=== PATIENT | female | born 1960 | race Caucasian/White ===

== ENCOUNTER → 2016-04-11 | Outpatient (CLI) | payer BC ==
[~2016-04-11] MED LIST: ACET325T38 PO; ASPI1TAB PO; CATHETER FLUSH 10 ML SYR IV PRN; CLC500CT PO; DIPH25TA82 PO; IOHEXOL 350 MG/ML 100 ML (OMNIPAQUE 350) VIAL IV ONE; LANS30CA PO; LVT.025T PO; METO50TA7 PO; NS 100 ML (IVPB) BAG IV ONE; OMEP20CA12 PO; VITAMINES PO; [UNRECOGNIZED DRUG - OTHER] PO
--- OUTSIDE RECORDS SUMMARY | 2016-04-11 14:28 | XMS REPORT | Continuity of Care Document ---
Author Author [facility] Organization [facility] Address Unknown Phone Unavailable Care Team Providers Care Tire Rebuilder Name Role Phone MOLINA VILLALOBOS MD PCP Insurance Providers Payer Name Policy Number Subscriber Name Relationship [facility] [id number] Miguel Sosa 01 Advance Directives Directive Response Recorded Date/Time Advance Directives No 08/02/15 11:30pm Health Care Power of Baker Apprentice No 08/02/15 11:30pm Organ Donor No 08/02/15 11:30pm Resuscitation Status Full Code 08/02/15 11:30pm Chief Complaint and Reason for Visit Chief Complaint Laceration Reason for Visit Laceration Problems Active Problems Medical Problem Onset Date Status Chest pain Unknown Acute Gastritis Unknown Acute Hypertension Unknown Chronic Hypothyroid Unknown Chronic Laceration Unknown Acute Medications Current Home Medications Medication Dose Units Route Directions Days/Qty Instructions Start Date Levothyroxine Sodium (Levothroid) 25 Mcg 25 Mcg Oral Daily 07/22/12 Metoprolol Succinate 50 Mg 50 Mg Oral Bedtime 07/22/12 Diphenhydramine Hcl (Benadryl) 25 Mg 25 Mg Oral Three Times A Day as needed for Allergies 04/15/14 Lansoprazole 30 Mg 30 Mg Oral Daily as needed for Acid Reflux/Heartburn 07/10/14 Acetaminophen 325 Mg 500 Mg Oral Three Times A Day as needed for Mild Pain 07/10/14 Past Home Medications Medication Directions Ordered Status [Vitamines] , Oral 07/22/12 Discontinued [Vitamine B] , Oral 07/22/12 Discontinued Calcium Carbonate 500 Mg Tab.chew, 500 Mg Oral As Needed 07/22/12 Discontinued Omeprazole 20 Mg Capsule.dr, 20 Mg Oral Daily 04/15/14 Discontinued Acetaminophen 325 Mg Tablet, 325 Mg Oral As Needed 04/15/14 Discontinued Aspirin/Acetaminophen/Caffeine 1 Tab Tablet, 1 Tab Oral As Needed 04/15/14 Discontinued Lansoprazole 30 Mg Capsule.dr, 30 Mg Oral Daily 07/10/14 Discontinued Social History Social History Problem Response Recorded Date/Time Alcohol Use Denies Use 08/02/2015 11:30pm Recreational Drug Use No 08/02/2015 11:30pm Recent Foreign Travel No 08/02/2015 11:31pm Recent Infectious Disease Exposure No 08/02/2015 11:31pm Hospitalization with Isolation Denies 08/02/2015 11:31pm Smoking Status Never a Smoker 08/02/2015 11:30pm Do you dip or chew tobacco? No 08/02/2015 11:30pm Query Response Start Date Stop Date Smoking Status Never a Smoker Hospital Discharge Instructions No hospital discharge instructions. Plan of Care Discharge Date 08/03/15 12:59am Disposition 01 HOME, SELF-CARE Condition at Discharge Improved Instructions/Education Provided Finger Laceration (ED) Prescriptions See Medication Section Referrals MOLINA VILLALOBOS MD - Primary Care Physician Additional Instructions/Education Keep the wound clean and dry except for normal handwashing and showering. Allow the glue to naturally slough off. You may trim the edges with a small scissors or finger now clippers taking care not to cut the skin. Monitor for signs of infection such as increasing redness, increasing pain, puslike drainage, or fever. Return to care if you notice these symptoms. All discharge instructions reviewed with patient and/or family. Voiced understanding. Functional Status No functional status results. Allergies, Adverse Reactions, Alerts Allergen Type Severity Reaction Status Last Updated NKANo Known Allergies Allergy Unknown Active 04/23/06 Immunizations Name Given Type Hepatitis A No Historical Hepatitis B No Historical Tetanus Booster (TDap) More than 5yrs Historical Vital Signs Acute Vital Signs Vital Response Date/Time Temperature (Fahrenheit) 97.3 degrees F (97.6 - 99.5) 08/02/2015 11:31pm Temperature (Calculated Celsius) 36.06323 degrees C (36.4 - 37.5) 08/02/2015 11:31pm Pulse Rate (adult) 70 bpm (60 - 90) 08/02/2015 11:31pm Respiratory Rate 18 bpm (12 - 24) 08/02/2015 11:31pm O2 Sat by Pulse Oximetry 97 % (88 - 100) 08/02/2015 11:31pm Blood Pressure 162/91 mm Hg 08/02/2015 11:31pm Blood Pressure Mean 114 mm Hg 08/02/2015 11:31pm Pain Pain Intensity 2 08/02/2015 11:31pm Height (Feet) 5 feet 08/02/2015 11:31pm Height (Inches) 5 inches 08/02/2015 11:31pm Height (Calculated Centimeters) 165.153520 cm 08/02/2015 11:31pm Weight (Pounds) 185 pounds 08/02/2015 11:31pm Weight (Calculated Kilograms) 83.522539 kilograms 08/02/2015 11:31pm Height 5 ft 5 in Weight 185 lb Body Mass Index 30.8 kg/m^2 Results No known relevant diagnostic tests, laboratory data and/or discharge summary. Procedures No known history of procedures. Encounters Encounter Location Arrival/Admit Date Discharge/Depart Date Attending Provider Departed Emergency Room [facility] 08/02/15 11:24pm 12:59am LINA NUNN MD Recent Diagnosis
[2016-04-11 15:09] LABS: BASOPHILS % (AUTO) 0 % (0-10); EOSINOPHILS # (AUTO) 0.2 10^3/uL (0.0-0.3); EOSINOPHILS % (AUTO) 4 % (0-10); LYMPHOCYTES # (AUTO) 1.5 X 10^3 (1.0-4.0); LYMPHOCYTES % (AUTO) 27 % (12-44); MEAN CORPUSCULAR HEMOGLOBIN 28 PG (25-34); MEAN CORPUSCULAR HGB CONC 32 G/DL (32-36); MEAN CORPUSCULAR VOLUME 87 FL (80-99); MEAN PLATELET VOLUME 9.3 FL (7.4-10.4); MONOCYTES # (AUTO) 0.8 X 10^3 (0.0-1.0); MONOCYTES % (AUTO) 14 % (0-12); NEUTROPHILS # (AUTO) 3.1 X 10^3 (1.8-7.8); NEUTROPHILS % (AUTO) 55 % (42-75); PLATELET COUNT 309 10^3/uL (130-400); RED BLOOD COUNT 4.81 10^6/uL (4.35-5.85); RED CELL DISTRIBUTION WIDTH 14.7 % (10.0-14.5); WHITE BLOOD COUNT 5.6 10^3/uL (4.3-11.0)
[2016-04-11 15:28] LABS: ALANINE AMINOTRANSFERASE 29 U/L (0-55); ALBUMIN 4.4 G/DL (3.2-4.5); ANION GAP 12 MMOL/L (5-14); ASPARTATE AMINO TRANSFERASE 31 U/L (5-34); BILIRUBIN,TOTAL 0.4 MG/DL (0.1-1.0); BLOOD UREA NITROGEN 12 MG/DL (7-18); BUN/CREATININE RATIO 15; CARBON DIOXIDE 24 MMOL/L (21-32); CHLORIDE 106 MMOL/L (98-107); GFR ESTIMATED > 60; GLUCOSE 100 MG/DL (70-105); POTASSIUM 3.9 MMOL/L (3.6-5.0); SODIUM 142 MMOL/L (135-145); TOTAL PROTEIN 7.1 G/DL (6.4-8.2)
[2016-04-11 15:52] LABS: THYROID STIMULATING HORMONE 1.38 UIU/ML (0.35-4.94)
--- NOTE | 2016-04-11 16:44 | Diagnostic Imaging Report ---
PROCEDURE: CT abdomen and pelvis with contrast. TECHNIQUE: Multiple contiguous axial images were obtained through the abdomen and pelvis after administration of intravenous contrast. INDICATION: Neck and abdominal pain, difficulty swallowing, suspicion for hernia. COMPARISON: I have no priors. FINDINGS: The lung bases are clear. The visualized lower thoracic esophagus and EG junction appeared unremarkable. No hernia was demonstrated at this exam. The liver, spleen, adrenals, pancreas, and gallbladder are unremarkable. There is no biliary ductal dilatation. A surface marker is placed in the left abdominal wall just above the umbilicus with no underlying hernia, mass, or fluid collection. There are some chronic calcifications associated with the rectus sheath noted. No fluid collection or hematoma. Kidneys are unobstructed and normal. The adrenals are negative. There is no mesenteric nor retroperitoneal lymphadenopathy. The uterus, adnexa, and urinary bladder are unremarkable. There is no appendicitis or diverticulitis. There is no ascites, abscess, hematoma, or other fluid collection. No pneumatosis or free air. No aneurysm, adenopathy, or mass. The osseous structures were nonacute. IMPRESSION: Unremarkable abdominal and pelvic CT. Dictated by: Dictated on workstation # [id number]
== END ==
LOC: RAD 14:20
PROVIDERS: ATTEND Nurse Practitioner Family
DX: R10.13 Epigastric pain (principal); R07.9 Chest pain, unspecified; E04.1 Nontoxic single thyroid nodule
CPT/HCPCS: 36415; 74177; 80053; 84439; 84443; 85025; 93005

== ENCOUNTER → 2016-05-03 | Outpatient (CLI) | payer BC ==
[~2016-05-03] MED LIST changes: -CATHETER FLUSH 10 ML SYR IV PRN; -IOHEXOL 350 MG/ML 100 ML (OMNIPAQUE 350) VIAL IV ONE; -NS 100 ML (IVPB) BAG IV ONE
--- NOTE | 2016-05-03 14:38 | Diagnostic Imaging Report ---
PROCEDURE: US Thyroid. TECHNIQUE: Multiple real-time grayscale images were obtained of the thyroid in various projections. INDICATION: Thyroid nodules. FINDINGS: The right thyroid lobe is 4.6 x 1.3 x 1.5 cm. The left lobe is 5.2 x 1.1 x 1.2 cm. In the right lobe, there is a nodule measuring 1.3 x 0.9 x 1.2 cm and a slightly smaller nodule more superiorly measuring 0.9 cm in size. Both nodules are isoechoic and demonstrate increased vascularity compatible with solid nodules. The background thyroid parenchyma is slightly heterogenous with no other discrete lesion seen. When compared to prior study of a 09/02/2014, there is slight increase in size of the dominant nodule. IMPRESSION: Two solid thyroid nodules in the right lobe up to 1.3 cm in size, slightly larger compared to 09/02/2014 exam. Etiology is still favored to be benign. However, due to the mild enlargement, close followup exams or evaluation with ultrasound-guided biopsy is recommended. Dictated by: Dictated on workstation # [id number]
== END ==
LOC: RAD 09:40
PROVIDERS: ATTEND Nurse Practitioner Family
DX: E04.1 Nontoxic single thyroid nodule (principal)
CPT/HCPCS: 76536

== ENCOUNTER → 2016-05-20 | Outpatient (CLI) | payer BC ==
[~2016-05-20] VITALS: Ht 165.1 cm; Wt 84.0 kg
[~2016-05-20] MED LIST changes: +LIDOCAINE 1% INJ 20 ML (XYLOCAINE) VIAL INJ ONE
[2016-05-20 13:24] VITALS: BP 128/80
[2016-05-20 14:03] VITALS: BP 124/78
--- NOTE | 2016-05-20 14:43 | Diagnostic Imaging Report ---
EXAMINATION: US-guided fine needle biopsy-thyroid. INDICATION: Right thyroid nodule. CONSENT: Informed consent was obtained from the patient. The risks, benefits, potential complications and alternatives were reviewed and all questions answered to the patient's satisfaction. FINDINGS: Right thyroid solid nodule. PROCEDURE: After sterile preparation and draping, 1% lidocaine was utilized for local anesthesia. A 25-gauge hypodermic needle is introduced into the right thyroid nodule under live ultrasound guidance. After confirming adequate positioning with saved ultrasound images, multiple passes of fine needle aspiration is performed and repeated 4 times. The patient tolerated the procedure well with no immediate complications. IMPRESSION: Successful US-guided fine needle aspiration biopsy of right thyroid nodule. Dictated by: Dictated on workstation # [id number]
== END ==
LOC: RAD 12:38
PROVIDERS: ATTEND Nurse Practitioner Family
DX: E04.1 Nontoxic single thyroid nodule (principal)
CPT/HCPCS: 76942; 88305

== ENCOUNTER → 2016-11-05 | Outpatient (CLI) | payer BC ==
[~2016-11-05] MED LIST changes: -LIDOCAINE 1% INJ 20 ML (XYLOCAINE) VIAL INJ ONE
--- NOTE | 2016-11-05 16:16 | Diagnostic Imaging Report ---
PROCEDURE: US Thyroid. TECHNIQUE: Multiple real-time grayscale images were obtained of the thyroid in various projections. INDICATION: Thyroid nodules. COMPARISON: 05/03/2016. FINDINGS: The right thyroid lobe is 4 x 1.1 x 1.6 cm. The left lobe is 4.7 x 1.4 x 1.2 cm. The right lobe demonstrates superiorly a nodule measuring 0.7 x 0.8 x 0.7 cm and at mid right thyroid level another nodule measuring 1.1 x 0.9 x 0.8 cm. Internal vascularity is demonstrated suggestive of solid nature of both nodules. The mid right thyroid nodule is minimally smaller compared to the previous exam measurements of 1.3 cm and the upper right thyroid nodule is unchanged. IMPRESSION: Thyroid nodules in the upper and mid right thyroid lobe measuring up to 1.1 cm in size with no adverse development. Note is made of prior biopsy. Correlate with pathology results. Dictated by: Dictated on workstation # [id number]
== END ==
LOC: RAD 13:45
PROVIDERS: ATTEND Family Medicine
DX: E04.2 Nontoxic multinodular goiter (principal)
CPT/HCPCS: 76536

== ENCOUNTER → 2016-11-28 | Outpatient (CLI) | payer BC | LOC: LAB 13:30 | PROVIDERS: ATTEND Surgery | DX: E04.1 Nontoxic single thyroid nodule (principal); Z80.8 Family history of malignant neoplasm of other organs or systems | CPT/HCPCS: 36415; 84436; 84443; 86376; 86800 ==

== ENCOUNTER 2016-12-12 05:31 | Outpatient (CLI) | payer BC ==
[~2016-12-12] VITALS: Ht 165.1 cm; Wt 89.9 kg
[2016-12-12] MEDS ORDERED: CALC500T7 PO (14:46)
[2016-12-12] MEDS ORDERED: DIPH25CA6 PO (14:46)
[2016-12-12] MEDS ORDERED: CALC-6 PO (14:46)
[2016-12-12] MEDS ORDERED: LEVO25TA5 PO (14:46)
[2016-12-12] MEDS ORDERED: MULT-35 PO (14:46)
[2016-12-12] MEDS ORDERED: ACET325T49 PO (14:46)
[2016-12-12] MEDS ORDERED: METO-272 PO (14:46)
== END 2016-12-12 15:12 ==
LOC: PREOP 05:31
PROVIDERS: ATTEND Surgery
DX: Z01.818 Encounter for other preprocedural examination (principal); E04.9 Nontoxic goiter, unspecified; Z80.8 Family history of malignant neoplasm of other organs or systems

== ENCOUNTER 2016-12-18 06:00 | Day surgery (SDC) | payer BC ==
[~2016-12-18] VITALS: Ht 165.1 cm; Wt 89.9 kg
[~2016-12-18 06:00] MED LIST changes: +ACET325T49 PO; +CALC-6 PO; +CALC500T7 PO; +DIPH25CA6 PO; +LEVO25TA5 PO; +METO-370 PO; +MULT-35 PO
--- OUTSIDE RECORDS SUMMARY | 2016-12-18 06:04 | XMS REPORT ---
Author MADHAV Velasco Organization [employer] Address Unknown Phone Unavailable Care Team Providers Care Generator Rebuilder Name Role Phone MADHAV JIMÉNEZ Unavailable Allergies No Known Allergies Problems Problem Type Condition Code Onset Dates Condition Status Assessment Encounter for immunization Z23 Active Medications No Known Medications Procedures Procedure Coding System Code Date SINGLE IMMUNIZATION ADMIN CPT-4 80573 Nov 28, 2014 TDAP (BOOSTRIX) CPT-4 68947 Nov 28, 2014 Results No Known Results Immunizations Vaccine Administration Date TDAP (BOOSTRIX) Nov 28, 2014 Summary Purpose [employer] Submission
[2016-12-18 06:15] VITALS: BP 129/90
[2016-12-18] MEDS: LACTATED RINGERS 1,000 ML IV SCH ×4 (06:30→14:28)
[2016-12-18] MEDS ORDERED: LACTATED RINGERS 1,000 ML IV ONE (06:35)
[2016-12-18] MEDS ORDERED: SEVOFLURANE (ULTANE) 15 ML INHAL SOLN ONE ×10 (06:35→10:15)
[2016-12-18] MEDS ORDERED: DEXAMETHASONE 10 MG/ML (DECADRON) 1 ML VIAL ONE (06:35)
[2016-12-18] MEDS ORDERED: proPOfol 200 MG/20 ML (DIPRIVAN) VIAL IV ONE (06:35)
[2016-12-18] MEDS ORDERED: HURRICAINE EXT TUBE (BENZOCAINE) ONE (06:35)
[2016-12-18] MEDS ORDERED: LIDOCAINE PF 2% 5 ML (XYLOCAINE) VIAL ONE ×2 (06:35→06:41)
[2016-12-18] MEDS ORDERED: ATRACURIUM 50 MG/5 ML (TRACRIUM) IV ONE (06:46)
[2016-12-18 06:50] LABS: MEAN PLATELET VOLUME 9.7 FL (7.4-10.4); RED BLOOD COUNT 5.08 10^6/uL (4.35-5.85); RED CELL DISTRIBUTION WIDTH 13.1 % (10.0-14.5); WHITE BLOOD COUNT 5.8 10^3/uL (4.3-11.0)
[2016-12-18] MEDS ORDERED: DEXMEDETOMIDINE 200 MCG/2 ML (PRECEDEX) VIAL IV ONE (06:59)
[2016-12-18] MEDS ORDERED: ceFAZolin 2 GM/NS 50 ML IV ONE (07:00)
[2016-12-18] MEDS ORDERED: THROMBIN SPRAY KIT 5,000 UNIT VIAL ONE (07:16)
[2016-12-18] MEDS ORDERED: BUP/EPI 0.5% 1:200,000 (MARCAINE) 10ML VIAL IJ ONE (07:16)
[2016-12-18 07:17] LABS: ANION GAP 11 MMOL/L (5-14); BLOOD UREA NITROGEN 14 MG/DL (7-18); BUN/CREATININE RATIO 18; CALCIUM 9.7 MG/DL (8.5-10.1); CARBON DIOXIDE 22 MMOL/L (21-32); CHLORIDE 107 MMOL/L (98-107); CREATININE SERUM 0.76 MG/DL (0.60-1.30); GFR ESTIMATED > 60; GLUCOSE 112 MG/DL (70-105); POTASSIUM 3.9 MMOL/L (3.6-5.0); SODIUM 140 MMOL/L (135-145)
--- NOTE | 2016-12-18 07:50 | Progress Note-Pre Operative ---
Pre-Operative Progress Note H&P Reviewed The H&P was reviewed, patient examined and no changes noted. Date Seen by Provider: Nov 28, 2016 Time Seen by Provider: 11:45 Date H&P Reviewed: Dec 18, 2016 Time H&P Reviewed: 07:49 Pre-Operative Diagnosis: Right thyroid nodules NIKOLE TORRES MD Dec 18, 2016 7:50 am
--- NOTE | 2016-12-18 09:45 | Operative Report ---
Operative Report Date of Procedure/Surgery Dec 18, 2016 Surgeon (s) NIKOLE TORRES MD Bedspread Folder (s): Junie luong (Med Student) Post-Operative Diagnosis same Procedure Performed 1.right hemithyroidectomy frozen section analysis 2. Intraoperative nerve monitoring( recurrent laryngeal nerve) Description of Procedure Anesthesia Type: General Estimated blood loss (mL): minimal Specimen(s) collected/removed right lobe of thyroid with the isthmus Description of the Procedure Indication for procedure: This lady was found to have right thyroid nodules, the larger measuring 1.5 cm in diameter. Fine needle aspiration was non diagnostic; having discussed the options of repeating the biopsy versus proceeding with surgery to achieve a definitive diagnosis, it was felt reasonable to proceed with an operative approach. Should carcinoma be discovered on frozen section, the need for completion thyroidectomy was discussed with her.Informed consent was obtained after reviewing the operative details and complications of postoperative hematoma, transient hoarseness of voice and see me. The potential for finding a carcinoma on permanent histologic examination and the requirement for completion thyroidectomy at a later date was also highlighted. Description of the procedure: she was placed supine on the operative table and general anesthesia induced using an endotracheal tube, integrated with the nerve monitoring device. 1 g of Ancef was administered intravenously as prophylaxis against wound infection. Sequential compression devices were placed around her legs, to minimize the risk of venous thrombosis. Her neck and upper chest were prepared and draped in the usual sterile manner. Pre-emptive analgesia was established using 0.25 percent Marcaine with epinephrine. A 3.5 cm transverse incision was made along the skin crease of the neck and platysma incised transversely. Flaps were raised superiorly to the level of the thyroid cartilage and inferiorly to the sternal notch. Cervical fascia was incised vertically and the strap muscles were retracted laterally. The right lobe of the thyroid was retracted, displaying both parathyroid glands. They were preserved, along with their blood supply. Superior thyroid artery was then controlled between 0 silk sutures, reinforced with a Ligaclip. Branches of the inferior thyroid artery were controlled using ligaclips and minimal use of Harmonic scalpel. Recurrent laryngeal nerve was found in its conventional position and preserved by constant visual inspection and intermittent nerve stimulation technique. The isthmus of the thyroid was then divided and the right lobe sent for frozen section analysis. The pathologist reported benign changes within the nodule and therefore the operation was concluded. We had the anesthesiologist conduct Valsalva maneuver, looking for any venous bleeding. There wasn't any. Neck was then flexed, in preparation for closure. Gelfoam, soaked in thrombin solution was placed along the tracheal-esophageal groove, to optimize hemostasis. Cervical fascia was approximated with 3-0 Vicryl and platysma using the same material. Skin was closed using 4-0 Vicryl, in a subcuticular fashion. Findings of the Procedure See op report Allergies and Home Medications Allergies Coded Allergies: acetaminophen (Verified Allergy, Mild, HIVES, 12/12/16) butalbital (Verified Allergy, Mild, HIVES, 12/12/16) caffeine (Verified Allergy, Mild, HIVES, 12/12/16) Home Medications Acetaminophen 325 Mg Tablet, 650 MG PO PRN, (Reported) Calcium Carbonate 200 Mg Tab.chew, 200 MG PO PRN, (Reported) Calcium Carbonate/Vitamin D3 1 Each Tablet, 1 EACH PO DAILY, (Reported) Diphenhydramine HCl 25 Mg Capsule, PO BID PRN for CONGESTION, (Reported) Levothyroxine Sodium 25 Mcg Tablet, 25 MCG PO DAILY, (Reported) Metoprolol Succinate 50 Mg Tab.er.24h, 50 MG PO HS, (Reported) Multivitamin 1 Each Tablet, 1 EACH PO DAILY, (Reported) NIKOLE TORRES MD Dec 18, 2016 9:45 am
[2016-12-18] MEDS ORDERED: HYDR-3812 PO (09:55)
--- NOTE | 2016-12-18 09:57 | Discharge Inst-Simple/Standard ---
Discharge Inst-Standard Discharge Medications New, Converted or Re-Newed RX: RX on Chart Patient Instructions/Follow Up Plan of Care/Instructions/FU: dressings off in a.m. Follow-up in 3 weeks Activity as Tolerated: Yes Discharge Diet: No Restrictions NIKOLE TORRES MD Dec 18, 2016 9:57 am
[2016-12-18] MEDS ORDERED: fentaNYL INJECTION 100 MCG/2 ML AMP IVP PRN (10:00)
[2016-12-18] MEDS ORDERED: HYDROcodone/APAP 5 MG/325 MG (LORTAB) TAB PO PRN (10:00)
[2016-12-18] MEDS ORDERED: ONDANSETRON 4 MG/2 ML (SDV) Z0FRAN IVP PRN (10:00)
[2016-12-18] MEDS ORDERED: morphine INJ 10 MG/ML 1ML (SYR OR VIAL) ONE (10:00)
[2016-12-18] MEDS: morphine INJ 10 MG/ML 1ML (SYR OR VIAL) IVP PRN ×3 (10:26→10:35)
[2016-12-18 12:10] VITALS: BP 111/71
[2016-12-18] MEDS ORDERED: INFLUENZA TRIvalent 2017-2018 0.5 ML/45 MCG SYR IM ONE (13:30)
[2016-12-18 16:00] VITALS: BP 116/70
[2016-12-18] MEDS ORDERED: METOCLOPRAMIDE INJ 10 MG/2 ML (REGLAN) IVP NR (16:00)
[2016-12-18 20:00] VITALS: BP 118/74
[2016-12-18] MEDS ORDERED: meTOproloL SUCCINATE 50 MG (TOPROL XL) TAB PO SCH (21:00)
[2016-12-19] VITALS: BP 129/73
[2016-12-19] MEDS: LACTATED RINGERS 1,000 ML IV SCH ×3 (02:28→12:27)
[2016-12-19 04:00] VITALS: BP 136/77
[2016-12-19 07:36] VITALS: BP 122/72
--- NOTE | 2016-12-19 10:55 | Progress Note-Standard ---
Standard Progress Note Progress Notes/Assess & Plan Date Seen by Provider: Dec 19, 2016 Time Seen by Provider: 10:54 Progress/Assessment & Plan doing well. Postoperative nausea vomiting resolved. No hematoma. Vocal cord function normal. Discharge home Final Diagnosis thyroid nodule NIKOLE TORRES MD Dec 19, 2016 10:55 am
[2016-12-19 12:00] VITALS: BP 132/74
--- NOTE | 2016-12-19 14:55 | Anesthesia-General Post-Op ---
General Post Op Complications Complications None Follow Up Care/Instructions Patient Instructions None needed. Anesthesia/Patient Condition Patient Condition Patient is doing well, no complaints at this time, stable vital signs. Patient reports PONV yesterday and was instructed to alert anesthesia in advance for further surgeries. She state Kareem took care of it.. No complications reported per nursing. CHRISTINE LEE CRNA Dec 19, 2016 14:55
== END 2016-12-19 12:20 | disposition home or self-care (01) ==
LOC: SDC 06:00 → 4TH 11:22 → SDC 12-19 12:20
PROVIDERS: ATTEND Surgery
DX: E04.2 Nontoxic multinodular goiter (principal); E03.9 Hypothyroidism, unspecified; I10 Essential (primary) hypertension; I08.1 Rheumatic disorders of both mitral and tricuspid valves; K21.9 Gastro-esophageal reflux disease without esophagitis; E66.9 Obesity, unspecified; Z68.33 Body mass index [BMI] 33.0-33.9, adult; Z80.8 Family history of malignant neoplasm of other organs or systems; Z79.899 Other long term (current) drug therapy
CPT/HCPCS: 36415; 80048; 84703; 85027; 87081; 94664

== ENCOUNTER → 2017-02-05 | Outpatient (CLI) | payer BC ==
[~2017-02-05] MED LIST changes: +ACHD5005 PO
== END ==
LOC: LAB 15:08
PROVIDERS: ATTEND Surgery
DX: E89.0 Postprocedural hypothyroidism (principal)
CPT/HCPCS: 36415; 84436; 84443

== ENCOUNTER 2017-08-25 05:57 | Outpatient (CLI) | payer BC ==
[~2017-08-25] VITALS: Ht 165.1 cm; Wt 89.8 kg
[2017-08-25] MEDS ORDERED: LEVO50TA6 PO (14:25)
== END 2017-08-25 14:26 ==
LOC: PREOP 05:57
PROVIDERS: ATTEND Surgery
DX: Z01.818 Encounter for other preprocedural examination (principal); Z12.11 Encounter for screening for malignant neoplasm of colon; Z80.0 Family history of malignant neoplasm of digestive organs

== ENCOUNTER 2017-09-01 10:10 | Day surgery (SDC) | payer BC ==
[~2017-09-01] VITALS: Ht 165.1 cm; Wt 89.8 kg
[~2017-09-01 10:10] MED LIST changes: +LEVO50TA6 PO
[2017-09-01] MEDS ORDERED: NS IV 500 ML 500 ML ONE (10:26)
[2017-09-01] MEDS ORDERED: NS IV 500 ML 500 ML IV PRN (10:27)
--- OUTSIDE RECORDS SUMMARY | 2017-09-01 10:37 | XMS REPORT | CCD ---
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 Name Role Phone PP Unavailable CCM Unavailable Summary Purpose Interface Exchange Insurance Providers Payer name Policy type / Coverage type Covered libertarian ID Effective Begin Date Effective End Date Blue Cross [facility] Blue Cross/[facility] [id number] 2016 Unknown Family history Mother ( at [id number]) Diagnosis Age At Onset Hypertension Unknown Colon cancer Unknown Asthma Unknown kidney disease Unknown Father Diagnosis Age At Onset Cancer Unknown Diabetes Unknown Hyperlipidemia Unknown Osteomyelitis Unknown Arthritis Unknown Hypertension Unknown Social History Social History Element Codes Description Effective Dates Marital status Unknown Miguel 12/28/2015 Number of children Unknown 3 08/30/[address]: 925872776 Never smoker 08/30/[address]: 277439343 Never drinks alcohol 08/30/2014 Allergies, Adverse Reactions, Alerts Allergies, Adverse Reactions, Alerts data not found Past Medical History Illness Codes Condition Status Onset Date Resolved Date Atrophy of thyroid (acquired) ICD-9: 244.8 ICD-10: E03.4 Active 05/22/2016 Unknown Essential (primary) hypertension ICD-9: 401.1 ICD-10: I10 Active 05/22/2016 Unknown Gastro-esophageal reflux disease without esophagitis ICD-9: 530.81 ICD-10: K21.9 Active 12/27/2015 Unknown Pain in left knee ICD- 9: 719.46 ICD-10: M25.562 Active 11/20/2016 Unknown Pain in right knee ICD -9: 719.46 ICD-10: M25.561 Active 11/20/2016 Unknown Headache ICD-9: 784.0 ICD-10: R51 Active 05/22/2016 Unknown Generalized abdominal pain ICD-9: 789.07 ICD-10: R10.84 Active 04/11/2016 Unknown Other specified hypothyroidism ICD-9: 244.8 ICD-10: E03.8 Active 11/29/2015 Unknown Essential (primary) hypertension ICD-9: 401.9 ICD-10: I10 Active 08/29/2014 Unknown Generalized anxiety disorder ICD-9: 300.02 ICD-10: F41.1 Active 12/27/2015 Unknown Pleurisy ICD-9: 511.0 ICD-10: R09.1 Active 12/27/2015 Unknown Hypothyroidism, unspecified ICD-9: 244.9 ICD-10: E03.9 Active 11/29/2015 Unknown Palpitations ICD-9: 785.1 ICD-10: R00.2 Active 11/29/2015 Unknown Encounter for screening mammogram for malignant neoplasm of breast ICD-9: V76.12 ICD-10: Z12.31 Active 10/05/2015 Unknown Laceration without foreign body of left index finger without damage to nail, subsequent encounter ICD-9: V58.89 ICD-10: S61.211D Active 08/14/2015 Unknown Laceration without foreign body of left index finger without damage to nail, initial encounter ICD-9: 883.0 ICD-10: S61.211A Active 08/02/2015 Unknown Localized swelling, mass and lump, right lower limb ICD-9: 782.2 ICD-10: R22.41 Active 12/19/2014 Unknown Other specified nontoxic goiter ICD-9: 240.9 ICD-10: E04.8 Active 08/29/2014 Unknown Hypertension Unknown Active 08/30/2014 Unknown ESSENTIAL HYPERTENSION ICD-9: 401.9 Active 08/29/2014 Unknown Goiter ICD-9: 240.9 Active 08/29/2014 Unknown Problems Condition Codes Effective Dates Condition Status Atrophy of thyroid (acquired) ICD-9: 244.8 ICD-10: E03.4 05/22/2016 Active Essential (primary) hypertension ICD-9: 401.1 ICD-10: I10 05/22/2016 Active Gastro-esophageal reflux disease without esophagitis ICD-9: 530.81 ICD-10: K21.9 12/27/2015 Active Pain in left knee ICD- 9: 719.46 ICD-10: M25.562 11/20/2016 Active Pain in right knee ICD -9: 719.46 ICD-10: M25.561 11/20/2016 Active Headache ICD-9: 784.0 ICD-10: R51 05/22/2016 Active Generalized abdominal pain ICD-9: 789.07 ICD-10: R10.84 04/11/2016 Active Other specified hypothyroidism ICD-9: 244.8 ICD-10: E03.8 11/29/2015 Active Essential (primary) hypertension ICD-9: 401.9 ICD-10: I10 08/29/2014 Active Generalized anxiety disorder ICD-9: 300.02 ICD-10: F41.1 12/27/2015 Active Pleurisy ICD-9: 511.0 ICD-10: R09.1 12/27/2015 Active Hypothyroidism, unspecified ICD-9: 244.9 ICD-10: E03.9 11/29/2015 Active Palpitations ICD-9: 785.1 ICD-10: R00.2 11/29/2015 Active Encounter for screening mammogram for malignant neoplasm of breast ICD-9: V76.12 ICD-10: Z12.31 10/05/2015 Active Laceration without foreign body of left index finger without damage to nail, subsequent encounter ICD-9: V58.89 ICD-10: S61.211D 08/14/2015 Active Laceration without foreign body of left index finger without damage to nail, initial encounter ICD-9: 883.0 ICD-10: S61.211A 08/02/2015 Active Localized swelling, mass and lump, right lower limb ICD-9: 782.2 ICD-10: R22.41 12/19/2014 Active Other specified nontoxic goiter ICD-9: 240.9 ICD-10: E04.8 08/29/2014 Active Hypertension Unknown 08/30/2014 Active ESSENTIAL HYPERTENSION ICD-9: 401.9 08/29/2014 Active Goiter ICD-9: 240.9 08/29/2014 Active Medications Medication Codes Instructions Start Date Stop Date Status Fill Instructions levothyroxine 25 mcg tablet RxNorm: 299752 TAKE ONE TABLET BY MOUTH ONCE DAILY 03/26/2017 No Stop Date Active Toprol XL 50 mg tablet,extended release RxNorm: 612434 TAKE ONE TABLET BY MOUTH ONCE DAILY 01/16/2017 No Stop Date Active levothyroxine 25 mcg tablet RxNorm: 282670 TAKE ONE TABLET BY MOUTH ONCE DAILY 06/28/2016 12/24/2016 Inactive cyclobenzaprine 5 mg tablet RxNorm: 291292 1 Tablet(s) PO BID as needed muscle tension or headache 05/22/2016 No Stop Date Active tramadol 50 mg tablet RxNorm: 096993 1 Tablet(s) PO TID as needed migraine pain 05/22/2016 No Stop Date Active omeprazole 40 mg capsule,delayed release RxNorm: 511304 1 Capsule(s) PO daily 04/12/2016 05/11/2016 Inactive omeprazole 40 mg capsule,delayed release RxNorm: 904749 1 Capsule(s) PO daily 04/12/2016 04/11/2016 Inactive levothyroxine 25 mcg tablet RxNorm: 390250 TAKE ONE TABLET BY MOUTH ONCE DAILY 04/01/2016 06/27/2016 Inactive Carafate 1 gram tablet RxNorm: 331665 1 Tablet(s) PO dissolved in 10mL of water TID 01/25/2016 02/23/2016 Inactive Toprol XL 50 mg tablet,extended release RxNorm: 476811 1 Tablet(s) PO daily 01/19/2016 01/12/2017 Inactive Prilosec OTC 20 mg tablet,delayed release RxNorm: 608466 1 Tablet(s) PO BID 12/28/2015 03/26/2016 Inactive Lexapro 10 mg tablet RxNorm: 184749 1 Tablet(s) PO daily 201512/29/2015 Inactive naproxen 500 mg tablet RxNorm: 880994 1 Tablet(s) PO BID 201501/26/2016 Inactive Lexapro 10 mg tablet RxNorm: 523992 1 Tablet(s) PO daily 201512/27/2015 Inactive Prilosec OTC 20 mg tablet,delayed release RxNorm: 161155 Tablet(s) PO sample given 11/30/2015 12/27/2015 Inactive levothyroxine 25 mcg tablet RxNorm: 795662 TAKE ONE TABLET BY MOUTH ONCE DAILY 09/26/2015 03/23/2016 Inactive Keflex 500 mg capsule RxNorm: 922131 1 Capsule(s) PO TID 201508/09/2015 Inactive amoxicillin 500 mg capsule RxNorm: 842896 4 Capsule(s) TAKE FOUR CAPSULES BY MOUTH ONE HOUR PRIOR TO PROCEDURE 06/06/2015 06/10/2015 Inactive amoxicillin 500 mg capsule RxNorm: 795275 TAKE FOUR CAPSULES BY MOUTH ONE HOUR PRIOR TO PROCEDURE 05/22/2015 05/22/2015 Inactive Toprol XL 50 mg tablet,extended release RxNorm: 851902 1 Tablet(s) PO daily 05/04/2015 01/18/2016 Inactive amoxicillin 500 mg capsule RxNorm: 264539 4 Capsule(s) PO 1 hour before procedure 01/30/2015 01/30/2015 Inactive amoxicillin 500 mg capsule RxNorm: 473461 4 Capsule(s) PO 1 hour before procedure 01/30/2015 01/29/2015 Inactive Voltaren 1 % topical gel RxNorm: 732009 1 Application TOP TID as needed pain 12/20/2014 No Stop Date Active levothyroxine 25 mcg tablet RxNorm: 053304 1 Tablet(s) PO daily 10/12/2014 09/25/2015 Inactive Vitamin C RxNorm: 1 PO daily No Start Date Active Tylenol 500 mg RxNorm : 1 PO PRN No Start Date Active vitamin B complex tablet RxNorm: 1 Tablet(s) PO daily No Start Date Active Rolaids oral RxNorm: 465146 oral No Start Date Active Multivitamin & Mineral Formula tablet RxNorm: 1 Tablet(s) PO daily No Start Date Active Children's Allergy Relief (diphenhyd) oral RxNorm: 1362 oral No Start Date Active famotidine 20 mg tablet RxNorm: 673690 1 Tablet(s) PO daily No Start Date 08/14/2015 Inactive levothyroxine 25 mcg tablet RxNorm: 995084 1 Tablet(s) PO daily No Start Date 10/11/2014 Inactive Toprol XL 50 mg tablet,extended release RxNorm: 764487 1 Tablet(s) PO daily No Start Date 05/03/2015 Inactive Medication Administered No Medication Administered data Immunizations No Immunization data Assessments Condition Codes Effective Dates Pain in right knee ICD-10: M25.561 ICD-9: 719.46 11/20/2016 Gastro-esophageal reflux disease without esophagitis ICD-10 : K21.9 ICD-9: 530.81 11/20/2016 Essential (primary) hypertension ICD-10: I10 ICD-9: 401.1 11/20/2016 Pain in left knee ICD-10: M25.562 ICD-9: 719.46 11/20/2016 Atrophy of thyroid (acquired) ICD-10: E03.4 ICD-9: 244.8 11/20/2016 Headache ICD-10: R51 ICD-9: 784.0 05/22/2016 Other specified hypothyroidism ICD-10: E03.8 ICD-9: 244.8 04/11/2016 Generalized abdominal pain ICD-10: R10.84 ICD-9: 789.07 04/11/2016 Essential (primary) hypertension ICD-10: I10 ICD-9: 401.9 01/25/2016 Generalized anxiety disorder ICD-10: F41.1 ICD-9: 300.02 12/28/2015 Pleurisy ICD-10: R09.1 ICD-9: 511.0 12/28/2015 Palpitations ICD-10: R00.2 ICD-9: 785.1 11/30/2015 Encounter for screening mammogram for malignant neoplasm of breast ICD-10: Z12.31 ICD-9: V76.12 10/06/2015 Laceration without foreign body of left index finger without damage to nail, subsequent encounter ICD-10: S61.211D ICD-9: V58.89 08/15/2015 Laceration without foreign body of left index finger without damage to nail, initial encounter ICD-10: S61.211A ICD-9: 883.0 08/03/2015 Localized swelling, mass and lump, right lower limb ICD-10: R22.41 ICD-9: 782.2 12/20/2014 Other specified nontoxic goiter ICD-10: E04.8 ICD-9: 240.9 12/20/2014 ESSENTIAL HYPERTENSION ICD-9: 401.9 08/30 Goiter ICD-9: 240.9 08/30/2014 Reason For Visit Reason For Visit Effective Dates Notes hypothyroid 11/20/2016 hypothyroid 05/22/2016 abdominal pain 04/11/2016 chest pain/pressure 01/25/2016 chest pain/pressure 12/28/2015 chest pain/pressure 11/30/2015 hypothyroid 08/15/2015 laceration of the finger 08/03/2015 hypothyroid 12/20/2014 hypothyroid 08/30/2014 Results Observation Observation Code Item Item Code Result Date Comp Metabolic Xxf474 NA 138 mEq/L 12/01/2015 Comp Metabolic Mso141 K 4.2 mEq/L 12/01/2015 Comp Metabolic Exy078 CL 103 mEq/L 12/01/2015 Comp Metabolic Jwm114 CO2 26.0 mEq/L 12/01/2015 Comp Metabolic Udx992 ANION GAP 13 12/01/2015 Comp Metabolic Ddn519 GLUCOSE 96 mg/dL 12/01/2015 Comp Metabolic Mel871 Creat 0.8 mg/dL 12/01/2015 Comp Metabolic Mjy378 eGFR 84 ml/min/1.73m2 12/01/2015 Comp Metabolic Aww375 BUN 17 mg/dL 12/01/2015 Comp Metabolic Qbi179 B/C Ratio 22.4 Ratio 12/01/2015 Comp Metabolic Mjw052 CALCIUM 9.6 mg/dL 12/01/2015 Comp Metabolic Jen049 ALK PHOS 95 U/L 12/01/2015 Comp Metabolic Abi918 AST(SGOT) 19 U/L 12/01/2015 Comp Metabolic Gbr669 ALT(SGPT) 21 U/L 12/01/2015 Comp Metabolic Ipf669 BILI T 0.4 mg/dL 12/01/2015 Comp Metabolic Mau550 ALBUMIN 4.4 g/dL 12/01/2015 Comp Metabolic Sen007 TPRO 7.0 g/dL 12/01/2015 Comp Metabolic Naq936 GLOB 2.6 g/dL 12/01/2015 Comp Metabolic Ixo409 A/G Ratio 1.7 Ratio 12/01/2015 Comp Metabolic Kvt520 Osmo 277 mOsmo 12/01/2015 Free T4 Ffp736 FREE T4 0.79 ng/dL 12/01/2015 Tsh Ord6 hTSH II 1.61 uIU/mL 12/01/2015 Cbc With Differential Ord2 WBC 7.65 K/ul 12/01/2015 Cbc With Differential Ord2 RBC 4.55 M/ul 12/01/2015 Cbc With Differential Ord2 HGB 14.0 g/dl 12/01/2015 Cbc With Differential Ord2 HCT 42.4 % 12/01/2015 Cbc With Differential Ord2 Neut% 55.8 % 12/01/2015 Cbc With Differential Ord2 MCV 93.2 fl 12/01/2015 Cbc With Differential Ord2 Lymph% 27.1 % 12/01/2015 Cbc With Differential Ord2 [place]% 11.6 % 12/01/2015 Cbc With Differential Ord2 MCH 30.8 pg 12/01/2015 Cbc With Differential Ord2 MCHC 33.0 pg 12/01/2015 Cbc With Differential Ord2 Eos% 4.6 % 12/01/2015 Cbc With Differential Ord2 Baso% 0.9 % 12/01/2015 Cbc With Differential Ord2 PLT 302 K/ul 12/01/2015 Cbc With Differential Ord2 RDW 13.1 % 12/01/2015 Cbc With Differential Ord2 Neut ABS# 4.27 K/ul 12/01/2015 Cbc With Differential Ord2 Lymph ABS# 2.07 K/ul 12/01/2015 Cbc With Differential Ord2 [place] ABS# 0.9 K/ul 12/01/2015 Cbc With Differential Ord2 Eos ABS# 0.4 K/ul 12/01/2015 Cbc With Differential Ord2 Baso ABS# 0.1 K/ul 12/01/2015 Lipid Ord30 CHOL 176 mg/dL 09/01/2014 Lipid Ord30 HDL 41.0 mg/dl 09/01/2014 Lipid Ord30 TRIG 94 mg/dL 09/01/2014 Lipid Ord30 LDL 116 mg/dL 09/01/2014 Lipid Ord30 C/HDL 4.3 Ratio 09/01/2014 Free T4 Cga913 FREE T4 0.84 ng/dL 09/01/2014 Cbc With Differential Ord2 WBC 4.9 K/uL 09/01/2014 Cbc With Differential Ord2 LYM 1.6 K/uL 09/01/2014 Cbc With Differential Ord2 LYM% 33.5 % 09/01/2014 Cbc With Differential Ord2 NEUT/GRAN 2.9 K/uL 09/01/2014 Cbc With Differential Ord2 NEUT/GRAN % 59.1 % 09/01/2014 Cbc With Differential Ord2 MID 0.4 K/uL 09/01/2014 Cbc With Differential Ord2 MID% 7.4 % 09/01/2014 Cbc With Differential Ord2 RBC 4.47 M/uL 09/01/2014 Cbc With Differential Ord2 HGB 12.6 g/dL 09/01/2014 Cbc With Differential Ord2 HCT 39.3 % 09/01/2014 Cbc With Differential Ord2 MCV 88 fL 09/01/2014 Cbc With Differential Ord2 MCH 28 pg 09/01/2014 Cbc With Differential Ord2 MCHC 32 g/dL 09/01/2014 Cbc With Differential Ord2 PLT 345 K/uL 09/01/2014 Cbc With Differential Ord2 RDW 14.2 % 09/01/2014 Tsh Ord6 hTSH II 2.46 uIU/mL 09/01/2014 Tibc Ord40 Iron 86 ug/dl 09/01/2014 Tibc Ord40 UIBC 233 ug/dL 09/01/2014 Tibc Ord40 TIBC 319 ug/dL 09/01/2014 Tibc Ord40 Fe-%Sat 27.0 % 09/01/2014 Ferritin Ord22 FERRITIN 8.6 ng/mL 09/01/2014 Comp Metabolic Vag682 NA 136 mEq/L 09/01/2014 Comp Metabolic Gii791 K 4.4 mEq/L 09/01/2014 Comp Metabolic Dxp932 CL 102 mEq/L 09/01/2014 Comp Metabolic Rip281 CO2 29.0 mEq/L 09/01/2014 Comp Metabolic Fid784 ANION GAP 9 09/01/2014 Comp Metabolic Upy973 GLUCOSE 91 mg/dL 09/01/2014 Comp Metabolic Thl563 Creat 0.6 mg/dL 09/01/2014 Comp Metabolic Lgh835 eGFR 103 ml/min/1.73m2 09/01/2014 Comp Metabolic Oek056 BUN 15 mg/dL 09/01/2014 Comp Metabolic Fqx286 B/C Ratio 23.4 Ratio 09/01/2014 Comp Metabolic Hyt354 CALCIUM 9.5 mg/dL 09/01/2014 Comp Metabolic Sni030 ALK PHOS 95 U/L 09/01/2014 Comp Metabolic Zej777 AST(SGOT) 15 U/L 09/01/2014 Comp Metabolic Ddm333 ALT(SGPT) 15 U/L 09/01/2014 Comp Metabolic Hyn574 BILI T 0.7 mg/dL 09/01/2014 Comp Metabolic Eoz134 ALBUMIN 4.3 g/dL 09/01/2014 Comp Metabolic Qeh998 TPRO 6.7 g/dL 09/01/2014 Comp Metabolic Lsq988 GLOB 2.4 g/dL 09/01/2014 Comp Metabolic Qqs326 A/G Ratio 1.8 Ratio 09/01/2014 Comp Metabolic Dzg572 Osmo 272 mOsmo 09/01/2014 Review of Systems System Result Effective Dates Constitutional No fever 11/20/2016 Eyes No blindness 11/20/2016 Eyes No vision change 11/20/2016 Ears/Nose/Throat/Neck No nasal allergies 11/20/2016 Cardiovascular chest pain/pressure 2016 Cardiovascular No dyspnea 11/20/2016 Respiratory No chest congestion 2016 Respiratory No cough 11/20/2016 Gastrointestinal No abdominal pain 2016 Gastrointestinal No constipation 2016 Gastrointestinal gastroesophageal reflux 11/20/2016 Musculoskeletal No joint complaint 2016 Dermatologic No rash 11/20/2016 Neurologic No alteration of consciousness 11/20/2016 Neurologic No mental status change 2016 Psychiatric anxiety 11/20/2016 Constitutional weight gain 11/20/2016 Constitutional obesity 11/20/2016 Constitutional No recent illness 2016 Constitutional No chills 05/22/2016 Constitutional No fatigue 05/22/2016 Constitutional No fever 05/22/2016 Constitutional No insomnia 05/22/2016 Constitutional No malaise 05/22/2016 Eyes No blindness 05/22/2016 Eyes No vision change 05/22/2016 Ears/Nose/Throat/Neck No dental pain 01/2017 Ears/Nose/Throat/Neck No dizziness 2016 Ears/Nose/Throat/Neck No headache 2016 Ears/Nose/Throat/Neck No hearing loss 01/2017 Ears/Nose/Throat/Neck No nasal allergies 05/22/2016 Ears/Nose/Throat/Neck No sore throat 01/2017 Ears/Nose/Throat/Neck No postnasal drip 05/22/2016 Ears/Nose/Throat/Neck No sinus congestion 05/22/2016 Cardiovascular No chest pain/pressure 01/2017 Cardiovascular No dyspnea 05/22/2016 Cardiovascular No edema 05/22/2016 Cardiovascular No exercise intolerance Cardiovascular No fatigue 05/22/2016 Cardiovascular No near-syncope/dizziness 05/22/2016 Cardiovascular No palpitations 2016 Respiratory No chest congestion 2016 Respiratory No chest tightness 2016 Respiratory No cough 05/22/2016 Respiratory No dyspnea 05/22/2016 Respiratory No pedal edema 05/22/2016 Gastrointestinal No abdominal pain 2016 Gastrointestinal No constipation 2016 Gastrointestinal No diarrhea 05/22/2016 Gastrointestinal No gastroesophageal reflux 05/22/2016 Gastrointestinal No nausea 05/22/2016 Gastrointestinal No vomiting 05/22/2016 Genitourinary/Nephrology No dysuria 05/22 Genitourinary/Nephrology No nocturia 01/2017 Genitourinary/Nephrology No urinary incontinence 05/22/2016 Musculoskeletal No stiffness 05/22/2016 Musculoskeletal No swelling 05/22/2016 Musculoskeletal No muscle weakness 2016 Musculoskeletal No myalgias 05/22/2016 Dermatologic No rash 05/22/2016 Dermatologic No sores 05/22/2016 Dermatologic No scar 05/22/2016 Neurologic No alteration of consciousness 05/22/2016 Neurologic No dizziness 05/22/2016 Neurologic headache 05/22/2016 Neurologic No neck pain 05/22/2016 Neurologic No syncope 05/22/2016 Psychiatric No anxiety 05/22/2016 Psychiatric No depression 05/22/2016 Constitutional recent illness 04/11/2016 Constitutional No fever 04/11/2016 Eyes No eye erythema 04/11/2016 Ears/Nose/Throat/Neck No nasal allergies 04/11/2016 Ears/Nose/Throat/Neck No nasal discharge 04/11/2016 Ears/Nose/Throat/Neck sore throat 2016 Cardiovascular No chest pain/pressure 03/2016 Respiratory No dyspnea 04/11/2016 Respiratory No cough 04/11/2016 Gastrointestinal abdominal pain 2016 Gastrointestinal gastroesophageal reflux 04/11/2016 Gastrointestinal dyspepsia 04/11/2016 Gastrointestinal No vomiting 04/11/2016 Gastrointestinal gas and bloating 2016 Dermatologic No rash 04/11/2016 Neurologic No alteration of consciousness 04/11/2016 Neurologic No mental status change 2016 Constitutional No fever 01/25/2016 Eyes No blindness 01/25/2016 Eyes No vision change 01/25/2016 Ears/Nose/Throat/Neck No nasal allergies 01/25/2016 Cardiovascular chest pain/pressure 2015 Cardiovascular No dyspnea 01/25/2016 Respiratory No chest congestion 2015 Respiratory No cough 01/25/2016 Gastrointestinal No abdominal pain 2015 Gastrointestinal No constipation 2015 Gastrointestinal gastroesophageal reflux 01/25/2016 Musculoskeletal No joint complaint 2015 Dermatologic No rash 01/25/2016 Neurologic No alteration of consciousness 01/25/2016 Neurologic No mental status change 2015 Psychiatric anxiety 01/25/2016 Constitutional No fever 12/28/2015 Eyes No blindness 12/28/2015 Eyes No vision change 12/28/2015 Ears/Nose/Throat/Neck No nasal allergies 12/28/2015 Cardiovascular chest pain/pressure 2015 Cardiovascular No dyspnea 12/28/2015 Respiratory No chest congestion 2015 Respiratory No cough 12/28/2015 Gastrointestinal No abdominal pain 2015 Gastrointestinal No constipation 2015 Gastrointestinal gastroesophageal reflux 12/28/2015 Musculoskeletal No joint complaint 2015 Dermatologic No rash 12/28/2015 Neurologic No alteration of consciousness 12/28/2015 Neurologic No mental status change 2015 Psychiatric anxiety 12/28/2015 Constitutional No fever 11/30/2015 Eyes No eye erythema 11/30/2015 Eyes No vision change 11/30/2015 Ears/Nose/Throat/Neck No nasal allergies 11/30/2015 Cardiovascular chest pain/pressure 2015 Cardiovascular No dyspnea 11/30/2015 Respiratory No cough 11/30/2015 Gastrointestinal No abdominal pain 2015 Gastrointestinal No constipation 2015 Gastrointestinal No diarrhea 11/30/2015 Gastrointestinal gastroesophageal reflux 11/30/2015 Gastrointestinal No nausea 11/30/2015 Gastrointestinal No vomiting 11/30/2015 Neurologic No alteration of consciousness 11/30/2015 Cardiovascular palpitations 11/30/2015 Respiratory No chest congestion 2015 Musculoskeletal No joint complaint 2015 Dermatologic No rash 11/30/2015 Neurologic No mental status change 2015 Psychiatric anxiety 11/30/2015 Constitutional No recent illness 2015 Constitutional No chills 08/15/2015 Constitutional No fatigue 08/15/2015 Constitutional No fever 08/15/2015 Constitutional No insomnia 08/15/2015 Constitutional No malaise 08/15/2015 Eyes No blindness 08/15/2015 Eyes No vision change 08/15/2015 Ears/Nose/Throat/Neck No dental pain 06/2015 Ears/Nose/Throat/Neck No dizziness 2015 Ears/Nose/Throat/Neck dysphagia 2015 Ears/Nose/Throat/Neck No headache 2015 Ears/Nose/Throat/Neck No hearing loss 06/2015 Ears/Nose/Throat/Neck hoarseness 2015 Ears/Nose/Throat/Neck No nasal allergies 08/15/2015 Ears/Nose/Throat/Neck No sore throat 06/2015 Ears/Nose/Throat/Neck No postnasal drip 08/15/2015 Ears/Nose/Throat/Neck No sinus congestion 08/15/2015 Cardiovascular No chest pain/pressure 06/2015 Cardiovascular No dyspnea 08/15/2015 Cardiovascular No edema 08/15/2015 Cardiovascular No exercise intolerance Cardiovascular No fatigue 08/15/2015 Cardiovascular No near-syncope/dizziness 08/15/2015 Cardiovascular No palpitations 2015 Respiratory No chest congestion 2015 Respiratory No chest tightness 2015 Respiratory No cough 08/15/2015 Respiratory No dyspnea 08/15/2015 Respiratory No pedal edema 08/15/2015 Gastrointestinal No abdominal pain 2015 Gastrointestinal No constipation 2015 Gastrointestinal No diarrhea 08/15/2015 Gastrointestinal No gastroesophageal reflux 08/15/2015 Gastrointestinal No nausea 08/15/2015 Gastrointestinal No vomiting 08/15/2015 Genitourinary/Nephrology No dysuria 08/14 Genitourinary/Nephrology No nocturia 06/2015 Genitourinary/Nephrology No urinary incontinence 08/15/2015 Musculoskeletal No stiffness 08/15/2015 Musculoskeletal No swelling 08/15/2015 Musculoskeletal No muscle weakness 2015 Musculoskeletal No myalgias 08/15/2015 Dermatologic No rash 08/15/2015 Dermatologic sores 08/15/2015 Dermatologic No scar 08/15/2015 Neurologic No alteration of consciousness 08/15/2015 Neurologic No dizziness 08/15/2015 Neurologic No headache 08/15/2015 Neurologic No neck pain 08/15/2015 Neurologic No syncope 08/15/2015 Psychiatric No anxiety 08/15/2015 Psychiatric No depression 08/15/2015 Constitutional No recent illness 2015 Constitutional No anorexia 08/03/2015 Constitutional No night sweats 2015 Constitutional No chills 08/03/2015 Constitutional No diaphoresis 08/03/2015 Constitutional No fatigue 08/03/2015 Constitutional No fever 08/03/2015 Constitutional No insomnia 08/03/2015 Constitutional No malaise 08/03/2015 Constitutional No weight loss 08/03/2015 Constitutional No weight gain 08/03/2015 Constitutional No obesity 08/03/2015 Dermatologic No rash 08/03/2015 Dermatologic laceration 08/03/2015 Dermatologic No sores 08/03/2015 Constitutional No recent illness 2014 Constitutional No chills 12/20/2014 Constitutional No fatigue 12/20/2014 Constitutional No fever 12/20/2014 Constitutional No insomnia 12/20/2014 Constitutional No malaise 12/20/2014 Eyes No blindness 12/20/2014 Eyes No vision change 12/20/2014 Ears/Nose/Throat/Neck No dental pain 11/2014 Ears/Nose/Throat/Neck No dizziness 2014 Ears/Nose/Throat/Neck No headache 2014 Ears/Nose/Throat/Neck No hearing loss 11/2014 Ears/Nose/Throat/Neck No nasal allergies 12/20/2014 Ears/Nose/Throat/Neck No sore throat 11/2014 Ears/Nose/Throat/Neck No postnasal drip 12/20/2014 Ears/Nose/Throat/Neck No sinus congestion 12/20/2014 Cardiovascular No chest pain/pressure 11/2014 Cardiovascular No dyspnea 12/20/2014 Cardiovascular No edema 12/20/2014 Cardiovascular No exercise intolerance Cardiovascular No fatigue 12/20/2014 Cardiovascular No near-syncope/dizziness 12/20/2014 Cardiovascular No palpitations 2014 Respiratory No chest congestion 2014 Respiratory No chest tightness 2014 Respiratory No cough 12/20/2014 Respiratory No dyspnea 12/20/2014 Respiratory No pedal edema 12/20/2014 Gastrointestinal No abdominal pain 2014 Gastrointestinal No constipation 2014 Gastrointestinal No diarrhea 12/20/2014 Gastrointestinal No gastroesophageal reflux 12/20/2014 Gastrointestinal No nausea 12/20/2014 Gastrointestinal No vomiting 12/20/2014 Musculoskeletal No stiffness 12/20/2014 Musculoskeletal No muscle weakness 2014 Musculoskeletal No myalgias 12/20/2014 Dermatologic No rash 12/20/2014 Dermatologic No sores 12/20/2014 Dermatologic No scar 12/20/2014 Neurologic No alteration of consciousness 12/20/2014 Neurologic No dizziness 12/20/2014 Neurologic No headache 12/20/2014 Neurologic No neck pain 12/20/2014 Neurologic No syncope 12/20/2014 Psychiatric No anxiety 12/20/2014 Psychiatric No depression 12/20/2014 Musculoskeletal joint complaint 2014 Constitutional No chills 08/30/2014 Constitutional No fatigue 08/30/2014 Constitutional No fever 08/30/2014 Constitutional No recent illness 2014 Ears/Nose/Throat/Neck No dizziness 2014 Ears/Nose/Throat/Neck No headache 2014 Cardiovascular No chest pain/pressure Cardiovascular No near-syncope/dizziness 08/30/2014 Cardiovascular No palpitations 2014 Respiratory No chest congestion 2014 Respiratory No cough 08/30/2014 Gastrointestinal No abdominal pain 2014 Gastrointestinal No constipation 2014 Gastrointestinal No diarrhea 08/30/2014 Gastrointestinal No nausea 08/30/2014 Gastrointestinal No vomiting 08/30/2014 Genitourinary/Nephrology No dysuria 08/30 Neurologic No alteration of consciousness 08/30/2014 Constitutional No insomnia 08/30/2014 Constitutional No malaise 08/30/2014 Eyes No blindness 08/30/2014 Eyes No vision change 08/30/2014 Ears/Nose/Throat/Neck No dental pain Ears/Nose/Throat/Neck dysphagia 2014 Ears/Nose/Throat/Neck No hearing loss Ears/Nose/Throat/Neck No nasal allergies 08/30/2014 Ears/Nose/Throat/Neck No sore throat Ears/Nose/Throat/Neck No postnasal drip 08/30/2014 Ears/Nose/Throat/Neck No sinus congestion 08/30/2014 Cardiovascular No dyspnea 08/30/2014 Cardiovascular No edema 08/30/2014 Cardiovascular No exercise intolerance Cardiovascular No fatigue 08/30/2014 Respiratory No chest tightness 2014 Respiratory No dyspnea 08/30/2014 Respiratory No pedal edema 08/30/2014 Gastrointestinal No gastroesophageal reflux 08/30/2014 Genitourinary/Nephrology No nocturia Genitourinary/Nephrology No urinary incontinence 08/30/2014 Musculoskeletal No stiffness 08/30/2014 Musculoskeletal No swelling 08/30/2014 Musculoskeletal No muscle weakness 2014 Musculoskeletal No myalgias 08/30/2014 Dermatologic No rash 08/30/2014 Dermatologic No sores 08/30/2014 Dermatologic No scar 08/30/2014 Neurologic No dizziness 08/30/2014 Neurologic No headache 08/30/2014 Neurologic No neck pain 08/30/2014 Neurologic No syncope 08/30/2014 Psychiatric No anxiety 08/30/2014 Psychiatric No depression 08/30/2014 Ears/Nose/Throat/Neck hoarseness 2014 Physical Exam Exam Name System Name Item Name Status Result Effective Dates Notes Full Exam - General 1994 Constitutional general appearance Overall: well developed 11/20/2016 None Full Exam - General 1994 Constitutional general appearance Overall: in no acute distress 11/20/2016 None Full Exam - General 1994 Constitutional general appearance Overall: well nourished 11/20/2016 None Full Exam - General 1994 Eyes conjunctiva /eyelids Overall: conjunctiva clear 11/20/2016 None Full Exam - General 1994 Eyes conjunctiva /eyelids Overall: cornea clear 11/20/2016 None Full Exam - General 1994 Eyes conjunctiva /eyelids Overall: eyelids normal 11/20/2016 None Full Exam - General 1994 Ears/Nose/Throat otoscopic exam Overall: external auditory canals clear 11/20/2016 None Full Exam - General 1994 Ears/Nose/Throat otoscopic exam Overall: tympanic membranes clear 11/20/2016 None Full Exam - General 1994 Ears/Nose/Throat lips/teeth/gingiva Overall: benign lips 11/20/2016 None Full Exam - General 1994 Ears/Nose/Throat lips/teeth/gingiva Overall: normal dentition 11/20/2016 None Full Exam - General 1994 Ears/Nose/Throat oral cavity/pharynx/larynx Overall: oral mucosa clear 11/20/2016 None Full Exam - General 1994 Ears/Nose/Throat oral cavity/pharynx/larynx Overall: oropharyngeal mucosa clear 11/20/2016 None Full Exam - General 1994 Ears/Nose/Throat oral cavity/pharynx/larynx Overall: no masses 11/20/2016 None Full Exam - General 1994 Respiratory auscultation Overall: breath sounds clear bilaterally 11/20/2016 None Full Exam - General 1994 Respiratory respiratory effort/rhythm Overall: no retractions 11/20/2016 None Full Exam - General 1994 Respiratory respiratory effort/rhythm Overall: normal rate 11/20/2016 None Full Exam - General 1994 Cardiovascular extremities Overall: no clubbing 11/20/2016 None Full Exam - General 1994 Cardiovascular auscultation of heart Overall: regular rate 11/20/2016 None Full Exam - General 1994 Cardiovascular auscultation of heart Overall: normal heart sounds 11/20/2016 None Full Exam - General 1994 Abdomen abdominal exam Overall: no tenderness 11/20/2016 None Full Exam - General 1994 Abdomen abdominal exam Overall: normal bowel sounds 11/20/2016 None Full Exam - General 1994 Musculoskeletal spine, ribs and pelvis Overall: good posture 11/20/2016 None Full Exam - General 1994 Musculoskeletal gait and station Overall: normal gait 11/20/2016 None Full Exam - General 1994 Musculoskeletal gait and station Overall: normal station 11/20/2016 None Full Exam - General 1994 Musculoskeletal head and neck Overall: head atraumatic 11/20/2016 None Full Exam - General 1994 Neurologic cranial nerves Overall: crainial nerves 2 - 12 grossly intact 11/20/2016 None Full Exam - General 1994 Psychiatric orientation/consciousness Overall: oriented to person, place and time 11/20/2016 None Full Exam - General 1994 Psychiatric mood and affect Mood: anxious 11/20/2016 None Full Exam - General 1994 Psychiatric appearance Overall: well-groomed, good eye contact 11/20/2016 None Full Exam - General 1994 Constitutional general appearance Development: well developed 05/22/2016 None Full Exam - General 1994 Constitutional general appearance Development: appears stated age 0405/22/2016 None Full Exam - General 1994 Constitutional general appearance Hygiene/Attention to Grooming: good hygiene 05/22/2016 None Full Exam - General 1994 Eyes conjunctiva /eyelids Overall: conjunctiva clear 05/22/2016 None Full Exam - General 1994 Eyes conjunctiva /eyelids Overall: cornea clear 05/22/2016 None Full Exam - General 1994 Eyes conjunctiva /eyelids Overall: eyelids normal 05/22/2016 None Full Exam - General 1994 Eyes pupils and irises Overall: pupils equal, round, reactive to light and accomodation 05/22/2016 None Full Exam - General 1994 Ears/Nose/Throat otoscopic exam Overall: external auditory canals clear 05/22/2016 None Full Exam - General 1994 Ears/Nose/Throat otoscopic exam Overall: tympanic membranes clear 05/22/2016 None Full Exam - General 1994 Ears/Nose/Throat lips/teeth/gingiva Overall: benign lips 05/22/2016 None Full Exam - General 1994 Ears/Nose/Throat lips/teeth/gingiva Overall: normal dentition 05/22/2016 None Full Exam - General 1994 Ears/Nose/Throat oral cavity/pharynx/larynx Overall: oral mucosa clear 05/22/2016 None Full Exam - General 1994 Ears/Nose/Throat oral cavity/pharynx/larynx Overall: oropharyngeal mucosa clear 05/22/2016 None Full Exam - General 1994 Ears/Nose/Throat oral cavity/pharynx/larynx Overall: hypopharynx benign 05/22/2016 None Full Exam - General 1994 Ears/Nose/Throat oral cavity/pharynx/larynx Overall: no masses 05/22/2016 None Full Exam - General 1994 Neck thyroid Size: enlarged right lobe 05/22/2016 None Full Exam - General 1994 Respiratory auscultation Overall: breath sounds clear bilaterally 05/22/2016 None Full Exam - General 1994 Respiratory respiratory effort/rhythm Overall: no retractions 05/22/2016 None Full Exam - General 1994 Respiratory respiratory effort/rhythm Overall: normal rate 05/22/2016 None Full Exam - General 1994 Cardiovascular extremities Overall: no clubbing 05/22/2016 None Full Exam - General 1994 Cardiovascular auscultation of heart Overall: regular rate 05/22/2016 None Full Exam - General 1994 Cardiovascular auscultation of heart Overall: normal heart sounds 05/22/2016 None Full Exam - General 1994 Abdomen abdominal exam Overall: no tenderness 05/22/2016 None Full Exam - General 1994 Abdomen abdominal exam Overall: normal bowel sounds 05/22/2016 None Full Exam - General 1994 Lymphatic neck nodes Overall: anterior cervical chain benign 05/22/2016 None Full Exam - General 1994 Lymphatic neck nodes Overall: posterior cervical chain benign 05/22/2016 None Full Exam - General 1994 Musculoskeletal spine, ribs and pelvis Overall: spine benign 05/22/2016 None Full Exam - General 1994 Musculoskeletal spine, ribs and pelvis Overall: sacroiliac joint benign 05/22/2016 None Full Exam - General 1994 Musculoskeletal spine, ribs and pelvis Overall: good posture 05/22/2016 None Full Exam - General 1994 Musculoskeletal head and neck Overall: head atraumatic 05/22/2016 None Full Exam - General 1994 Musculoskeletal head and neck Overall: cervical spine benign 05/22/2016 None Full Exam - General 1994 Integument inspection of skin Overall: few scattered moles, no gross abnormalities 05/22/2016 None Full Exam - General 1994 Neurologic deep tendon reflexes Overall: deep tendon reflexes intact 05/22/2016 None Full Exam - General 1994 Neurologic cranial nerves Overall: crainial nerves 2 - 12 grossly intact 05/22/2016 None Full Exam - General 1994 Psychiatric orientation/consciousness Overall: oriented to person, place and time 05/22/2016 None Full Exam - General 1994 Psychiatric mood and affect Overall: normal mood and affect 05/22/2016 None Full Exam - General 1994 Constitutional general appearance Overall: well developed 04/11/2016 None Full Exam - General 1994 Constitutional general appearance Overall: well nourished 04/11/2016 None Full Exam - General 1994 Constitutional general appearance Overall: in no acute distress 04/11/2016 None Full Exam - General 1994 Eyes conjunctiva /eyelids Overall: conjunctiva clear 04/11/2016 None Full Exam - General 1994 Eyes conjunctiva /eyelids Overall: eyelids normal 04/11/2016 None Full Exam - General 1994 Ears/Nose/Throat lips/teeth/gingiva Overall: benign lips 04/11/2016 None Full Exam - General 1994 Ears/Nose/Throat oral cavity/pharynx/larynx Overall: oral mucosa clear 04/11/2016 None Full Exam - General 1994 Ears/Nose/Throat otoscopic exam Overall: external auditory canals clear 04/11/2016 None Full Exam - General 1994 Ears/Nose/Throat otoscopic exam Overall: tympanic membranes clear 04/11/2016 None Full Exam - General 1994 Respiratory auscultation Overall: breath sounds clear bilaterally 04/11/2016 None Full Exam - General 1994 Respiratory respiratory effort/rhythm Overall: no retractions 04/11/2016 None Full Exam - General 1994 Respiratory respiratory effort/rhythm Overall: normal rate 04/11/2016 None Full Exam - General 1994 Cardiovascular auscultation of heart Overall: regular rate 04/11/2016 None Full Exam - General 1994 Cardiovascular auscultation of heart Overall: normal heart sounds 04/11/2016 None Full Exam - General 1994 Abdomen abdominal exam Overall: normal bowel sounds 04/11/2016 None Full Exam - General 1994 Abdomen abdominal exam Upper quadrant: tender to palpation 04/11/2016 None Full Exam - General 1994 Abdomen abdominal exam Upper quadrant: no guarding 04/11/2016 None Full Exam - General 1994 Abdomen abdominal exam Epigastric: tender to palpation 04/11/2016 None Full Exam - General 1994 Lymphatic neck nodes Overall: posterior cervical chain benign 04/11/2016 None Full Exam - General 1994 Lymphatic neck nodes Overall: anterior cervical chain benign 04/11/2016 None Full Exam - General 1994 Musculoskeletal head and neck Overall: head atraumatic 04/11/2016 None Full Exam - General 1994 Musculoskeletal head and neck Overall: cervical spine benign 04/11/2016 None Full Exam - General 1994 Neurologic cranial nerves Overall: crainial nerves 2 - 12 grossly intact 04/11/2016 None Full Exam - General 1994 Psychiatric orientation/consciousness Overall: oriented to person, place and time 04/11/2016 None Full Exam - General 1994 Psychiatric mood and affect Overall: normal mood and affect 04/11/2016 None Full Exam - General 1994 Psychiatric appearance Overall: well-groomed, good eye contact 04/11/2016 None Full Exam - General 1994 Abdomen abdominal exam Epigastric: dull pain 04/11/2016 None Full Exam - General 1994 Constitutional general appearance Overall: well developed 01/25/2016 None Full Exam - General 1994 Constitutional general appearance Overall: in no acute distress 01/25/2016 None Full Exam - General 1994 Constitutional general appearance Overall: well nourished 01/25/2016 None Full Exam - General 1994 Eyes conjunctiva /eyelids Overall: conjunctiva clear 01/25/2016 None Full Exam - General 1994 Eyes conjunctiva /eyelids Overall: cornea clear 01/25/2016 None Full Exam - General 1994 Eyes conjunctiva /eyelids Overall: eyelids normal 01/25/2016 None Full Exam - General 1994 Ears/Nose/Throat otoscopic exam Overall: external auditory canals clear 01/25/2016 None Full Exam - General 1994 Ears/Nose/Throat otoscopic exam Overall: tympanic membranes clear 01/25/2016 None Full Exam - General 1994 Ears/Nose/Throat lips/teeth/gingiva Overall: benign lips 01/25/2016 None Full Exam - General 1994 Ears/Nose/Throat lips/teeth/gingiva Overall: normal dentition 01/25/2016 None Full Exam - General 1994 Ears/Nose/Throat oral cavity/pharynx/larynx Overall: oral mucosa clear 01/25/2016 None Full Exam - General 1994 Ears/Nose/Throat oral cavity/pharynx/larynx Overall: oropharyngeal mucosa clear 01/25/2016 None Full Exam - General 1994 Ears/Nose/Throat oral cavity/pharynx/larynx Overall: no masses 01/25/2016 None Full Exam - General 1994 Respiratory auscultation Overall: breath sounds clear bilaterally 01/25/2016 None Full Exam - General 1994 Respiratory respiratory effort/rhythm Overall: no retractions 01/25/2016 None Full Exam - General 1994 Respiratory respiratory effort/rhythm Overall: normal rate 01/25/2016 None Full Exam - General 1994 Cardiovascular extremities Overall: no clubbing 01/25/2016 None Full Exam - General 1994 Cardiovascular auscultation of heart Overall: regular rate 01/25/2016 None Full Exam - General 1994 Cardiovascular auscultation of heart Overall: normal heart sounds 01/25/2016 None Full Exam - General 1994 Abdomen abdominal exam Overall: no tenderness 01/25/2016 None Full Exam - General 1994 Abdomen abdominal exam Overall: normal bowel sounds 01/25/2016 None Full Exam - General 1994 Musculoskeletal spine, ribs and pelvis Overall: good posture 01/25/2016 None Full Exam - General 1994 Musculoskeletal gait and station Overall: normal gait 01/25/2016 None Full Exam - General 1994 Musculoskeletal gait and station Overall: normal station 01/25/2016 None Full Exam - General 1994 Musculoskeletal head and neck Overall: head atraumatic 01/25/2016 None Full Exam - General 1994 Neurologic cranial nerves Overall: crainial nerves 2 - 12 grossly intact 01/25/2016 None Full Exam - General 1994 Psychiatric orientation/consciousness Overall: oriented to person, place and time 01/25/2016 None Full Exam - General 1994 Psychiatric mood and affect Mood: anxious 01/25/2016 None Full Exam - General 1994 Psychiatric appearance Overall: well-groomed, good eye contact 01/25/2016 None Full Exam - General 1994 Constitutional general appearance Overall: well developed 12/28/2015 None Full Exam - General 1994 Constitutional general appearance Overall: in no acute distress 12/28/2015 None Full Exam - General 1994 Constitutional general appearance Overall: well nourished 12/28/2015 None Full Exam - General 1994 Eyes conjunctiva /eyelids Overall: conjunctiva clear 12/28/2015 None Full Exam - General 1994 Eyes conjunctiva /eyelids Overall: cornea clear 12/28/2015 None Full Exam - General 1994 Eyes conjunctiva /eyelids Overall: eyelids normal 12/28/2015 None Full Exam - General 1994 Ears/Nose/Throat otoscopic exam Overall: external auditory canals clear 12/28/2015 None Full Exam - General 1994 Ears/Nose/Throat otoscopic exam Overall: tympanic membranes clear 12/28/2015 None Full Exam - General 1994 Ears/Nose/Throat lips/teeth/gingiva Overall: benign lips 12/28/2015 None Full Exam - General 1994 Ears/Nose/Throat lips/teeth/gingiva Overall: normal dentition 12/28/2015 None Full Exam - General 1994 Ears/Nose/Throat oral cavity/pharynx/larynx Overall: oral mucosa clear 12/28/2015 None Full Exam - General 1994 Ears/Nose/Throat oral cavity/pharynx/larynx Overall: oropharyngeal mucosa clear 12/28/2015 None Full Exam - General 1994 Ears/Nose/Throat oral cavity/pharynx/larynx Overall: no masses 12/28/2015 None Full Exam - General 1994 Neck thyroid Size: enlarged right lobe 12/28/2015 None Full Exam - General 1994 Respiratory auscultation Overall: breath sounds clear bilaterally 12/28/2015 None Full Exam - General 1994 Respiratory respiratory effort/rhythm Overall: no retractions 12/28/2015 None Full Exam - General 1994 Respiratory respiratory effort/rhythm Overall: normal rate 12/28/2015 None Full Exam - General 1994 Cardiovascular extremities Overall: no clubbing 12/28/2015 None Full Exam - General 1994 Cardiovascular auscultation of heart Overall: regular rate 12/28/2015 None Full Exam - General 1994 Cardiovascular auscultation of heart Overall: normal heart sounds 12/28/2015 None Full Exam - General 1994 Musculoskeletal spine, ribs and pelvis Overall: good posture 12/28/2015 None Full Exam - General 1994 Musculoskeletal gait and station Overall: normal gait 12/28/2015 None Full Exam - General 1994 Musculoskeletal gait and station Overall: normal station 12/28/2015 None Full Exam - General 1994 Musculoskeletal head and neck Overall: head atraumatic 12/28/2015 None Full Exam - General 1994 Neurologic cranial nerves Overall: crainial nerves 2 - 12 grossly intact 12/28/2015 None Full Exam - General 1994 Psychiatric orientation/consciousness Overall: oriented to person, place and time 12/28/2015 None Full Exam - General 1994 Psychiatric mood and affect Mood: anxious 12/28/2015 None Full Exam - General 1994 Psychiatric appearance Overall: well-groomed, good eye contact 12/28/2015 None Full Exam - General 1994 Abdomen abdominal exam Overall: no tenderness 12/28/2015 None Full Exam - General 1994 Abdomen abdominal exam Overall: normal bowel sounds 12/28/2015 None Full Exam - General 1994 Eyes conjunctiva /eyelids Overall: conjunctiva clear 11/30/2015 None Full Exam - General 1994 Eyes conjunctiva /eyelids Overall: cornea clear 11/30/2015 None Full Exam - General 1994 Eyes conjunctiva /eyelids Overall: eyelids normal 11/30/2015 None Full Exam - General 1994 Ears/Nose/Throat otoscopic exam Overall: external auditory canals clear 11/30/2015 None Full Exam - General 1994 Ears/Nose/Throat otoscopic exam Overall: tympanic membranes clear 11/30/2015 None Full Exam - General 1994 Ears/Nose/Throat lips/teeth/gingiva Overall: benign lips 11/30/2015 None Full Exam - General 1994 Ears/Nose/Throat lips/teeth/gingiva Overall: normal dentition 11/30/2015 None Full Exam - General 1994 Ears/Nose/Throat oral cavity/pharynx/larynx Overall: oral mucosa clear 11/30/2015 None Full Exam - General 1994 Ears/Nose/Throat oral cavity/pharynx/larynx Overall: oropharyngeal mucosa clear 11/30/2015 None Full Exam - General 1994 Ears/Nose/Throat oral cavity/pharynx/larynx Overall: no masses 11/30/2015 None Full Exam - General 1994 Neck thyroid Size: enlarged right lobe 11/30/2015 None Full Exam - General 1994 Respiratory auscultation Overall: breath sounds clear bilaterally 11/30/2015 None Full Exam - General 1994 Respiratory respiratory effort/rhythm Overall: no retractions 11/30/2015 None Full Exam - General 1994 Respiratory respiratory effort/rhythm Overall: normal rate 11/30/2015 None Full Exam - General 1994 Cardiovascular extremities Overall: no clubbing 11/30/2015 None Full Exam - General 1994 Cardiovascular auscultation of heart Overall: regular rate 11/30/2015 None Full Exam - General 1994 Cardiovascular auscultation of heart Overall: normal heart sounds 11/30/2015 None Full Exam - General 1994 Musculoskeletal spine, ribs and pelvis Overall: good posture 11/30/2015 None Full Exam - General 1994 Musculoskeletal head and neck Overall: head atraumatic 11/30/2015 None Full Exam - General 1994 Neurologic cranial nerves Overall: crainial nerves 2 - 12 grossly intact 11/30/2015 None Full Exam - General 1994 Psychiatric orientation/consciousness Overall: oriented to person, place and time 11/30/2015 None Full Exam - General 1994 Constitutional general appearance Overall: well developed 11/30/2015 None Full Exam - General 1994 Constitutional general appearance Overall: in no acute distress 11/30/2015 None Full Exam - General 1994 Constitutional general appearance Overall: well nourished 11/30/2015 None Full Exam - General 1994 Musculoskeletal gait and station Overall: normal gait 11/30/2015 None Full Exam - General 1994 Musculoskeletal gait and station Overall: normal station 11/30/2015 None Full Exam - General 1994 Psychiatric mood and affect Mood: anxious 11/30/2015 None Full Exam - General 1994 Psychiatric appearance Overall: well-groomed, good eye contact 11/30/2015 None Full Exam - General 1994 Constitutional general appearance Development: well developed 08/15/2015 None Full Exam - General 1994 Constitutional general appearance Development: appears stated age 0708/15/2015 None Full Exam - General 1994 Constitutional general appearance Hygiene/Attention to Grooming: good hygiene 08/15/2015 None Full Exam - General 1994 Eyes conjunctiva /eyelids Overall: conjunctiva clear 08/15/2015 None Full Exam - General 1994 Eyes conjunctiva /eyelids Overall: cornea clear 08/15/2015 None Full Exam - General 1994 Eyes conjunctiva /eyelids Overall: eyelids normal 08/15/2015 None Full Exam - General 1994 Eyes pupils and irises Overall: pupils equal, round, reactive to light and accomodation 08/15/2015 None Full Exam - General 1994 Ears/Nose/Throat otoscopic exam Overall: external auditory canals clear 08/15/2015 None Full Exam - General 1994 Ears/Nose/Throat otoscopic exam Overall: tympanic membranes clear 08/15/2015 None Full Exam - General 1994 Ears/Nose/Throat lips/teeth/gingiva Overall: benign lips 08/15/2015 None Full Exam - General 1994 Ears/Nose/Throat lips/teeth/gingiva Overall: normal dentition 08/15/2015 None Full Exam - General 1994 Ears/Nose/Throat oral cavity/pharynx/larynx Overall: oral mucosa clear 08/15/2015 None Full Exam - General 1994 Ears/Nose/Throat oral cavity/pharynx/larynx Overall: oropharyngeal mucosa clear 08/15/2015 None Full Exam - General 1994 Ears/Nose/Throat oral cavity/pharynx/larynx Overall: hypopharynx benign 08/15/2015 None Full Exam - General 1994 Ears/Nose/Throat oral cavity/pharynx/larynx Overall: no masses 08/15/2015 None Full Exam - General 1994 Neck thyroid Size: enlarged right lobe 08/15/2015 None Full Exam - General 1994 Respiratory auscultation Overall: breath sounds clear bilaterally 08/15/2015 None Full Exam - General 1994 Respiratory respiratory effort/rhythm Overall: no retractions 08/15/2015 None Full Exam - General 1994 Respiratory respiratory effort/rhythm Overall: normal rate 08/15/2015 None Full Exam - General 1994 Cardiovascular extremities Overall: no clubbing 08/15/2015 None Full Exam - General 1994 Cardiovascular auscultation of heart Overall: regular rate 08/15/2015 None Full Exam - General 1994 Cardiovascular auscultation of heart Overall: normal heart sounds 08/15/2015 None Full Exam - General 1994 Abdomen abdominal exam Overall: no tenderness 08/15/2015 None Full Exam - General 1994 Abdomen abdominal exam Overall: normal bowel sounds 08/15/2015 None Full Exam - General 1994 Lymphatic neck nodes Overall: anterior cervical chain benign 08/15/2015 None Full Exam - General 1994 Lymphatic neck nodes Overall: posterior cervical chain benign 08/15/2015 None Full Exam - General 1994 Musculoskeletal spine, ribs and pelvis Overall: spine benign 08/15/2015 None Full Exam - General 1994 Musculoskeletal spine, ribs and pelvis Overall: sacroiliac joint benign 08/15/2015 None Full Exam - General 1994 Musculoskeletal spine, ribs and pelvis Overall: good posture 08/15/2015 None Full Exam - General 1994 Musculoskeletal head and neck Overall: head atraumatic 08/15/2015 None Full Exam - General 1994 Musculoskeletal head and neck Overall: cervical spine benign 08/15/2015 None Full Exam - General 1994 Neurologic deep tendon reflexes Overall: deep tendon reflexes intact 08/15/2015 None Full Exam - General 1994 Neurologic cranial nerves Overall: crainial nerves 2 - 12 grossly intact 08/15/2015 None Full Exam - General 1994 Psychiatric orientation/consciousness Overall: oriented to person, place and time 08/15/2015 None Full Exam - General 1994 Psychiatric mood and affect Overall: normal mood and affect 08/15/2015 None Full Exam - General 1994 Integument inspection of skin Location: left hand 08/15/2015 index finger with laceration - not healing well - cleansed then closed with steri strips Full Exam - General 1994 Constitutional general appearance Overall: well nourished 08/03/2015 None Full Exam - General 1994 Constitutional general appearance Overall: well developed 08/03/2015 None Full Exam - General 1994 Constitutional general appearance Overall: in no acute distress 08/03/2015 None Full Exam - General 1994 Integument inspection of skin Location: left hand 08/03/2015 index finger Full Exam - General 1994 Integument inspection of skin Rash/Lesions: laceration 08/03/2015 cut on knife, glued closed Full Exam - General 1994 Integument inspection of skin Pigmentation: ecchymosis 08/03/2015 None Full Exam - General 1994 Psychiatric orientation/consciousness Overall: oriented to person, place and time 08/03/2015 None Full Exam - General 1994 Psychiatric mood and affect Overall: normal mood and affect 08/03/2015 None Full Exam - General 1994 Psychiatric appearance Overall: well-groomed, good eye contact 08/03/2015 None Full Exam - General 1994 Constitutional general appearance Development: well developed 12/20/2014 None Full Exam - General 1994 Constitutional general appearance Development: appears stated age 1112/20/2014 None Full Exam - General 1994 Constitutional general appearance Hygiene/Attention to Grooming: good hygiene 12/20/2014 None Full Exam - General 1994 Eyes conjunctiva /eyelids Overall: conjunctiva clear 12/20/2014 None Full Exam - General 1994 Eyes conjunctiva /eyelids Overall: cornea clear 12/20/2014 None Full Exam - General 1994 Eyes conjunctiva /eyelids Overall: eyelids normal 12/20/2014 None Full Exam - General 1994 Eyes pupils and irises Overall: pupils equal, round, reactive to light and accomodation 12/20/2014 None Full Exam - General 1994 Ears/Nose/Throat otoscopic exam Overall: external auditory canals clear 12/20/2014 None Full Exam - General 1994 Ears/Nose/Throat otoscopic exam Overall: tympanic membranes clear 12/20/2014 None Full Exam - General 1994 Ears/Nose/Throat oral cavity/pharynx/larynx Overall: oral mucosa clear 12/20/2014 None Full Exam - General 1994 Ears/Nose/Throat oral cavity/pharynx/larynx Overall: oropharyngeal mucosa clear 12/20/2014 None Full Exam - General 1994 Ears/Nose/Throat oral cavity/pharynx/larynx Overall: hypopharynx benign 12/20/2014 None Full Exam - General 1994 Ears/Nose/Throat oral cavity/pharynx/larynx Overall: no masses 12/20/2014 None Full Exam - General 1994 Neck thyroid Size: enlarged right lobe 12/20/2014 None Full Exam - General 1994 Respiratory auscultation Overall: breath sounds clear bilaterally 12/20/2014 None Full Exam - General 1994 Respiratory respiratory effort/rhythm Overall: no retractions 12/20/2014 None Full Exam - General 1994 Respiratory respiratory effort/rhythm Overall: normal rate 12/20/2014 None Full Exam - General 1994 Cardiovascular extremities Overall: no clubbing 12/20/2014 None Full Exam - General 1994 Cardiovascular auscultation of heart Overall: regular rate 12/20/2014 None Full Exam - General 1994 Cardiovascular auscultation of heart Overall: normal heart sounds 12/20/2014 None Full Exam - General 1994 Abdomen abdominal exam Overall: no tenderness 12/20/2014 None Full Exam - General 1994 Abdomen abdominal exam Overall: normal bowel sounds 12/20/2014 None Full Exam - General 1994 Lymphatic neck nodes Overall: anterior cervical chain benign 12/20/2014 None Full Exam - General 1994 Lymphatic neck nodes Overall: posterior cervical chain benign 12/20/2014 None Full Exam - General 1994 Musculoskeletal spine, ribs and pelvis Overall: good posture 12/20/2014 None Full Exam - General 1994 Integument inspection of skin Overall: few scattered moles, no gross abnormalities 12/20/2014 None Full Exam - General 1994 Neurologic cranial nerves Overall: crainial nerves 2 - 12 grossly intact 12/20/2014 None Full Exam - General 1994 Psychiatric orientation/consciousness Overall: oriented to person, place and time 12/20/2014 None Full Exam - General 1994 Psychiatric mood and affect Overall: normal mood and affect 12/20/2014 None Full Exam - General 1994 Musculoskeletal gait and station Overall: normal gait 12/20/2014 None Full Exam - General 1994 Musculoskeletal gait and station Overall: normal station 12/20/2014 None Full Exam - General 1994 Musculoskeletal lower extremity Inspection - lower leg: swelling 12/20/2014 pt has a mass on the lateral side of the anterior tibia, pt states it has been there for a year Full Exam - General 1994 Musculoskeletal lower extremity Inspection - lower leg: normal appearance 12/20/2014 None Full Exam - General 1994 Musculoskeletal spine, ribs and pelvis Sacroiliac joints: nontender 12/20/2014 Tender coccyx Full Exam - General 1994 Musculoskeletal spine, ribs and pelvis Spine: full flexion 12/20/2014 None Full Exam - General 1994 Musculoskeletal spine, ribs and pelvis Spine: full extension 12/20/2014 None Full Exam - General 1994 Musculoskeletal spine, ribs and pelvis Spine: full lateral bending 12/20/2014 None Full Exam - General 1994 Musculoskeletal spine, ribs and pelvis Spine: full rotation 12/20/2014 None Full Exam - General 1994 Constitutional general appearance Development: well developed 08/30/2014 None Full Exam - General 1994 Constitutional general appearance Development: appears stated age 0708/30/2014 None Full Exam - General 1994 Constitutional general appearance Hygiene/Attention to Grooming: good hygiene 08/30/2014 None Full Exam - General 1994 Eyes conjunctiva /eyelids Overall: conjunctiva clear 08/30/2014 None Full Exam - General 1994 Eyes conjunctiva /eyelids Overall: cornea clear 08/30/2014 None Full Exam - General 1994 Eyes conjunctiva /eyelids Overall: eyelids normal 08/30/2014 None Full Exam - General 1994 Eyes pupils and irises Overall: pupils equal, round, reactive to light and accomodation 08/30/2014 None Full Exam - General 1994 Ears/Nose/Throat otoscopic exam Overall: external auditory canals clear 08/30/2014 None Full Exam - General 1994 Ears/Nose/Throat otoscopic exam Overall: tympanic membranes clear 08/30/2014 None Full Exam - General 1994 Ears/Nose/Throat lips/teeth/gingiva Overall: benign lips 08/30/2014 None Full Exam - General 1994 Ears/Nose/Throat lips/teeth/gingiva Overall: normal dentition 08/30/2014 None Full Exam - General 1994 Ears/Nose/Throat oral cavity/pharynx/larynx Overall: oral mucosa clear 08/30/2014 None Full Exam - General 1994 Ears/Nose/Throat oral cavity/pharynx/larynx Overall: oropharyngeal mucosa clear 08/30/2014 None Full Exam - General 1994 Ears/Nose/Throat oral cavity/pharynx/larynx Overall: hypopharynx benign 08/30/2014 None Full Exam - General 1994 Ears/Nose/Throat oral cavity/pharynx/larynx Overall: no masses 08/30/2014 None Full Exam - General 1994 Respiratory auscultation Overall: breath sounds clear bilaterally 08/30/2014 None Full Exam - General 1994 Respiratory respiratory effort/rhythm Overall: no retractions 08/30/2014 None Full Exam - General 1994 Respiratory respiratory effort/rhythm Overall: normal rate 08/30/2014 None Full Exam - General 1994 Cardiovascular extremities Overall: no clubbing 08/30/2014 None Full Exam - General 1994 Cardiovascular auscultation of heart Overall: regular rate 08/30/2014 None Full Exam - General 1994 Cardiovascular auscultation of heart Overall: normal heart sounds 08/30/2014 None Full Exam - General 1994 Abdomen abdominal exam Overall: no tenderness 08/30/2014 None Full Exam - General 1994 Abdomen abdominal exam Overall: normal bowel sounds 08/30/2014 None Full Exam - General 1994 Lymphatic neck nodes Overall: anterior cervical chain benign 08/30/2014 None Full Exam - General 1994 Lymphatic neck nodes Overall: posterior cervical chain benign 08/30/2014 None Full Exam - General 1994 Musculoskeletal spine, ribs and pelvis Overall: spine benign 08/30/2014 None Full Exam - General 1994 Musculoskeletal spine, ribs and pelvis Overall: sacroiliac joint benign 08/30/2014 None Full Exam - General 1994 Musculoskeletal spine, ribs and pelvis Overall: good posture 08/30/2014 None Full Exam - General 1994 Musculoskeletal head and neck Overall: head atraumatic 08/30/2014 None Full Exam - General 1994 Musculoskeletal head and neck Overall: cervical spine benign 08/30/2014 None Full Exam - General 1994 Integument inspection of skin Overall: few scattered moles, no gross abnormalities 08/30/2014 None Full Exam - General 1994 Neurologic deep tendon reflexes Overall: deep tendon reflexes intact 08/30/2014 None Full Exam - General 1994 Neurologic cranial nerves Overall: crainial nerves 2 - 12 grossly intact 08/30/2014 None Full Exam - General 1994 Psychiatric orientation/consciousness Overall: oriented to person, place and time 08/30/2014 None Full Exam - General 1994 Psychiatric mood and affect Overall: normal mood and affect 08/30/2014 None Full Exam - General 1994 Neck thyroid Size: enlarged right lobe 08/30/2014 None Procedures No Procedures data Vital Signs Date Vital 11/20/2016 Blood Pressure 1: 130/76 Code : 8480-6 Blood Pressure 1: 144/84 Code: 8480-6 BMI: 33.8 Code: 60416-0 Heart Rate 1: 87 bpm Height: 5'5" SpO2: 98% Weight: 203 lbs 05/22/2016 Blood Pressure 1: 132/86 Code : 8480-6 BMI: 32.9 Code : 39714-9 Heart Rate 1 : 74 bpm Height: 5'5" SpO2: 96% Weight: 198 lbs 04/11/2016 Blood Pressure 1: 186/120 Code: 8480-6 Blood Pressure 1: 138/74 Code: 8480-6 BMI: 32.9 Code: 09043-6 Heart Rate 1: 76 bpm Height: 5'5" SpO2: 98% Weight: 198 lbs 01/25/2016 Blood Pressure 1: 130/78 Code : 8480-6 BMI: 32.3 Code : 65516-1 Heart Rate 1 : 79 bpm Height: 5'5" SpO2: 97% Weight: 194 lbs 12/28/2015 Blood Pressure 1: 130/82 Code : 8480-6 BMI: 32.9 Code : 11292-7 Heart Rate 1 : 76 bpm Height: 5'5" SpO2: 97% Weight: 198 lbs 11/30/2015 Blood Pressure 1: 130/90 Code : 8480-6 BMI: 32.3 Code : 33596-0 Heart Rate 1 : 79 bpm Height: 5'5" SpO2: 98% Weight: 194 lbs 08/15/2015 Blood Pressure 1: 134/84 Code : 8480-6 BMI: 32.4 Code : 61947-9 Heart Rate 1 : 68 bpm Height: 5'5" SpO2: 98% Weight: 195 lbs 08/03/2015 Blood Pressure 1: 126/80 Code : 8480-6 BMI: 32.0 Code : 07589-7 Heart Rate 1 : 82 bpm Height: 5'5" SpO2: 97% Weight: 192 lbs 12/20/2014 Blood Pressure 1: 140/80 Code : 8480-6 BMI: 31.5 Code : 80869-8 Heart Rate 1 : 78 bpm Height: 5'5" SpO2: 98% Weight: 189 lbs 08/30/2014 Blood Pressure 1: 132/86 Code : 8480-6 BMI: 30.5 Code : 74228-9 Heart Rate 1 : 71 bpm Height: 5'5" SpO2: 97% Weight: 183 lbs Functional Status No Functional Status data History of Present Illness Symptom Name Status Result Effective Date Notes hypothyroid Onset and Resolution ongoing 11/20/2016 None hypothyroid Alleviating Factors medication 11/20/2016 None hypertension Onset and Resolution ongoing 11/20/2016 None hypertension Onset of Symptom during adulthood 11/20/2016 None hypertension Blood Pressure Values patient checking blood pressure at home - did not bring in readings 11/20/2016 None hypertension Alleviating Factors medication 11/20/2016 None hypertension Pertinent Findings dizziness 11/20/2016 "sometimes" hypertension Pertinent Findings dyspnea 11/20/2016 occasional--usually after she eats when it occurs hypertension Pertinent Findings edema 11/20/2016 -mildly headache Quality intermittent 11/20/2016 None headache Triggers no known associated factors 11/20/2016 None headache Alleviating Factors medication 11/20/2016 None headache Alleviating Factors quiet/ silence 11/20/2016 None headache Alleviating Factors rest 11/20/2016 None hypertension Quality primary hypertension 11/20/2016 None arrhythmia Quality tachycardia 11/20/2016 None arrhythmia Quality intermittent 11/20/2016 None arrhythmia Quality acute 11/20/2016 None arrhythmia Triggers no known associated factors 11/20/2016 None arrhythmia Pertinent Findings lightheadedness 11/20/2016 "sometimes" knee pain Location on the right 11/20/2016 None knee pain Quality giving way 11/20/2016 None knee pain Quality worsening 11/20/2016 None knee pain Quality chronic 11/20/2016 None knee pain Onset and Resolution gradual in onset 11/20/2016 None knee pain Frequency of Episodes increasing 11/20/2016 None knee pain Limitation on Activities moderately limits activities 11/20/2016 None knee pain Pertinent Findings sensation of buckling 11/20/2016 None knee pain Pertinent Findings instability 11/20/2016 None gastroesophageal reflux Quality heartburn 11/20/2016 None gastroesophageal reflux Quality intermittent 11/20/2016 None gastroesophageal reflux Onset and Resolution ongoing 11/20/2016 None gastroesophageal reflux Exacerbating Factors eating 11/20/2016 None hypertension Onset and Resolution ongoing 05/22/2016 None hypertension Onset of Symptom during adulthood 05/22/2016 None hypertension Blood Pressure Values patient checking blood pressure at home - did not bring in readings 05/22/2016 None hypertension Alleviating Factors medication 05/22/2016 None hypertension Pertinent Findings dizziness 05/22/2016 lightheaded occasionally hypertension Pertinent Findings Denies palpitations 05/22/2016 None headache Quality intermittent 05/22/2016 None headache Quality acute 05/22/2016 None hypothyroid Onset and Resolution ongoing 05/22/2016 None hypothyroid Alleviating Factors medication 05/22/2016 None hypertension Pertinent Findings dyspnea 05/22/2016 occasional--usually after she eats when it occurs hypertension Pertinent Findings edema 05/22/2016 -mildly headache Limitation on Activities moderately limits activities 05/22/2016 None headache Alleviating Factors rest 05/22/2016 None headache Alleviating Factors quiet/ silence 05/22/2016 None headache Alleviating Factors medication 05/22/2016 None headache Triggers no known associated factors 05/22/2016 None headache Frequency of Episodes daily 05/22/2016 None abdominal pain Location in the epigastric area 04/11/2016 None abdominal pain Quality constant 04/11/2016 None abdominal pain Quality aching 04/11/2016 None abdominal pain Onset and Resolution sudden in onset 04/11/2016 None abdominal pain Onset of Symptom 3 weeks ago 04/11/2016 None chest pain/pressure Quality acute 01/25/2016 None chest pain/pressure Quality intermittent 01/25/2016 None chest pain/pressure Onset and Resolution ongoing 01/25/2016 None chest pain/pressure Triggers no known associated factors 01/25/2016 None anxiety Triggers stress 01/25/2016 None hypertension Onset and Resolution ongoing 01/25/2016 None hypertension Onset of Symptom during adulthood 01/25/2016 None hypertension Blood Pressure Values patient checking blood pressure at home - did not bring in readings 01/25/2016 None hypertension Alleviating Factors medication 01/25/2016 None hypertension Pertinent Findings Denies anxiety 01/25/2016 -improved hypertension Pertinent Findings dizziness 01/25/2016 lightheaded occasionally hypertension Pertinent Findings palpitations 01/25/2016 -improved anxiety Quality improving 01/25/2016 None chest pain/pressure Location in the substernal area 01/25/2016 None chest pain/pressure Location in the epigastric area 01/25/2016 None chest pain/pressure Onset of Symptom 1 weeks ago 01/25/2016 None chest pain/pressure Exacerbating Factors leaning forward 01/25/2016 None chest pain/pressure Exacerbating Factors cold exposure 01/25/2016 None anxiety Onset and Resolution resolved 01/25/2016 None chest pain/pressure Quality intermittent 12/28/2015 None chest pain/pressure Triggers no known associated factors 12/28/2015 None chest pain/pressure Alleviating Factors rest 12/28/2015 None hypertension Onset and Resolution ongoing 12/28/2015 None hypertension Onset of Symptom during adulthood 12/28/2015 None hypertension Blood Pressure Values patient checking blood pressure at home - did not bring in readings 12/28/2015 None hypertension Alleviating Factors medication 12/28/2015 None hypertension Pertinent Findings anxiety 12/28/2015 None hypertension Pertinent Findings palpitations 12/28/2015 None hypertension Pertinent Findings dizziness 12/28/2015 lightheaded occasionally anxiety Quality intermittent 12/28/2015 None anxiety Triggers stress 12/28/2015 None anxiety Alleviating Factors medication 12/28/2015 None chest pain/pressure Quality acute 12/28/2015 None chest pain/pressure Onset of Symptom 1+ months ago 12/28/2015 None chest pain/pressure Onset and Resolution ongoing 12/28/2015 None chest pain/pressure Exacerbating Factors deep breathing 12/28/2015 None chest pain/pressure Exacerbating Factors exertion 12/28/2015 None chest pain/pressure Location stabbing 11/30/2015 None chest pain/pressure Quality aching 11/30/2015 None chest pain/pressure Quality intermittent 11/30/2015 None chest pain/pressure Quality sharp 11/30/2015 None chest pain/pressure Quality stabbing 11/30/2015 None chest pain/pressure Onset of Symptom 1 months ago 11/30/2015 None chest pain/pressure Scale of 1(mild) to 10(severe) 4 11/30/2015 None chest pain/pressure Triggers no known associated factors 11/30/2015 None chest pain/pressure Alleviating Factors rest 11/30/2015 None hypothyroid Location at the level of the thyroid 08/15/2015 None hypothyroid Quality chronic 08/15/2015 None hypothyroid Onset and Resolution ongoing 08/15/2015 None hypothyroid Severity mild with subclinical signs 08/15/2015 None laceration of the finger Limitation on Activities moderately limits activities 08/03/2015 wearing a metal brace laceration of the finger Location on the left 08/03/2015 None laceration of the finger Mechanism of injury blunt trauma 08/03/2015 knife in kitchen drawer laceration of the finger Onset of Symptom 1 days ago 08/03/2015 None laceration of the finger Pertinent Findings Denies fever 08/03/2015 None laceration of the finger Pertinent Findings swelling 08/03/2015 None laceration of the finger Pertinent Findings Denies numbness 08/03/2015 None laceration of the finger Pertinent Findings pain with movement 08/03/2015 None blood pressure followup Quality chronic 12/20/2014 None blood pressure followup Onset and Resolution ongoing 12/20/2014 None blood pressure followup Onset of Symptom during adulthood 12/20/2014 None blood pressure followup Blood Pressure Values not checking blood pressure at home 12/20/2014 None blood pressure followup Blood Pressure Values pt checking blood pressure - see scanned document 12/20 None blood pressure followup Frequency of Episodes unchanged 12/20/2014 None blood pressure followup Triggers stress 12/20/2014 None blood pressure followup Alleviating Factors diet changes 12/20/2014 None blood pressure followup Alleviating Factors exercise 12/20/2014 None blood pressure followup Alleviating Factors medication 12/20/2014 None hypothyroid Onset and Resolution ongoing 12/20/2014 None hypothyroid Quality chronic 12/20/2014 None Hospital Follow Up _ cardiac disease 08/30/2014 pain in chest sent her to the er Hospital Follow Up Onset and Resolution ongoing 08/30/2014 None blood pressure followup Alleviating Factors diet changes 08/30/2014 None blood pressure followup Alleviating Factors exercise 08/30/2014 None blood pressure followup Alleviating Factors medication 08/30/2014 None blood pressure followup Blood Pressure Values not checking blood pressure at home 08/30/2014 None blood pressure followup Blood Pressure Values pt checking blood pressure - see scanned document 08/30 None blood pressure followup Frequency of Episodes unchanged 08/30/2014 None blood pressure followup Onset and Resolution ongoing 08/30/2014 None blood pressure followup Onset of Symptom during adulthood 08/30/2014 None blood pressure followup Quality chronic 08/30/2014 None blood pressure followup Triggers stress 08/30/2014 None Advance Directives No Advance Directive data Encounters Encounter Performer Location Codes Date ([id number]) [id number] EST. PATIENT, LEVEL IV Diagnosis: Essential (primary) hypertension[ICD10: I10] Diagnosis: Atrophy of thyroid (acquired)[ICD10: E03.4] Diagnosis: Gastro-esophageal reflux disease without esophagitis[ICD10: K21.9] Diagnosis: Pain in left knee[ICD10: M25.562] Diagnosis: Pain in right knee[ICD10: M25.561] Luz Thacker MD, [facility] CPT-4: 66629 11/20/2016 [id number]) [id number] EST. PATIENT, LEVEL IV Diagnosis: Essential (primary) hypertension[ICD10: I10] Diagnosis: Headache[ICD10: R51] Diagnosis: Atrophy of thyroid (acquired)[ICD10: E03.4] Luz Thacker MD, [facility] CPT-4: 18698 05/22/2016 [id number] EST. PATIENT, LEVEL III Diagnosis: Gastro-esophageal reflux disease without esophagitis[ICD10: K21.9] Diagnosis: Generalized abdominal pain[ICD10: R10.84] Diagnosis: Other specified hypothyroidism[ICD10: E03.8] [facility] CPT-4: 43517 04/11/2016 ([id number]) [id number] EST. PATIENT, LEVEL IV Diagnosis: Essential (primary) hypertension[ICD10: I10] Diagnosis: Gastro-esophageal reflux disease without esophagitis[ICD10: K21.9] Luz Thacker MD, [facility] CPT-4: 31077 01/25/2016 [id number]) [id number] EST. PATIENT, LEVEL IV Diagnosis: Essential (primary) hypertension[ICD10: I10] Diagnosis: Generalized anxiety disorder[ICD10: F41.1] Diagnosis: Pleurisy[ICD10: R09.1] Diagnosis: Gastro-esophageal reflux disease without esophagitis[ICD10: K21.9] Luz Thacker MD, [facility] CPT-4: 59756 12/28/2015 [id number] EST. PATIENT, LEVEL V Diagnosis: Palpitations[ICD10: R00.2] Diagnosis: Other specified hypothyroidism[ICD10: E03.8] Diagnosis: Generalized anxiety disorder[ICD10: F41.1] Diagnosis: Gastro-esophageal reflux disease without esophagitis[ICD10: K21.9] Destiny Thacker MD, [facility] CPT-4: 06897 11/30/2015 ([id number]) [id number] EST. PATIENT, LEVEL III Diagnosis: Essential (primary) hypertension[ICD10: I10] Diagnosis: Laceration without foreign body of left index finger without damage to nail, subsequent encounter[ICD10: S61.211D] Luz Thacker MD, [facility] CPT-4: 53252 08/15/2015 [id number] EST. PATIENT, LEVEL II Diagnosis: Laceration without foreign body of left index finger without damage to nail, initial encounter[ICD10: S61.211A] Tova Thacker MD, [facility] CPT-4: 45151 08/03/2015 [id number] EST. 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 Completed 12/11/2016 Visit Plan: Hypertension - well controlled - continue with current medications, continue with no added salt diet. Pt has been encouraged to exercise daily. The pt has been advised to call the office if there are any acute concerns about change in blood pressure readings at home. Esophageal Reflux - the patient has been counseled against excessive intake of caffeine, spicy foods, peppermint, and cinnamon - all of which can exacerbate esophageal reflux. The patient is to take medications as prescribed and call the office if the symptoms are not improving. Thyroid nodule - recommended a referral to Dr. Ralph. Knee pain - referral to physical therapy. 11/20/2016 Appointment: Lu[facility]acker [id number] [place] (15 min) Moderate 11/20/2016 Patient Education: Patient Medication Summary Completed 11/20/2016 Patient Education: Obesity Completed 11/20/2016 Care Plan: SCREENINGMAMMOGRAPHYDIGITAL LOINC : 29138-7 Pending 11/20/2016 Care Plan: Referral Order SNOMED-CT : [id number] Pending 11/20/2016 Care Plan: Referral Order SNOMED-CT : [id number] Pending 11/20/2016 Visit Plan: Hypertension - well controlled - continue with current medications, continue with no added salt diet. Pt has been encouraged to exercise daily. The pt has been advised to call the office if there are any acute concerns about change in blood pressure readings at home. Hypothyroidism - pt with chronic hypothyroidism, continue with current medication, will monitor pt to signs or symptoms of lack of adequate supplementation. Pt is to continue with current dose of medication unless directed otherwise. Check labs at regular intervals wither q 3 months or q 6 months based on previous levels of control. Headache - tramadol and muscle relaxer 05/22/2016 Appointment: Lu[id number] [place] (15 min) Moderate 05/22/2016 Patient Education: Patient Medication Summary Completed 05/22/2016 Patient Education: Obesity Completed 05/22/2016 Care Plan: CT ABD & PELV W/CONTRAST LOINC : 73083-2 Pending 05/04/2016 Visit Plan: Esophageal Reflux - the patient has been counseled against excessive intake of caffeine, spicy foods, peppermint, and cinnamon - all of which can exacerbate esophageal reflux. The patient is to take medications as prescribed and call the office if the symptoms are not improving. Abdominal pain - acute - will check CT and labs - pt is to notify clinic if symptoms do not improve, if they worsen, or with any questions or concerns. 04/11/2016 Appointment: Destiny Miguel WPtel: [phone] [id number] (30 min) Complex 04/11/2016 Patient Education: Patient Medication Summary Completed 04/11/2016 Patient Education: Obesity Completed 04/11/2016 Appointment: Luz Thacker WPtel: [phone] [id number] (15 min) Moderate 02/14/2016 Visit Plan: Hypertension - well controlled - continue with current medications, continue with no added salt diet. Pt has been encouraged to exercise daily. The pt has been advised to call the office if there are any acute concerns about change in blood pressure readings at home. Esophageal Reflux - uncontrolled - the patient has been counseled against excessive intake of caffeine, spicy foods, peppermint, and cinnamon - all of which can exacerbate esophageal reflux. The patient is to take medications as prescribed and call the office if the symptoms are not improving. 01/25/2016 Appointment: Luz Thacker WPtel: [id number] (15 min) Moderate 01/25/2016 Patient Education: Patient Medication Summary Completed 01/25/2016 Patient Education: Obesity Completed 01/25/2016 Patient Education: Hypertension Completed 01/25/2016 Visit Plan: Hypertension - well controlled - continue with current medications, continue with no added salt diet. Pt has been encouraged to exercise daily. The pt has been advised to call the office if there are any acute concerns about change in blood pressure readings at home. Anxiety - the patient has uncontrolled anxiety and will benefit from an SSRI on a daily basis to attempt control of the symptoms of anxiety (tachycardia, overwhelming sensations, stress, insomnia, etc). I also believe that the patient will benefit from very low dose of prn benzodiazepine. Pt is aware of the risks and benefits of treatment with the above medications. Esophageal Reflux - the patient has been counseled against excessive intake of caffeine, spicy foods, peppermint, and cinnamon - all of which can exacerbate esophageal reflux. The patient is to take medications as prescribed and call the office if the symptoms are not improving. 12/28/2015 Appointment: Luz Thacker [facility]el[id number] (15 min) Moderate 12/28/2015 Patient Education: Patient Medication Summary Completed 12/28/2015 Visit Plan: Anxiety - the patient has uncontrolled anxiety and will benefit from an SSRI on a daily basis to attempt control of the symptoms of anxiety (tachycardia, overwhelming sensations, stress, insomnia, etc ). Pt is aware of the risks and benefits of treatment with the above medications. Esophageal Reflux - the patient has been counseled against excessive intake of caffeine, spicy foods, peppermint, and cinnamon - all of which can exacerbate esophageal reflux. The patient is to take medications as prescribed and call the office if the symptoms are not improving. Hypothyroidism - pt with chronic hypothyroidism, continue with current medication, will monitor pt to signs or symptoms of lack of adequate supplementation. Pt is to continue with current dose of medication unless directed otherwise. Check labs at regular intervals wither q 3 months or q 6 months based on previous levels of control. 11/30/2015 Appointment: Destiny Miguel [facility]Ptel[phone] [id number] ([facility] min) Complex 11/30/2015 Patient Education: Patient Medication Summary Completed 11/30/2015 Patient Education: Patient Medication Summary Completed 10/06/2015 Visit Plan: HTN - well controlled - medication not changed - pt to continue with toprol xl, low sodium diet, exercise. Laceration - keep clean, dry, allow steri strips to fall off on their own - call if lesion is becoming painful, reddened, or does not heal. 08/15/2015 Patient Education: Patient Medication Summary Completed 08/15/2015 Patient Education: Obesity Completed 08/15/2015 Patient Education: Hypertension Completed 08/15/2015 Visit Plan: Laceration to finger-treated in ER-no s/s of infection today in the office-keep clean/dry-will give RX for abx due to upcoming weekend and instructed patient on use. Call if for any s/s of infection , nonhealing, or any other concerns. Patient verbalized understanding of plan. 08/03/2015 Appointment: Tova Franz [facility]Ptel: [phone] [id number] [place] (30 min) Complex 08/03/2015 Patient Education: Patient Medication Summary Completed 08/03/2015 Appointment: Luz Thacker [facility]el[facility] [phone] [id number] (15 min) Moderate 01/02/2015 Visit Plan: Hypothyroidism - pt with chronic hypothyroidism , continue with current medication, will monitor pt to signs or symptoms of lack of adequate supplementation. Pt is to continue with current dose of medication unless directed otherwise. Check labs at regular intervals wither q 3 months or q 6 months based on previous levels of control. Mass on right lateral side of the anterior tibia - pt states that it has been there for over a year, states that it is not painful, and is never red. Pt states that it is more noticeable after having been standing or walking a lot. Will send for ultra sound of leg. Pain and tenderness in the coccyx - pt had a fall as a child and has had pain in that area ever since - will send Voltaren gel. 12/20/2014 Visit Plan: Hypothyroidism - pt with chronic hypothyroidism , continue with current medication, will monitor pt to signs or symptoms of lack of adequate supplementation. Pt is to continue with current dose of medication unless directed otherwise. Check labs at regular intervals wither q 3 months or q 6 months based on previous levels of control. Mass on right lateral side of the anterior tibia - pt states that it has been there for over a year, states that it is not painful, and is never red. Pt states that it is more noticeable after having been standing or walking a lot. Will send for ultra sound of leg. Pain and tenderness in the coccyx - pt had a fall as a child and has had pain in that area ever since - will send Voltaren gel. 12/20/2014 Appointment: (15 min) Moderate 12/20/2014 Patient Education: Patient Medication Summary Completed 12/20/2014 Patient Education: Hypertension Completed 12/20/2014 Visit Plan: Hypertension - well controlled - continue with current medications, continue with no added salt diet. Pt has been encouraged to exercise daily. The pt has been advised to call the office if there are any acute concerns about change in blood pressure readings at home. goiter - recommended pt to have ultrasound due to increased symptoms of dysphagia - coughing, feeling like she has hoarseness. rx for shingles vaccine 08/30/2014 Appointment: Luz Thacker [facility]Ptel: [phone] [id number] (30 min) Complex 08/30/2014 Patient Education: Patient Medication Summary Completed 08/30/2014 Patient Education: Hypertension Completed 08/30/2014 Care Plan: COMPLETE CBC AUTOMATED LOINC : 93639-1 Ordered 08/30/2014 Referral: Josias Ralph Referral Completed Referral: Josias Ralph Referral info faxed. They call the patient with appt date/time. Completed Referral: [facility] WPtel: Referral Appointment Requested Instructions Comment . HTN - well controlled - medication not changed - pt to continue with toprol xl, low sodium diet, exercise. Laceration - keep clean, dry, allow steri strips to fall off on their own - call if lesion is becoming painful, reddened, or does not heal. stop naproxen start carafate . Hypertension - well controlled - continue with current medications, continue with no added salt diet. Pt has been encouraged to exercise daily. The pt has been advised to call the office if there are any acute concerns about change in blood pressure readings at home. Esophageal Reflux - uncontrolled - the patient has been counseled against excessive intake of caffeine, spicy foods, peppermint, and cinnamon - all of which can exacerbate esophageal reflux. The patient is to take medications as prescribed and call the office if the symptoms are not improving. . Hypothyroidism - pt with chronic hypothyroidism, continue with current medication, will monitor pt to signs or symptoms of lack of adequate supplementation. Pt is to continue with current dose of medication unless directed otherwise. Check labs at regular intervals wither q 3 months or q 6 months based on previous levels of control. Mass on right lateral side of the anterior tibia - pt states that it has been there for over a year, states that it is not painful, and is never red. Pt states that it is more noticeable after having been standing or walking a lot. Will send for ultra sound of leg. Pain and tenderness in the coccyx - pt had a fall as a child and has had pain in that area ever since - will send Voltaren gel. . Hypothyroidism - pt with chronic hypothyroidism, continue with current medication, will monitor pt to signs or symptoms of lack of adequate supplementation. Pt is to continue with current dose of medication unless directed otherwise. Check labs at regular intervals wither q 3 months or q 6 months based on previous levels of control. Mass on right lateral side of the anterior tibia - pt states that it has been there for over a year, states that it is not painful, and is never red. Pt states that it is more noticeable after having been standing or walking a lot. Will send for ultra sound of leg. Pain and tenderness in the coccyx - pt had a fall as a child and has had pain in that area ever since - will send Voltaren gel. . Laceration to finger-treated in ER-no s/s of infection today in the office-keep clean/dry-will give RX for abx due to upcoming weekend and instructed patient on use. Call if for any s/s of infection, nonhealing, or any other concerns. Patient verbalized understanding of plan. . Anxiety - the patient has uncontrolled anxiety and will benefit from an SSRI on a daily basis to attempt control of the symptoms of anxiety (tachycardia, overwhelming sensations, stress, insomnia, etc). Pt is aware of the risks and benefits of treatment with the above medications. Esophageal Reflux - the patient has been counseled against excessive intake of caffeine, spicy foods, peppermint, and cinnamon - all of which can exacerbate esophageal reflux. The patient is to take medications as prescribed and call the office if the symptoms are not improving. Hypothyroidism - pt with chronic hypothyroidism, continue with current medication, will monitor pt to signs or symptoms of lack of adequate supplementation. Pt is to continue with current dose of medication unless directed otherwise. Check labs at regular intervals wither q 3 months or q 6 months based on previous levels of control. . Hypertension - well controlled - continue with current medications, continue with no added salt diet. Pt has been encouraged to exercise daily. The pt has been advised to call the office if there are any acute concerns about change in blood pressure readings at home. Hypothyroidism - pt with chronic hypothyroidism, continue with current medication, will monitor pt to signs or symptoms of lack of adequate supplementation. Pt is to continue with current dose of medication unless directed otherwise. Check labs at regular intervals wither q 3 months or q 6 months based on previous levels of control. Headache - tramadol and muscle relaxer . Hypertension - well controlled - continue with current medications, continue with no added salt diet. Pt has been encouraged to exercise daily. The pt has been advised to call the office if there are any acute concerns about change in blood pressure readings at home. goiter - recommended pt to have ultrasound due to increased symptoms of dysphagia - coughing, feeling like she has hoarseness. rx for shingles vaccine pepcid over the counter for reflux - but cutting back on spicy foods and caffeinated beverages will help to decrease reflux . Hypertension - well controlled - continue with current medications, continue with no added salt diet. Pt has been encouraged to exercise daily. The pt has been advised to call the office if there are any acute concerns about change in blood pressure readings at home. Esophageal Reflux - the patient has been counseled against excessive intake of caffeine, spicy foods, peppermint, and cinnamon - all of which can exacerbate esophageal reflux. The patient is to take medications as prescribed and call the office if the symptoms are not improving. Thyroid nodule - recommended a referral to Dr. Ralph. Knee pain - referral to physical therapy. . Hypertension - well controlled - continue with current medications, continue with no added salt diet. Pt has been encouraged to exercise daily. The pt has been advised to call the office if there are any acute concerns about change in blood pressure readings at home. Anxiety - the patient has uncontrolled anxiety and will benefit from an SSRI on a daily basis to attempt control of the symptoms of anxiety (tachycardia, overwhelming sensations, stress, insomnia, etc). I also believe that the patient will benefit from very low dose of prn benzodiazepine. Pt is aware of the risks and benefits of treatment with the above medications. Esophageal Reflux - the patient has been counseled against excessive intake of caffeine, spicy foods, peppermint, and cinnamon - all of which can exacerbate esophageal reflux. The patient is to take medications as prescribed and call the office if the symptoms are not improving. . Esophageal Reflux - the patient has been counseled against excessive intake of caffeine, spicy foods, peppermint, and cinnamon - all of which can exacerbate esophageal reflux. The patient is to take medications as prescribed and call the office if the symptoms are not improving. Abdominal pain - acute - will check CT and labs - pt is to notify clinic if symptoms do not improve, if they worsen, or with any questions or concerns.
--- OUTSIDE RECORDS SUMMARY | 2017-09-01 10:38 | XMS REPORT | Continuity of Care Document ---
Author Author [facility] Organization [facility] Address Unknown Phone Unavailable Allergies Active Description Code Type Severity Reaction Onset Reported/Identified Relationship to Patient Clinical Status Yes NKANo Known Allergies NKA Miscellaneous Allergy Unknown N/A 04/23/2006 Yes acetaminophen [id number] Drug Allergy Mild HIVES 12/12/2016 Yes butalbital [id number] Drug Allergy Mild HIVES 12/12/2016 Yes caffeine [id number] Drug Allergy Mild HIVES 12/12/2016 Medications There is no data. Problems Date Dx Coded Attending Type Code Diagnosis Diagnosed By 12/30/2013 ADDIS FOWLER MD Ot 784.0 02/27/2014 Ot 530.81 02/27/2014 Ot 553.3 02/27/2014 YEVGENIY SANDOVAL DO Ot V76.12 02/27/2014 ADDIS FOWLER MD Ot 784.0 02/27/2014 Ot 530.81 02/27/2014 Ot 553.3 02/27/2014 YEVGENIY SANDOVAL DO Ot V76.12 02/27/2014 ADDIS FOWLER MD Ot 784.0 04/15/2014 Ot 280.9 IRON DEFIC ANEMIA NOS 04/15/2014 Ot 535.40 OTH SPECIFIED GASTRITIS,W/O MENTION OF H 04/15/2014 Ot 553.3 DIAPHRAGMATIC HERNIA 05/24/2014 Ot V72.84 07/10/2014 Ot 530.81 07/10/2014 Ot 553.3 07/10/2014 YEVGENIY SANDOVAL DO Ot V76.12 07/10/2014 ADDIS FOWLER MD Ot 784.0 07/10/2014 Ot 789.00 07/10/2014 Ot V72.84 07/11/2014 HARRISON MORRIS MD Ot 228.00 HEMANGIOMA NOS 07/11/2014 HARRISON MORRIS MD Ot 244.9 HYPOTHYROIDISM NOS 07/11/2014 HARRISON MORRIS MD Ot 401.9 HYPERTENSION NOS 07/11/2014 ALEXANDRA JOSE, HARRISON Lewis Ot 535.50 UNSP GASTRITIS GASTRODUODENITIS W/O ME 07/11/2014 HARRISON MORRIS MD Ot 786.50 CHEST PAIN NOS 07/11/2014 HARRISON MORRIS MD Ot V12.72 PERSONAL HISTORY OF COLONIC POLYPS 07/11/2014 HARRISON MORRIS MD Ot V17.3 FAM HX-ISCHEM HEART DIS 09/14/2014 GRISELDA JOSE, MOLINA Triana Ot 241.0 11/08/2014 SANDOVAL DO, YEVGENIY C Ot V76.12 11/08/2014 MALCOLM JOSE, ADDIS Buchanan Ot 784.0 11/08/2014 Ot 789.00 11/08/2014 Ot V72.84 11/08/2014 GRISELDA JOSE, MOLINA Triana Ot 241.0 11/24/2014 SANDOVAL DO, YEVGENIY C Ot V76.12 12/23/2014 SANDOVAL DO, YEVGENIY C Ot V76.12 12/23/2014 MALCOLM JOSE, ADDIS Buchanan Ot 784.0 12/23/2014 Ot 789.00 12/23/2014 Ot V72.84 12/23/2014 GRISELDA JOSE, MOLINA Triana Ot 241.0 12/23/2014 SANDOVAL DO, YEVGENIY C Ot V76.12 02/01/2015 GRISELDA JOSE, MOLINA Triana Ot R22.41 04/16/2015 SANDOVAL DO, YEVGENIY C Ot V76.12 04/16/2015 MALCOLM JOSE, ADDIS Buchanan Ot 784.0 04/16/2015 Ot 789.00 04/16/2015 Ot V72.84 04/16/2015 MOLINA VILLALOBOS MD Ot 241.0 04/16/2015 SANDOVAL DO, YEVGENIY C Ot V76.12 04/16/2015 MOLINA VILLALOBOS MD Ot R22.41 08/02/2015 SANDOVAL DO, YEVGENIY C Ot V76.12 OTH SCREEN MAMMO-MALIGN NEOPLASM OF LIOR 08/02/2015 MALCOLM JOSE, ADDIS Buchanan Ot 784.0 HEADACHE 08/02/2015 Ot 789.00 ABDOMINAL PAIN, UNSPECIFIED SITE 08/02/2015 Ot V72.84 EXAM PRE- OPERATIVE NOS 08/02/2015 MOLINA VILLALOBOS MD Ot 241.0 NONTOX UNINODULAR GOITER 08/02/2015 YEVGENIY SANDOVAL DO Ot V76.12 OTH SCREEN MAMMO-MALIGN NEOPLASM OF LIOR 08/02/2015 MOLINA VILLALOBOS MD Ot R22.41 LOCALIZED SWELLING, MASS AND LUMP, RIGHT 08/03/2015 LINA NUNN MD Ot S61.211A LACERATION W/O FB OF L IDX FNGR W/O LILLIAN 08/03/2015 LINA NUNN MD Ot W26.0XXA CONTACT WITH KNIFE, INITIAL ENCOUNTER 08/03/2015 LINA NUNN MD Ot Y92.010 KITCHEN OF SINGLE-FAMILY (PRIVATE) HOUSE 08/03/2015 LINA NUNN MD Ot Y93.G1 ACTIVITY, FOOD PREPARATION AND CLEAN UP 08/03/2015 LINA NUNN MD Ot Y99.8 OTHER EXTERNAL CAUSE STATUS 08/03/2015 YEVGENIY SANDOVAL DO Ot V76.12 OTH SCREEN MAMMO-MALIGN NEOPLASM OF LIOR 08/03/2015 MALCOLM JOSE, ADDIS M Ot 784.0 HEADACHE 08/03/2015 Ot 789.00 ABDOMINAL PAIN, UNSPECIFIED SITE 08/03/2015 Ot V72.84 EXAM PRE- OPERATIVE NOS 08/03/2015 MOLINA VILLALOBOS MD Ot 241.0 NONTOX UNINODULAR GOITER 08/03/2015 YEVGENIY SANDOVAL DO Ot V76.12 OTH SCREEN MAMMO-MALIGN NEOPLASM OF LIOR 08/03/2015 MOLINA VILLALOBOS MD Ot R22.41 LOCALIZED SWELLING, MASS AND LUMP, RIGHT 08/03/2015 LINA NUNN MD Ot S61.211A LACERATION W/O FB OF L IDX FNGR W/O LILLIAN 08/03/2015 LINA NUNN MD Ot W26.0XXA CONTACT WITH KNIFE, INITIAL ENCOUNTER 08/03/2015 LINA NUNN MD Ot Y92.010 KITCHEN OF SINGLE-FAMILY (PRIVATE) HOUSE 08/03/2015 LINA NUNN MD Ot Y93.G1 ACTIVITY, FOOD PREPARATION AND CLEAN UP 08/03/2015 ARLINE JOSE, LINA Arriaza Ot Y99.8 OTHER EXTERNAL CAUSE STATUS 08/08/2015 ARLINE JOSE, LINA Arriaza Ot S61.211A LACERATION W/O FB OF L IDX FNGR W/O LILLIAN 08/08/2015 ARLINE JOSE, LINA Arriaza Ot W26.0XXA CONTACT WITH KNIFE, INITIAL ENCOUNTER 08/08/2015 LINA NUNN MD Ot Y92.010 KITCHEN OF SINGLE-FAMILY (PRIVATE) HOUSE 08/08/2015 LINA NUNN MD Ot Y93.G1 ACTIVITY, FOOD PREPARATION AND CLEAN UP 08/08/2015 LINA NUNN MD Ot Y99.8 OTHER EXTERNAL CAUSE STATUS 08/29/2015 YEVGENIY SANDOVAL DO Ot V76.12 OTH SCREEN MAMMO-MALIGN NEOPLASM OF LIOR 08/29/2015 MALCOLM JOSE, ADDIS Buchanan Ot 784.0 HEADACHE 08/29/2015 Ot 789.00 ABDOMINAL PAIN, UNSPECIFIED SITE 08/29/2015 Ot V72.84 EXAM PRE- OPERATIVE NOS 08/29/2015 GRISELDA JOSE, MOLINA Triana Ot 241.0 NONTOX UNINODULAR GOITER 08/29/2015 YEVGENIY SANDOVAL DO Ot V76.12 OTH SCREEN MAMMO-MALIGN NEOPLASM OF LIOR 08/29/2015 GRISELDA JOSE, MOLINA Triana Ot R22.41 LOCALIZED SWELLING, MASS AND LUMP, RIGHT 10/18/2015 TERESA DUNN NAIL SETTER Ot Z12.31 ENCNTR SCREEN MAMMOGRAM FOR MALIGNANT NE 11/01/2015 TERESA DUNN NAIL SETTER Ot Z12.31 ENCNTR SCREEN MAMMOGRAM FOR MALIGNANT NE 11/02/2015 YEVGENIY SANDOVAL DO Ot N83.20 UNSPECIFIED OVARIAN CYSTS 11/02/2015 YEVGENIY SANDOVAL DO Ot 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 11/02/2015 YEVGENIY SANDOVAL DO Ot N89.8 OTHER SPECIFIED NONINFLAMMATORY DISORDER 11/02/2015 YEVGENIY SANDOVAL DO Ot N95.1 MENOPAUSAL AND FEMALE CLIMACTERIC STATES 11/02/2015 YEVGENIY SANDOVAL DO Ot R93.8 ABNORMAL FINDINGS ON DIAGNOSTIC IMAGING 11/14/2015 SANDOVAL DO, YEVGENIY C Ot N83.20 UNSPECIFIED OVARIAN CYSTS 11/14/2015 SANDOVAL DO, YEVGENIY C Ot 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 11/14/2015 SANDOVAL DO, YEVGENIY C Ot N89.8 OTHER SPECIFIED NONINFLAMMATORY DISORDER 11/14/2015 SANDOVAL DO, YEVGENIY C Ot N95.1 MENOPAUSAL AND FEMALE CLIMACTERIC STATES 11/14/2015 SANDOVAL DO YEVGENIY C Ot R93.8 ABNORMAL FINDINGS ON DIAGNOSTIC IMAGING 04/11/2016 SANDOVAL DO YEVGENIY C Ot V76.12 OTH SCREEN MAMMO-MALIGN NEOPLASM OF LIOR 04/11/2016 MALCOLM JOSE, ADDIS M Ot 784.0 HEADACHE 04/11/2016 Ot 789.00 ABDOMINAL PAIN, UNSPECIFIED SITE 04/11/2016 Ot V72.84 EXAM PRE- OPERATIVE NOS 04/11/2016 MOLINA VILLALOBOS MD Ot 241.0 NONTOX UNINODULAR GOITER 04/11/2016 SANDOVAL DOJAYYA C Ot V76.12 OTH SCREEN MAMMO-MALIGN NEOPLASM OF LIOR 04/11/2016 MOLINA VILLALOBOS MD Ot R22.41 LOCALIZED SWELLING, MASS AND LUMP, RIGHT 04/11/2016 TERESA DUNN APRN Ot Z12.31 ENCNTR SCREEN MAMMOGRAM FOR MALIGNANT NE 04/11/2016 LORI DO YEVGENIY C Ot N83.20 UNSPECIFIED OVARIAN CYSTS 04/11/2016 SANDOVAL DO YEVGENIY C Ot 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 04/11/2016 SANDOVAL DO YEVGENIY C Ot N89.8 OTHER SPECIFIED NONINFLAMMATORY DISORDER 04/11/2016 SANDOVAL DO YEVGENIY C Ot N95.1 MENOPAUSAL AND FEMALE CLIMACTERIC STATES 04/11/2016 SANDOVAL DO YEVGENIY C Ot R93.8 ABNORMAL FINDINGS ON DIAGNOSTIC IMAGING 04/11/2016 TERESA DUNN NAIL SETTER Ot E04.1 NONTOXIC SINGLE THYROID NODULE 04/11/2016 TERESA DUNN NAIL SETTER Ot R07.9 CHEST PAIN, UNSPECIFIED 04/11/2016 TERESA DUNN APRN Ot R10.13 EPIGASTRIC PAIN 04/12/2016 TERESA DUNN NAIL SETTER Ot E04.1 NONTOXIC SINGLE THYROID NODULE 04/12/2016 TERESA DUNN NAIL SETTER Ot R07.9 CHEST PAIN, UNSPECIFIED 04/12/2016 TERESA DUNN NAIL SETTER Ot R10.13 EPIGASTRIC PAIN 05/01/2016 TERESA DUNN NAIL SETTER Ot E04.1 NONTOXIC SINGLE THYROID NODULE 05/01/2016 TERESA DUNN NAIL SETTER Ot R07.9 CHEST PAIN, UNSPECIFIED 05/01/2016 TERESA DUNN NAIL SETTER Ot R10.13 EPIGASTRIC PAIN 05/03/2016 Ot E04.1 NONTOXIC SINGLE THYROID NODULE 05/14/2016 Ot E04.1 NONTOXIC SINGLE THYROID NODULE 05/20/2016 TERESA DUNN NAIL SETTER Ot E04.1 NONTOXIC SINGLE THYROID NODULE 06/07/2016 TERESA DUNN NAIL SETTER Ot E04.1 NONTOXIC SINGLE THYROID NODULE 08/19/2016 YEVGENIY SANDOVAL DO Ot V76.12 OTH SCREEN MAMMO-MALIGN NEOPLASM OF LIOR 08/19/2016 MALCOLM JOSE, ADDIS Buchanan Ot 784.0 HEADACHE 08/19/2016 Ot 789.00 ABDOMINAL PAIN, UNSPECIFIED SITE 08/19/2016 Ot V72.84 EXAM PRE- OPERATIVE NOS 08/19/2016 GRISELDA JOSE, MOLINA Triana Ot 241.0 NONTOX UNINODULAR GOITER 08/19/2016 YEVGENIY SANDOVAL DO C Ot V76.12 OTH SCREEN MAMMO-MALIGN NEOPLASM OF LIOR 08/19/2016 GRISELDA JOSE, MOLINA Triana Ot R22.41 LOCALIZED SWELLING, MASS AND LUMP, RIGHT 08/19/2016 TERESA DUNN NAIL SETTER Ot Z12.31 ENCNTR SCREEN MAMMOGRAM FOR MALIGNANT NE 08/19/2016 YEVGENIY SANDOVAL DO Ot N83.20 UNSPECIFIED OVARIAN CYSTS 08/19/2016 LORI BOLTON YEVGENIY C Ot 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 08/19/2016 YEVGENIY SANDOVAL DO C Ot N89.8 OTHER SPECIFIED NONINFLAMMATORY DISORDER 08/19/2016 LORI BOLTON YEVGENIY C Ot N95.1 MENOPAUSAL AND FEMALE CLIMACTERIC STATES 08/19/2016 LORI BOLTON YVEGENIY C Ot R93.8 ABNORMAL FINDINGS ON DIAGNOSTIC IMAGING 08/19/2016 TERESA DUNN NAIL SETTER Ot E04.1 NONTOXIC SINGLE THYROID NODULE 08/19/2016 TERESA DUNN NAIL SETTER Ot R07.9 CHEST PAIN, UNSPECIFIED 08/19/2016 TERESA DUNN NAIL SETTER Ot R10.13 EPIGASTRIC PAIN 08/19/2016 Ot E04.1 NONTOXIC SINGLE THYROID NODULE 08/19/2016 TERESA DUNN NAIL SETTER Ot E04.1 NONTOXIC SINGLE THYROID NODULE 08/19/2016 JAYY SANDOVAL DOA C Ot V76.12 OTH SCREEN MAMMO-MALIGN NEOPLASM OF LIOR 08/19/2016 MALCOLM JOSE, ADDIS M Ot 784.0 HEADACHE 08/19/2016 Ot 789.00 ABDOMINAL PAIN, UNSPECIFIED SITE 08/19/2016 Ot V72.84 EXAM PRE- OPERATIVE NOS 08/19/2016 MOLINA VILLALOBOS MD Ot 241.0 NONTOX UNINODULAR GOITER 08/19/2016 YEVGENIY SANDOVAL DO Ot V76.12 OTH SCREEN MAMMO-MALIGN NEOPLASM OF LIOR 08/19/2016 MOLINA VILLALOBOS MD Ot R22.41 LOCALIZED SWELLING, MASS AND LUMP, RIGHT 08/19/2016 TERESA DUNN NAIL SETTER Ot Z12.31 ENCNTR SCREEN MAMMOGRAM FOR MALIGNANT NE 08/19/2016 JAYY SANDOVAL DOA C Ot N83.20 UNSPECIFIED OVARIAN CYSTS 08/19/2016 YEVGENIY SANDOVAL DO C Ot 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 08/19/2016 LORI BOLTON YEVGENIY C Ot N89.8 OTHER SPECIFIED NONINFLAMMATORY DISORDER 08/19/2016 LORI BOLTON YEVGENIY C Ot N95.1 MENOPAUSAL AND FEMALE CLIMACTERIC STATES 08/19/2016 LORI BOLTON YEVGENIY C Ot R93.8 ABNORMAL FINDINGS ON DIAGNOSTIC IMAGING 08/19/2016 TERESA DUNN NAIL SETTER Ot E04.1 NONTOXIC SINGLE THYROID NODULE 08/19/2016 TERESA DUNN NAIL SETTER Ot R07.9 CHEST PAIN, UNSPECIFIED 08/19/2016 TERESA DUNN NAIL SETTER Ot R10.13 EPIGASTRIC PAIN 08/19/2016 Ot E04.1 NONTOXIC SINGLE THYROID NODULE 08/19/2016 TERESA DUNN NAIL SETTER Ot E04.1 NONTOXIC SINGLE THYROID NODULE 11/06/2016 MOLINA VILLALOBOS MD Ot E04.2 NONTOXIC MULTINODULAR GOITER 11/06/2016 GRISELDA MD, MOLINA A Ot E04.2 NONTOXIC MULTINODULAR GOITER 11/13/2016 MOLINA VILLALOBOS MD Ot E04.2 NONTOXIC MULTINODULAR GOITER 12/11/2016 YEVGENIY SANDOVAL DO Ot V76.12 OTH SCREEN MAMMO-MALIGN NEOPLASM OF LIOR 12/11/2016 MALCOLM JOSE, ADDIS Chanel Ot 784.0 HEADACHE 12/11/2016 Ot 789.00 ABDOMINAL PAIN, UNSPECIFIED SITE 12/11/2016 Ot V72.84 EXAM PRE- OPERATIVE NOS 12/11/2016 GRISELDA JOSE, MOLINA Triana Ot 241.0 NONTOX UNINODULAR GOITER 12/11/2016 YEVGENIY SANDOVAL DO C Ot V76.12 OTH SCREEN MAMMO-MALIGN NEOPLASM OF LIOR 12/11/2016 GRISELDA JOSE, MOLINA Triana Ot R22.41 LOCALIZED SWELLING, MASS AND LUMP, RIGHT 12/11/2016 TERESA DUNN APRN Ot Z12.31 ENCNTR SCREEN MAMMOGRAM FOR MALIGNANT NE 12/11/2016 YEVGENIY SANDOVAL DO C Ot N83.20 UNSPECIFIED OVARIAN CYSTS 12/11/2016 LORI BOLTON YEVGENIY C Ot 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 12/11/2016 LORI BOLTON YEVGENIY C Ot N89.8 OTHER SPECIFIED NONINFLAMMATORY DISORDER 12/11/2016 LORI BOLTON YEVGENIY C Ot N95.1 MENOPAUSAL AND FEMALE CLIMACTERIC STATES 12/11/2016 LORI BOLTON YEVGENIY C Ot R93.8 ABNORMAL FINDINGS ON DIAGNOSTIC IMAGING 12/11/2016 TERESA DUNN APRN Ot E04.1 NONTOXIC SINGLE THYROID NODULE 12/11/2016 TERESA DUNN NAIL SETTER Ot R07.9 CHEST PAIN, UNSPECIFIED 12/11/2016 TERESA DUNN NAIL SETTER Ot R10.13 EPIGASTRIC PAIN 12/11/2016 Ot E04.1 NONTOXIC SINGLE THYROID NODULE 12/11/2016 TERESA DUNN APRN Ot E04.1 NONTOXIC SINGLE THYROID NODULE 12/11/2016 GRISELDA JOSE, MOLINA Triana Ot E04.2 NONTOXIC MULTINODULAR GOITER 12/11/2016 MELISSA JOSE, NIKOLE Buchanan Ot E04.1 NONTOXIC SINGLE THYROID NODULE 12/11/2016 MELISSA JOSE, NIKOLE Buchanan Ot Z80.8 FAMILY HISTORY OF MALIGNANT NEOPLASM OF 12/12/2016 NIKOLE TORRES MD Ot E04.9 NONTOXIC GOITER, UNSPECIFIED 12/12/2016 NIKOLE TORRES MD Ot Z01.818 ENCOUNTER FOR OTHER PREPROCEDURAL EXAMIN 12/12/2016 NIKOLE TORRES MD Ot Z80.8 FAMILY HISTORY OF MALIGNANT NEOPLASM OF 12/12/2016 NIKOLE TORRES MD Ot E04.9 NONTOXIC GOITER, UNSPECIFIED 12/12/2016 NIKOLE TORRES MD Ot Z01.818 ENCOUNTER FOR OTHER PREPROCEDURAL EXAMIN 12/12/2016 NIKOLE TORRES MD Ot Z80.8 FAMILY HISTORY OF MALIGNANT NEOPLASM OF 12/12/2016 YEVGENIY SANDOVAL DO Ot Z12.31 ENCNTR SCREEN MAMMOGRAM FOR MALIGNANT NE 12/18/2016 NIKOLE TORRES MD Ot E04.9 NONTOXIC GOITER, UNSPECIFIED 12/18/2016 NIKOLE TORRES MD Ot Z01.818 ENCOUNTER FOR OTHER PREPROCEDURAL EXAMIN 12/18/2016 NIKOLE TORRES MD Ot Z80.8 FAMILY HISTORY OF MALIGNANT NEOPLASM OF 12/19/2016 NIKOLE TORRES MD Ot E03.9 HYPOTHYROIDISM, UNSPECIFIED 12/19/2016 NIKOLE TORRES MD Ot E04.2 NONTOXIC MULTINODULAR GOITER 12/19/2016 NIKOLE TORRES MD Ot E66.9 OBESITY, UNSPECIFIED 12/19/2016 NIKOLE TORRES MD Ot I08.1 RHEUMATIC DISORDERS OF BOTH MITRAL AND T 12/19/2016 NIKOLE TORRES MD Ot I10 ESSENTIAL (PRIMARY) HYPERTENSION 12/19/2016 NIKOLE TORRES MD Ot K21.9 GASTRO-ESOPHAGEAL REFLUX DISEASE WITHOUT 12/19/2016 NIKOLE TORRES MD Ot Z68.33 BODY MASS INDEX (BMI) 33.0-33.9, ADULT 12/19/2016 NIKOLE TORRES MD Ot Z79.899 OTHER CUSTOMER SUPPORT MANAGER (CURRENT) DRUG THERAPY 12/19/2016 NIKOLE TORRES MD Ot Z80.8 FAMILY HISTORY OF MALIGNANT NEOPLASM OF 12/25/2016 NIKOLE TORRES MD Ot E03.9 HYPOTHYROIDISM, UNSPECIFIED 12/25/2016 NIKOLE TORRES MD Ot E04.2 NONTOXIC MULTINODULAR GOITER 12/25/2016 NIKOLE TORRES MD Ot E66.9 OBESITY, UNSPECIFIED 12/25/2016 NIKOLE TORRES MD Ot I08.1 RHEUMATIC DISORDERS OF BOTH MITRAL AND T 12/25/2016 NIKOLE TORRES MD Ot I10 ESSENTIAL (PRIMARY) HYPERTENSION 12/25/2016 NIKOLE TORRES MD Ot K21.9 GASTRO-ESOPHAGEAL REFLUX DISEASE WITHOUT 12/25/2016 NIKOLE TORRES MD Ot Z68.33 BODY MASS INDEX (BMI) 33.0-33.9, ADULT 12/25/2016 NIKOLE TORRES MD Ot Z79.899 OTHER CUSTOMER SUPPORT MANAGER (CURRENT) DRUG THERAPY 12/25/2016 NIKOLE TORRES MD Ot Z80.8 FAMILY HISTORY OF MALIGNANT NEOPLASM OF 01/01/2017 NIKOLE TORRES MD Ot E03.9 HYPOTHYROIDISM, UNSPECIFIED 01/01/2017 NIKOLE TORRES MD Ot E04.2 NONTOXIC MULTINODULAR GOITER 01/01/2017 NIKOLE TORRES MD Ot E66.9 OBESITY, UNSPECIFIED 01/01/2017 NIKOLE TORRES MD Ot I08.1 RHEUMATIC DISORDERS OF BOTH MITRAL AND T 01/01/2017 NIKOLE TORRES MD Ot I10 ESSENTIAL (PRIMARY) HYPERTENSION 01/01/2017 NIKOLE TORRES MD Ot K21.9 GASTRO-ESOPHAGEAL REFLUX DISEASE WITHOUT 01/01/2017 NIKOLE TORRES MD Ot Z68.33 BODY MASS INDEX (BMI) 33.0-33.9, ADULT 01/01/2017 NIKOLE TORRES MD Ot Z79.899 OTHER GROUP HOME (CURRENT) DRUG THERAPY 01/01/2017 NIKOLE TORRES MD Ot Z80.8 FAMILY HISTORY OF MALIGNANT NEOPLASM OF 01/23/2017 NIKOLE TORRES MD Ot E04.1 NONTOXIC SINGLE THYROID NODULE 01/23/2017 NIKOLE TORRES MD Ot Z80.8 FAMILY HISTORY OF MALIGNANT NEOPLASM OF 01/23/2017 YEVGENIY SANDOVAL DO Ot Z12.31 ENCNTR SCREEN MAMMOGRAM FOR MALIGNANT NE 02/06/2017 NIKOLE TORRES MD Ot E89.0 POSTPROCEDURAL HYPOTHYROIDISM 02/20/2017 NIKOLE TORRES MD Ot E89.0 POSTPROCEDURAL HYPOTHYROIDISM 08/26/2017 MELISSA JOSE, NIKOLE Buchanan Ot Z01.818 ENCOUNTER FOR OTHER PREPROCEDURAL EXAMIN 08/26/2017 NIKOLE TORRES MD, Ot Z12.11 ENCOUNTER FOR SCREENING FOR MALIGNANT NE 08/26/2017 MELISSA JOSE, NIKOLE Buchanan Ot Z80.0 FAMILY HISTORY OF MALIGNANT NEOPLASM OF Procedures There is no data. Results Test Result Range Complete blood count (CBC) with automated white blood cell (WBC) differential - 04/11/16 15:00 Blood leukocytes automated count (number/volume) 5.6 10*3/uL 4.3-11.0 Blood erythrocytes automated count (number/volume) 4.81 10*6/uL 4.35-5.85 Venous blood hemoglobin measurement (mass/volume) 13.5 g/dL 11.5-16.0 Blood hematocrit (volume fraction) 42 % 35-52 Automated erythrocyte mean corpuscular volume 87 [foz_us] 80-99 Automated erythrocyte mean corpuscular hemoglobin (mass per erythrocyte) 28 pg 25-34 Automated erythrocyte mean corpuscular hemoglobin concentration measurement ( mass/volume) 32 g/dL 32-36 Automated erythrocyte distribution width ratio 14.7 % 10.0-14.5 Automated blood platelet count (count/volume) 309 10*3/uL 130-400 Automated blood platelet mean volume measurement 9.3 [foz_us] 7.4-10.4 Automated blood neutrophils/100 leukocytes 55 % 42-75 Automated blood lymphocytes/100 leukocytes 27 % 12-44 Blood monocytes/100 leukocytes 14 % 0-12 Automated blood eosinophils/100 leukocytes 4 % 0-10 Automated blood basophils/100 leukocytes 0 % 0-10 Blood neutrophils automated count (number/volume) 3.1 10*3 1.8-7.8 Blood lymphocytes automated count (number/volume) 1.5 10*3 1.0-4.0 Blood monocytes automated count (number/volume) 0.8 10*3 0.0-1.0 Automated eosinophil count 0.2 10*3/uL 0.0-0.3 Automated blood basophil count (count/volume) 0.0 10*3/uL 0.0-0.1 Comprehensive metabolic panel - 04/11/16 15:00 Serum or plasma sodium measurement (moles/volume) 142 mmol/L 135-145 Serum or plasma potassium measurement (moles/volume) 3.9 mmol/L 3.6-5.0 Serum or plasma chloride measurement (moles/volume) 106 mmol/L 98-107 Carbon dioxide 24 mmol/L 21-32 Serum or plasma anion gap determination (moles/volume) 12 mmol/L 5-14 Serum or plasma urea nitrogen measurement (mass/volume) 12 mg/dL 7-18 Serum or plasma creatinine measurement (mass/volume) 0.80 mg/dL 0.60-1.30 Serum or plasma urea nitrogen/creatinine mass ratio 15 NRG Serum or plasma creatinine measurement with calculation of estimated glomerular filtration rate > NRG Serum or plasma glucose measurement (mass/volume) 100 mg/dL 70-105 Serum or plasma calcium measurement (mass/volume) 9.0 mg/dL 8.5-10.1 Serum or plasma total bilirubin measurement (mass/volume) 0.4 mg/dL 0.1-1.0 Serum or plasma alkaline phosphatase measurement (enzymatic activity/volume) 101 U/L 40-136 Serum or plasma aspartate aminotransferase measurement (enzymatic activity/ volume) 31 U/L 5-34 Serum or plasma alanine aminotransferase measurement (enzymatic activity/volume ) 29 U/L 0-55 Serum or plasma protein measurement (mass/volume) 7.1 g/dL 6.4-8.2 Serum or plasma albumin measurement (mass/volume) 4.4 g/dL 3.2-4.5 THYROID STIMULATING HORMONE - 04/11/16 15:00 THYROID STIMULATING HORMONE 1.38 u[iU]/mL 0.35-4.94 Serum or plasma thyroxine (T4) free measurement (mass/volume) - 04/11/16 15:00 Serum or plasma thyroxine (T4) free measurement (mass/volume) 0.97 ng/dL 0.70-1.48 THYROID STIMULATING HORMONE - 11/28/16 13:43 THYROID STIMULATING HORMONE 2.36 u[iU]/mL 0.35-4.94 Thyroxine (T4) measurement - 11/28/16 13:43 T4 (thyroxine) 7.9 % 5.5-12.0 [id number] - 11/28/16 13:43 Thyroglobulin [mass/volume] in serum or plasma 0.17 % 0.00-0.50 Serum or plasma thyroperoxidase antibody assay (units/volume) 534.17 % 0.00-100.00 Urine beta human chorionic gonadotropin (hCG) measurement - 12/18/16 06:15 Urine beta human chorionic gonadotropin (hCG) measurement NEGATIVE NEGATIVE Methicillin resistant Staphylococcus aureus (MRSA) screening culture - 06:15 Methicillin resistant Staphylococcus aureus (MRSA) screening culture NEG NRG Automated blood complete blood count (hemogram) panel - 12/18/16 06:45 Blood leukocytes automated count (number/volume) 5.8 10*3/uL 4.3-11.0 Blood erythrocytes automated count (number/volume) 5.08 10*6/uL 4.35-5.85 Venous blood hemoglobin measurement (mass/volume) 15.3 g/dL 11.5-16.0 Blood hematocrit (volume fraction) 46 % 35-52 Automated erythrocyte mean corpuscular volume 90 [foz_us] 80-99 Automated erythrocyte mean corpuscular hemoglobin (mass per erythrocyte) 30 pg 25-34 Automated erythrocyte mean corpuscular hemoglobin concentration measurement ( mass/volume) 34 g/dL 32-36 Automated erythrocyte distribution width ratio 13.1 % 10.0-14.5 Automated blood platelet count (count/volume) 235 10*3/uL 130-400 Automated blood platelet mean volume measurement 9.7 [foz_us] 7.4-10.4 Whole blood basic metabolic panel - 12/18/16 06:45 Serum or plasma sodium measurement (moles/volume) 140 mmol/L 135-145 Serum or plasma potassium measurement (moles/volume) 3.9 mmol/L 3.6-5.0 Serum or plasma chloride measurement (moles/volume) 107 mmol/L 98-107 Carbon dioxide 22 mmol/L 21-32 Serum or plasma anion gap determination (moles/volume) 11 mmol/L 5-14 Serum or plasma urea nitrogen measurement (mass/volume) 14 mg/dL 7-18 Serum or plasma creatinine measurement (mass/volume) 0.76 mg/dL 0.60-1.30 Serum or plasma urea nitrogen/creatinine mass ratio 18 NRG Serum or plasma creatinine measurement with calculation of estimated glomerular filtration rate > NRG Serum or plasma glucose measurement (mass/volume) 112 mg/dL 70-105 Serum or plasma calcium measurement (mass/volume) 9.7 mg/dL 8.5-10.1 Encounters ACCT No. Visit Date/Time Discharge Status Pt. Type Provider Facility Loc./Unit Complaint [id number] 08/25/2017 05:57:00 08/25/2017 14:26:00 DIS Outpatient NIKOLE TORRES MD [facility] PREOP COLONOSCOPY [id number] 02/05/2017 15:08:00 02/05/2017 23:59:59 CLS Outpatient NIKOLE TORRES MD [facility] LAB RIGHT HEMITHYROIDECTOMY [id number] 12/18/2016 06:00:00 12/19/2016 12:20:00 DIS Outpatient NIKOLE TORRES MD [facility] SDC RIGHT THYROID NODULES [id number] 12/12/2016 05:31:00 12/12/2016 15:12:00 DIS Outpatient NIKOLE TORRES MD [facility] PREOP RIGHT [place]- THYROIDECTOMY; POSSIBLE TOTAL [id number] 12/11/2016 13:41:00 12/11/2016 23:59:59 CLS Preadmit MOLINA VILLALOBOS MD [facility] REHAB BILATERAL KNEE PAIN [id number] 12/11/2016 08:38:00 12/11/2016 23:59:59 CLS Outpatient YEVGENIY SANDOVAL DO [facility] RAD SCREENING [id number] 11/28/2016 13:30:00 11/28/2016 23:59:59 CLS Outpatient NIKOLE TORRES MD [facility] LAB RT THYROID NODULCES/ HX OF THYROID CANCER [id number] 11/05/2016 13:45:00 11/05/2016 23:59:59 CLS Outpatient MOLINA VILLALOBOS MD [facility] RAD THYROID NODULES [id number] 05/20/2016 12:38:00 05/20/2016 23:59:59 CLS Outpatient TERESA DUNN APRN [facility] RAD HX OF ABNORMAL THYROID SONO [id number] 04/11/2016 14:20:00 04/11/2016 23:59:59 CLS Outpatient TERESA DUNN APRN [facility] RAD ABD PAIN, EPIGASTRIC PAIN, CHEST PAIN [id number] 11/01/2015 13:52:00 11/01/2015 23:59:59 CLS Outpatient YEVGENIY SANDOVAL DO [facility] RAD VAGINAL DISCHARGE, PERIMENOPAUSE [id number] 10/17/2015 08:48:00 10/17/2015 23:59:59 CLS Outpatient TERESA DUNN ZITA [facility] RAD SCREENING [id number] 08/02/2015 23:24:00 08/03/2015 00:59:00 DIS Emergency ARLINE JOSE, LINA Arriaza [facility] ER LEFT HAND,INDEX FINGER LAC [id number] 12/23/2014 14:46:00 12/23/2014 23:59:59 CLS Outpatient MOLINA VILLALOBOS MD [facility] RAD MASS OF RIGHT LOWER LEG [id number] 11/08/2014 08:36:00 11/08/2014 23:59:59 CLS Outpatient YEVGENIY SANDOVAL DO [facility] RAD SCREENING [id number] 09/02/2014 09:30:00 09/02/2014 23:59:59 CLS Outpatient MOLINA VILLALOBOS MD [facility] RAD GOITER [id number] 07/10/2014 03:25:00 07/11/2014 17:45:00 DIS Inpatient ALEXANDRA JOSE, HARRISON Lewis [facility] CSD CP [id number] 12/13/2013 07:48:00 12/13/2013 23:59:59 CLS Outpatient ADDIS FOWLER MD [facility] RAD HEADACHE CEREBRAL MANGIOMA [id number] 09/30/2013 08:28:00 09/30/2013 23:59:59 CLS Outpatient YEVGENIY SANDOVAL DO [facility] RAD SCREENING [id number] 09/21/2012 10:59:00 09/21/2012 23:59:59 CLS Outpatient [id number] 07/24/2012 07:24:00 07/24/2012 10:35:00 DIS Outpatient [id number] 07/23/2012 07:15:00 07/23/2012 23:59:59 CLS Outpatient [id number] 09/01/2017 12:30:00 PEN Kobe TORRES MD, NIKOLE Buchanan [facility] ENDO SCREENING/FAMILY HX COLON CANCER [id number] 05/03/2016 09:44:00 Document Registration [id number] 04/15/2014 06:56:00 Document Registration [id number] 04/14/2014 15:25:00 Document Registration [id number] 04/12/2014 08:06:00 Document Registration [id number] 03/28/2009 08:16:00 Document Registration [id number] 12/26/2016 09:45:06 12/26/2016 23:59:59 CLS Outpatient
[2017-09-01 10:45] VITALS: BP 128/82
--- NOTE | 2017-09-01 11:09 | Conscious Sedation/ASA ---
Conscious Sedation Pre-Proced Time Reviewed: 11:09 ASA Class: 2 Airway Mallampati Classification: ([place] appropriate class) I. II. III, IV Lungs Heart ASA score ASA 1: a normal healthy patient ASA 2: a patient with a mild systemic disease (mid diabetes, controlled hypertension, obesity ASA 3: a patient with a severe systemic disease that limits activity (angina , COPD, prior Myocardial infarction) ASA 4: a patient with an incapacitating disease that is a constant threat to life (CHF, renal failure) ASA 5: a moribund patient not expected to survive 24 hrs. (ruptured aneurysm) ASA 6: a declared brain patient whose organs are being harvested. For emergent operations, add the letter E after the classification Grade 1 Sedation Plan: Discussed options with patient/fam Note The patient is an appropriate candidate to undergo the planned procedure, sedation, and anesthesia. The patient immediately re-assessed prior to indication. NIKOLE TORRES MD Sep 01, 2017 11:09 am
--- NOTE | 2017-09-01 11:09 | History & Physicial ---
History of Present Illness History of Present Illness Reason for visit/HPI To undergo screening colonoscopy. Reports a family history of colon cancer in her mother. Previous history of polyps. Reports 1 episode of noticing fresh blood on the toilet paper, a week ago Date of Admission 09/01/17 Date Seen by Provider: Sep 01, 2017 Time Seen by Provider: 11:08 I consulted on this patient on 09/01/17 11:06 Attending Physician Nikole Ralph MD Admitting Physician Luz Thacker MD Consult Allergies and Home Medications Allergies Coded Allergies: butalbital (Verified Allergy, Mild, HIVES, 12/12/16) caffeine (Verified Allergy, Mild, HIVES, 12/12/16) Home Medications Acetaminophen 325 Mg Tablet, 650 MG PO PRN, (Reported) Calcium Carbonate 200 Mg Tab.chew, 200 MG PO PRN, (Reported) Calcium Carbonate/Vitamin D3 1 Each Tablet, 1 EACH PO DAILY, (Reported) Diphenhydramine HCl 25 Mg Capsule, 25 MG PO BID PRN for CONGESTION, (Reported) Levothyroxine Sodium 50 Mcg Tablet, 50 MCG PO DAILY, (Reported) Metoprolol Succinate 50 Mg Tab.er.24h, 50 MG PO HS, (Reported) Multivitamin 1 Each Tablet, 1 EACH PO DAILY, (Reported) Patient Home Medication List Home Medication List Reviewed: Yes Past Hhcvhej-Jzswzx-Ltbfhb Hx Patient Social History Marrital Status: Employed/Student: employed Alcohol Use: Denies Use Recreational Drug Use: No Smoking Status: Never a Smoker Recent Foreign Travel: No Contact w/other who traveled: No Recent Hopitalizations: No Recent Infectious Disease Expo: No Immunizations Up To Date Tetanus Booster (TDap): More than 5yrs Pediatric: No Seasonal Allergies Seasonal Allergies: Yes Surgeries Yes (HERNIA, COLONOSCOPY, EGD, C sect x2, laproscopy neddle biopsy x 5 on thyr ) Abdominal, Adenoidectomy, Section, Thyroidectomy, Tonsillectomy Respiratory No Cardiovascular Yes (MITRAL VAVLE REGURGITATION) Hypertension Neurological Yes Headaches /Migraines Reproductive System Hx Reproductive Disorders: No Sexually Transmitted Disease: No HIV/AIDS: No Female Reproductive Disorders: Endometriosis Genitourinary No Gastrointestinal Yes Gastroesophageal Reflux, Ulcer Musculoskeletal Yes (arthritis) Arthritis Endocrine History of Endocrine Disorders: Yes (growth on Thyroid tx- levothyroxine) HEENT History of HEENT Disorders: No Loss of Vision: Bilateral Hearing Impairment: Denies Cancer No Psychosocial History of Psychiatric Problem: No Integumentary History of Skin or Integumenta: No Blood Transfusions History of Blood Disorders: No Adverse Reaction to a Blood Tr: No (N/A) Family Medical History Significant Family History: Cancer, Hypertension, Renal Disease, Stroke Family Hx: Atrial fibrillation 19 FATHER 19 MOTHER Brain aneurysm 19 FATHER Colon cancer 19 MOTHER Diabetes mellitus 19 FATHER FH: cholecystectomy 19 FATHER 19 MOTHER G8 BROTHER FH: stomach cancer 19 FATHER FH: thyroid cancer 19 FATHER Hypertension 19 FATHER 19 MOTHER Kidney disease 19 MOTHER Constitutional: no symptoms reported EENTM: no symptoms reported Respiratory: no symptoms reported Cardiovascular: no symptoms reported Gastrointestinal: see HPI Genitourinary: no symptoms reported Musculoskeletal: no symptoms reported Skin: no symptoms reported Psychiatric/Neurological: No Symptoms Reported Physical Exam Vital Signs Capillary Refill : Height, Weight, BMI Height: 5'5.00" Weight: 198lbs. 0.0oz. 89.561078cg; 33.0 BMI Method:Stated General Appearance: No Apparent Distress Neck: Normal Inspection Respiratory: Lungs Clear Cardiovascular: No Edema Gastrointestinal: Non Tender, Soft Rectal: Deferred Extremity: Normal Inspection Neurologic/Psychiatric: Alert, Oriented x3 Skin: Warm/Dry Assessment/Plan Assessment and Plan Lady with a family history of colon cancer. Previous history of polyps. For colonoscopy. Admission Diagnosis Admission Status: Other (Outpt Proc) NIKOLE RALPH MD Sep 01, 2017 11:09 am
[2017-09-01] MEDS ORDERED: fentaNYL INJECTION 100 MCG/2 ML AMP ONE (12:00)
[2017-09-01] MEDS ORDERED: MIDAZOLAM 2 MG/2 ML (VERSED) VIAL ONE ×3 (12:00)
[2017-09-01] MEDS: MIDAZOLAM 2 MG/2 ML (VERSED) VIAL IVP PRN ×3 (12:25→12:31)
[2017-09-01] MEDS: fentaNYL INJECTION 100 MCG/2 ML AMP IVP PRN ×2 (12:26→12:29)
--- NOTE | 2017-09-01 12:47 | Endo Procedure Record ---
Endo Procedure Report Date of Procedure Last Colonoscopy: Yes (2012) Sep 01, 2017 Surgeon (s) NIKOLE TORRES MD Post Procedure/Op Diagnosis Colon polyps/ascending colon 2 Sigmoid diverticulosis Procedure Performed Colonoscopy to cecum Hot biopsy polypectomy 2 Description of Procedure Anesthesia Type: Conscious Sedation Specimen(s) collected/removed Right colon polyps Description of the Procedure Indication for the procedure: This lady, with a family history of colon cancer in her mother, came in for screening colonoscopy. She reported a personal history of polyps as well. Informed consent was obtained after reviewing the procedure in detail Description of the procedure: She was placed in left lateral decubitus position and her vital signs were monitored. Conscious sedation was achieved using Versed and fentanyl. Digital rectal examination was unremarkable. The colonoscope was then introduced in the rectum and advanced all the way up to cecum The quality of bowel preparation was excellent The scope was then withdrawn slowly and the mucosa examined in a systematic fashion. Findings: 1. Sigmoid diverticulosis 2. 2 polyps, a millimeter each, adjacent to each other, along the ascending colon. These were excised with hot biopsy forceps and sent off as one specimen. She tolerated the procedure well and was taken back to the nursing area in a stable condition. Impression: Screening colonoscopy. Positive family history. Small right colon polyps excised. Recommend repeating in 3 years. Copy Copies To 1: MOLINA VILLALOBOS MD,NIKOLE Buchanan MD Sep 01, 2017 12:47 pm
--- NOTE | 2017-09-01 12:48 | Discharge Inst-Simple/Standard ---
Discharge Inst-Standard Discharge Medications New, Converted or Re-Newed RX: Other Patient Instructions/Follow Up Plan of Care/Instructions/FU: Repeat colonoscopy in 3 years Activity as Tolerated: Yes Discharge Diet: No Restrictions NIKOLE TORRES MD Sep 01, 2017 12:48 pm
[2017-09-01 13:00] VITALS: BP 133/78
[2017-09-01 13:30] VITALS: BP 128/83
[2017-09-01 13:40] VITALS: BP 128/83
== END 2017-09-01 13:40 | disposition home or self-care (01) ==
LOC: ENDO 10:10
PROVIDERS: ATTEND Surgery
DX: Z12.11 Encounter for screening for malignant neoplasm of colon (principal); D12.6 Benign neoplasm of colon, unspecified; K57.30 Diverticulosis of large intestine without perforation or abscess without bleeding; I10 Essential (primary) hypertension; I34.0 Nonrheumatic mitral (valve) insufficiency; K21.9 Gastro-esophageal reflux disease without esophagitis; E07.9 Disorder of thyroid, unspecified; Z80.0 Family history of malignant neoplasm of digestive organs

== ENCOUNTER → 2017-10-14 | Outpatient (CLI) | payer BC ==
--- NOTE | 2017-10-14 19:16 | Diagnostic Imaging Report ---
INDICATION: Tailbone pain. FINDINGS: SI joints are unremarkable. No deformity or abnormal contour to the sacrococcygeal segments. No cortical lucency. No fracture. IMPRESSION: Negative. Dictated by: Dictated on workstation # [id number]
== END ==
LOC: RAD 15:28
PROVIDERS: ATTEND Nurse Practitioner Family
DX: M53.3 Sacrococcygeal disorders, not elsewhere classified (principal)
CPT/HCPCS: 72220

== ENCOUNTER → 2017-11-18 | Outpatient (CLI) | payer BC ==
--- NOTE | 2017-11-18 18:36 | Diagnostic Imaging Report ---
EXAMINATION: Right shoulder radiographs, 3 views. COMPARISON: None. HISTORY: 56-year-old female, right shoulder pain. Injury 3 weeks ago. FINDINGS: The acromioclavicular joint is normally aligned. There are no prominent acromioclavicular degenerative changes. The humeral head is normally positioned relative to the glenoid. Unremarkable appearance of the glenohumeral joint. There is no identified acute fracture. IMPRESSION: Unremarkable right shoulder radiographs. Dictated by: Dictated on workstation # [id number]
== END ==
LOC: RAD 16:19
PROVIDERS: ATTEND Nurse Practitioner Family
DX: M25.511 Pain in right shoulder (principal)
CPT/HCPCS: 73030

== ENCOUNTER → 2017-11-29 | Outpatient (CLI) | payer BC ==
--- NOTE | 2017-12-02 08:05 | Diagnostic Imaging Report ---
PROCEDURE: MRI right joint upper extremity without contrast. TECHNIQUE: Multiplanar, multisequence MR imaging of the right shoulder was performed without contrast. COMPARISON: Right shoulder radiographs from 11/18/2017. INDICATION: Right shoulder pain. FINDINGS: Rotator cuff: Focal high-grade partial versus full-thickness tear filled with granulation tissue in the mid supraspinatus near its myotendinous junction at the level of the mid humeral head. No associated tendon retraction is present. Mild fatty atrophy of the supraspinatus muscle belly is seen. Infraspinatus, teres minor and subscapularis remain intact. Mild tendinopathy of the subscapularis is present. Glenoid labrum: By non-arthrogram imaging, the glenoid labrum appears intact. No para-labral cyst. Long head of biceps: Long head of biceps is normally positioned within the bicipital groove. The intracapsular segment is intact. Bones and cartilage: Humeral head is normal in morphology without fracture or focal osseous lesion. No glenohumeral chondromalacia. Mild hypertrophic degenerative changes of acromioclavicular joint. Soft tissues: No glenohumeral joint effusion. No MRI findings to suggest adhesive capsulitis. There is a small amount of fluid and inflammation in the subacromial and subdeltoid space that is most indicative of bursitis. IMPRESSION: 1. High-grade partial versus full-thickness tear of the mid supraspinatus near its myotendinous junction. No tendon retraction, however, there is mild fatty atrophy of the muscle belly. 2. Long head of biceps is intact. 3. Subacromial and subdeltoid fluid suggest bursitis in the absence of recent therapeutic injection. Dictated by: Dictated on workstation # [id number]
== END ==
LOC: RAD 06:57
PROVIDERS: ATTEND Nurse Practitioner Family
DX: M25.511 Pain in right shoulder (principal)
CPT/HCPCS: 73221

== ENCOUNTER → 2018-01-06 | Outpatient (CLI) | payer BC ==
--- NOTE | 2018-01-06 15:35 | Diagnostic Imaging Report ---
PROCEDURE: US Non-OB pelvis comp/trans. TECHNIQUE: Multiple real-time grayscale images were obtained of the pelvis in various projections endovaginally. Transabdominal imaging was also performed. INDICATION: Pelvic pain and irregular menses. FINDINGS: The uterus measures 8.2 x 5.8 x 4.8 cm. No myometrial mass is detected. The endometrium is thickened at 12 mm. The ovaries could not be visualized. No adnexal mass or free fluid is seen. IMPRESSION: 1. Thickened endometrium. 2. Nonvisualized ovaries. Dictated by: Dictated on workstation # [id number]
--- NOTE | 2018-01-06 18:31 | Diagnostic Imaging Report ---
INDICATION: Routine screening. COMPARISON is made with prior mammograms from 12/11/2016 and 10/17/2015. 2-D and 3-D bilateral screening mammography was performed with CAD. FINDINGS: Both breasts are heterogeneously dense, limiting the sensitivity of mammography. Scattered benign-appearing calcifications are identified. Fibronodular pattern is seen similar to prior. No dominant mass or malignant appearing microcalcifications are seen. The axillae are unremarkable. IMPRESSION: BI-RADS category 2. No mammographic features suspicious for malignancy are identified. ACR BI-RADS Category 2: Benign findings. Result letter will be mailed to the patient. Note: At least 10% of breast cancer is not imaged by mammography. Dictated by: Dictated on workstation # [id number]
== END ==
LOC: RAD 14:45
PROVIDERS: ATTEND Obstetrics & Gynecology
DX: Z12.31 Encounter for screening mammogram for malignant neoplasm of breast (principal); N95.0 Postmenopausal bleeding; R93.89 Abnormal findings on diagnostic imaging of other specified body structures
CPT/HCPCS: 76830; 76856; 77067

== ENCOUNTER → 2018-05-20 | Outpatient (CLI) | payer BC ==
--- NOTE | 2018-05-20 16:19 | Diagnostic Imaging Report ---
PROCEDURE: US left lower extremity venous. TECHNIQUE: Multiple real-time grayscale images were obtained over the left lower extremity in various projections. Additional duplex Doppler and color Doppler images were also obtained. INDICATION: Left leg pain EXAMINATION: Grayscale and color Doppler evaluation of the deep veins of the left lower extremity were performed with waveform analysis. FINDINGS: Continuous venous flow is present. No intraluminal filling defect is identified. There is normal compressibility and response to augmentation. No abnormal perivascular fluid collection is identified. IMPRESSION: No ultrasound evidence of left lower extremity deep venous thrombosis. Dictated by: Dictated on workstation # [id number]
== END ==
LOC: RAD 15:14
PROVIDERS: ATTEND Nurse Practitioner Family
DX: R60.0 Localized edema (principal)

== ENCOUNTER 2018-09-24 00:45 | Emergency (ER) | payer BC ==
[~2018-09-24] VITALS: Ht 165.1 cm; Wt 90.7 kg
[2018-09-24] MEDS ORDERED: KETOROLAC 30 MG/ML VIAL IVP ONE (01:30)
[2018-09-24] MEDS ORDERED: ONDANSETRON 4 MG/2 ML (SDV) Z0FRAN IVP ONE (01:30)
[2018-09-24 01:31] LABS: BASOPHILS % (AUTO) 0 % (0-10); EOSINOPHILS # (AUTO) 0.1 10^3/uL (0.0-0.3); EOSINOPHILS % (AUTO) 1 % (0-10); HEMATOCRIT 50 % (35-52); HEMOGLOBIN 16.8 G/DL (11.5-16.0); LYMPHOCYTES # (AUTO) 1.9 X 10^3 (1.0-4.0); LYMPHOCYTES % (AUTO) 20 % (12-44); MEAN CORPUSCULAR HEMOGLOBIN 32 PG (25-34); MEAN CORPUSCULAR HGB CONC 34 G/DL (32-36); MEAN CORPUSCULAR VOLUME 94 FL (80-99); MEAN PLATELET VOLUME 9.3 FL (7.4-10.4); MONOCYTES # (AUTO) 1.1 X 10^3 (0.0-1.0); MONOCYTES % (AUTO) 12 % (0-12); NEUTROPHILS # (AUTO) 6.5 X 10^3 (1.8-7.8); NEUTROPHILS % (AUTO) 68 % (42-75); PLATELET COUNT 358 10^3/uL (130-400); RED CELL DISTRIBUTION WIDTH 12.8 % (10.0-14.5); WHITE BLOOD COUNT 9.6 10^3/uL (4.3-11.0)
--- NOTE | 2018-09-24 01:40 | ED General ---
General Chief Complaint: Head/Cervical Problems Stated Complaint: SMITH,BLOOD PRESSURE HIGH 155/99,NAUSEA Nursing Triage Note: AMBULATORY TO ED ROOM 6 WITH C/O H/A STARTING AT 2100, N/V. HX NECK PAIN AND HEADACHES AND ON CYCLOBENZAPRINE AND NAPROSYN FOR THEM, BUT THEY DO NOT SEEM TO BE HELPING. Nursing Sepsis Screen: No Definite Risk Source of Information: Patient Exam Limitations: No Limitations History of Present Illness Date Seen by Provider: Sep 24, 2018 Time Seen by Provider: 01:14 Initial Comments This 57-year-old woman presents to the emergency room with complaints of headache, nausea, and elevated blood pressure. She started not feeling well around 21:00. She also felt like her heart was racing intermittently. She recently had a dental extraction performed on September 22. She has taken a couple doses of hydrocodone since then. Her tooth is not bothering her now but she has a headache and her eyes. She is moderately hypertensive on assessment. Patient admits to having some problems with anxiety in the past and wonders if she's experiencing some of that now. Allergies and Home Medications Allergies Coded Allergies: butalbital (Verified Allergy, Mild, HIVES, 12/12/16) caffeine (Verified Allergy, Mild, HIVES, 12/12/16) Home Medications Acetaminophen 325 Mg Tablet, 650 MG PO PRN, (Reported) Calcium Carbonate 200 Mg Tab.chew, 200 MG PO PRN, (Reported) Calcium Carbonate/Vitamin D3 1 Each Tablet, 1 EACH PO DAILY, (Reported) Diphenhydramine HCl 25 Mg Capsule, 25 MG PO BID PRN for CONGESTION, (Reported) Levothyroxine Sodium 50 Mcg Tablet, 50 MCG PO DAILY, (Reported) Metoprolol Succinate 50 Mg Tab.er.24h, 50 MG PO HS, (Reported) Multivitamin 1 Each Tablet, 1 EACH PO DAILY, (Reported) Patient Home Medication List Home Medication List Reviewed: Yes Review of Systems Review of Systems Constitutional: no symptoms reported EENTM: see HPI Respiratory: no symptoms reported Cardiovascular: see HPI Gastrointestinal: see HPI Genitourinary: no symptoms reported : No Musculoskeletal: no symptoms reported Skin: no symptoms reported Psychiatric/Neurological: See HPI Hematologic/Lymphatic: No Symptoms Reported Immunological/Allergic: no symptoms reported Past Tbfgewa-Ztacfj-Nejfdc Hx Past Med/Social Hx: Reviewed and Corrections made Patient Social History Alcohol Use: Denies Use Recreational Drug Use: No Smoking Status: Never a Smoker Recent Foreign Travel: No Contact w/Someone Who Travel: No Recent Infectious Disease Expo: No Recent Hopitalizations: No Physical Abuse: No Sexual Abuse: No Mistreated: No Fear: No Immunizations Up To Date Tetanus Booster (TDap): More than 5yrs PED Vaccines UTD: No Seasonal Allergies Seasonal Allergies: Yes Past Medical History Surgeries: Yes (HERNIA, C sect x2, laproscopy ) Abdominal, Adenoidectomy, Section, Thyroidectomy (hemithyroidectomy), Tonsillectomy Respiratory: No Cardiac: Yes (MITRAL VALVE REGURGITATION) Hypertension Neurological: Yes Headaches /Migraines Reproductive Disorders: No Female Reproductive Disorders: Endometriosis Sexually Transmitted Disease: No HIV/AIDS: No Genitourinary: No Gastrointestinal: Yes Gastroesophageal Reflux, Ulcer Musculoskeletal: Yes (arthritis) Arthritis Endocrine: Yes (THYROIDECTOMY) HEENT: No Loss of Vision: Bilateral Hearing Impairment: Denies Cancer: No Psychosocial: No Integumentary: No Blood Disorders: No Adverse Reaction/Blood Tranf: No (N/A) Family Medical History Atrial fibrillation 19 FATHER 19 MOTHER Brain aneurysm 19 FATHER Colon cancer 19 MOTHER Diabetes mellitus 19 FATHER FH: cholecystectomy 19 FATHER 19 MOTHER G8 BROTHER FH: stomach cancer 19 FATHER FH: thyroid cancer 19 FATHER Hypertension 19 FATHER 19 MOTHER Kidney disease 19 MOTHER Cancer, Hypertension, Renal Disease, Stroke Physical Exam Vital Signs Vital Signs - First Documented 09/24/18 01:05 Temp 96.6 Pulse 97 Resp 20 B/P (MAP) 166/114 (131) O2 Delivery Room Air Capillary Refill : Less Than 3 Seconds Height, Weight, BMI Height: 5'5.00" Weight: 200lbs. 0oz. 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 II- XII Norm as Tested, Other (mildly anxious) Skin: Normal Color, Warm/Dry Progress/Results/Core Measures Suspected Sepsis Recent Fever Within 48 Hours: No Infection Criteria Present: None New/Unexplained Altered Menta: No Sepsis Screen: No Definite Risk SIRS Temperature:96.6 Pulse: 97 Respiratory Rate: 20 Laboratory Tests 09/24/18 01:15: White Blood Count 9.6 Blood Pressure 166 /114 Mean: 131 Laboratory Tests 09/24/18 01:15: Creatinine 0.78, Platelet Count 358 Results/Orders Lab Results Laboratory Tests Test 09/24/18 01:15 Range/Units White Blood Count 9.6 4.3-11.0 10^3/uL Red Blood Count 5.30 4.35-5.85 10^6/uL Hemoglobin 16.8 H 11.5-16.0 G/DL Hematocrit 50 35-52 % Mean Corpuscular Volume 94 80-99 FL Mean Corpuscular Hemoglobin 32 25-34 PG Mean Corpuscular Hemoglobin Concent 34 32-36 G/DL Red Cell Distribution Width 12.8 10.0-14.5 % Platelet Count 358 130-400 10^3/uL Mean Platelet Volume 9.3 7.4-10.4 FL Neutrophils (%) (Auto) 68 42-75 % Lymphocytes (%) (Auto) 20 12-44 % Monocytes (%) (Auto) 12 0-12 % Eosinophils (%) (Auto) 1 0-10 % Basophils (%) (Auto) 0 0-10 % Neutrophils # (Auto) 6.5 1.8-7.8 X 10^3 Lymphocytes # (Auto) 1.9 1.0-4.0 X 10^3 Monocytes # (Auto) 1.1 H 0.0-1.0 X 10^3 Eosinophils # (Auto) 0.1 0.0-0.3 10^3/uL Basophils # (Auto) 0.0 0.0-0.1 10^3/uL Sodium Level 140 135-145 MMOL/L Potassium Level 4.3 3.6-5.0 MMOL/L Chloride Level 104 98-107 MMOL/L Carbon Dioxide Level 24 21-32 MMOL/L Anion Gap 12 5-14 MMOL/L Blood Urea Nitrogen 17 7-18 MG/DL Creatinine 0.78 0.60-1.30 MG/DL Estimat Glomerular Filtration Rate > 60 BUN/Creatinine Ratio 22 Glucose Level 129 H 70-105 MG/DL Calcium Level 9.7 8.5-10.1 MG/DL Thyroid Stimulating Hormone (TSH) 1.45 0.35-4.94 UIU/ML Free Thyroxine 1.07 0.70-1.48 NG/DL My Orders Orders - LINA NUNN MD Ondansetron Injection (Zofran Injectio (09/24/18 01:30) Ketorolac Injection (Toradol Injection) (09/24/18 01:30) Basic Metabolic Panel (09/24/18 01:25) Cbc With Automated Diff (09/24/18 01:25) Thyroid Stimulating Hormone (09/24/18 01:25) Free T4 (Free Thyroxine) (09/24/18 01:25) Ed Iv/Invasive Line Start (09/24/18 01:25) Medications Given in ED Current Medications Medications Dose Ordered Sig/Rimma Route Start Time Stop Time Status Last Admin Dose Admin Ketorolac Tromethamine 15 mg ONCE ONCE IVP 09/24/18 01:30 09/24/18 01:31 DC 09/24/18 01:38 15 MG Ondansetron HCl 4 mg ONCE ONCE IVP 09/24/18 01:30 09/24/18 01:31 DC 09/24/18 01:38 4 MG Vital Signs/I&O 09/24/18 01:05 Temp 96.6 Pulse 97 Resp 20 B/P (MAP) 166/114 (131) O2 Delivery Room Air Capillary Refill : Less Than 3 Seconds Blood Pressure Mean: 131 Progress Note #1: Time: 01:48 Progress Note Patient is being treated with Toradol and Zofran for management of her symptoms. Labs are pending. Heart rhythm is sinus on the electrician assistant. Progress Note #2: Time: 02:20 Progress Note Workup was unremarkable. Patient's nausea resolved and headache improved. Blood pressure seemed to be trending downward. Patient was encouraged to return home and rest, perhaps taking some Tylenol and Benadryl if she was still not feeling well or having difficulty sleeping. Departure Impression Primary Impression: Acute headache Qualified Codes: R51 - Headache Additional Impressions: Nausea Hypertension Qualified Codes: I10 - Essential (primary) hypertension Disposition: 01 HOME, SELF-CARE Condition: Improved Departure-Patient Inst. Decision time for Depature: 02:21 Referrals: MOLINA VILLALOBOS MD (PCP/Family) Primary Care Physician Patient Instructions: Headache, Adult (DC), High Blood Pressure in Adults Add. Discharge Instructions: Continue your medications as previously prescribed. For treatment of headache you may use either naproxen as previously prescribed or ibuprofen up to 600 mg every 6 hours. You may additionally use Tylenol (acetaminophen) up to 1000 mg every 6 hours as needed. Follow-up with your primary care provider within the next 2 weeks to have your blood pressure checked again. Return to the emergency room or contact your doctor if you have worsening symptoms. Avoid things that may cause your blood pressure to elevate including excessive stress, excessive salt, and stimulants such as caffeine, decongestants medications, energy drinks, or diet supplements. All discharge instructions reviewed with patient and/or family. Voiced understanding. Copy Copies To 1: MOLINA VILLALOBOS MD, JOSHUA T MD Sep 24, 2018 01:40
[2018-09-24 01:45] LABS: BUN/CREATININE RATIO 22; CALCIUM 9.7 MG/DL (8.5-10.1); CARBON DIOXIDE 24 MMOL/L (21-32); CHLORIDE 104 MMOL/L (98-107); CREATININE SERUM 0.78 MG/DL (0.60-1.30); GFR ESTIMATED > 60; GLUCOSE 129 MG/DL (70-105); POTASSIUM 4.3 MMOL/L (3.6-5.0); SODIUM 140 MMOL/L (135-145)
[2018-09-24 02:08] LABS: FREE T4 (FREE THYROXINE) 1.07 NG/DL (0.70-1.48)
[2018-09-24 02:32] VITALS: BP 162/103
== END 2018-09-24 02:33 | disposition home or self-care (01) ==
LOC: EDUNIT# 00:45 → ER 00:47
DX: R51 Headache (principal); R11.0 Nausea; I10 Essential (primary) hypertension; F41.9 Anxiety disorder, unspecified; K21.9 Gastro-esophageal reflux disease without esophagitis; Z86.69 Personal history of other diseases of the nervous system and sense organs; Z90.89 Acquired absence of other organs; Z88.8 Allergy status to other drugs, medicaments and biological substances; Z98.890 Other specified postprocedural states; Z82.49 Family history of ischemic heart disease and other diseases of the circulatory system; Z80.0 Family history of malignant neoplasm of digestive organs; Z80.8 Family history of malignant neoplasm of other organs or systems
CPT/HCPCS: 36415; 80048; 84439; 84443; 85025

== ENCOUNTER 2018-12-10 07:59 | Outpatient (RCR) | payer BC | END 2018-12-10 09:20 | disposition home or self-care (01) | PROVIDERS: ATTEND Nurse Practitioner Family | DX: M62.89 Other specified disorders of muscle (principal); M25.511 Pain in right shoulder ==

== ENCOUNTER → 2019-02-09 | Outpatient (CLI) | payer BC ==
--- NOTE | 2019-02-09 16:13 | Diagnostic Imaging Report ---
Indication: Routine screening. Comparison is made with prior mammograms of 01/06/2018 and 12/11/2016. 2-D and 3-D bilateral screening mammography was performed with CAD. Scattered fibroglandular densities are identified bilaterally. There are benign calcifications bilaterally. No dominant mass or malignant appearing microcalcifications are seen. Axillae are unremarkable. IMPRESSION: BI-RADS Category 2. No mammographic features suspicious for malignancy are identified. ACR BI-RADS Category 2: Benign findings. Result letter will be mailed to the patient. Note: At least 10% of breast cancer is not imaged by mammography. Dictated by: Dictated on workstation # [id number]
== END ==
LOC: RAD 12:50
PROVIDERS: ATTEND Obstetrics & Gynecology
DX: Z12.31 Encounter for screening mammogram for malignant neoplasm of breast (principal)
CPT/HCPCS: 77067

== ENCOUNTER → 2019-02-11 | Outpatient (CLI) | payer BC | LOC: CARD 11:44 | PROVIDERS: ATTEND Internal Medicine Cardiovascular Disease | DX: I34.0 Nonrheumatic mitral (valve) insufficiency (principal); Z82.49 Family history of ischemic heart disease and other diseases of the circulatory system | CPT/HCPCS: 93306 ==

== ENCOUNTER → 2019-02-17 | Outpatient (CLI) | payer BC ==
[~2019-02-17] VITALS: Ht 165 cm; Wt 88.0 kg
[~2019-02-17] MED LIST changes: +CATHETER FLUSH 10 ML SYR IV PRN
[2019-02-17 13:28] VITALS: BP 150/106
[2019-02-17 13:33] VITALS: BP 202/113
--- NOTE | 2019-02-17 21:23 | STRESS TEST ---
DATE OF SERVICE: 02/17/2019 EXERCISE MYOVIEW STRESS TEST REPORT REFERRING PHYSICIAN: Dr. Thacker. Baseline heart rate is 75, baseline blood pressure 157/105. Baseline EKG is sinus rhythm with no ischemic changes. In summary, the patient was injected with 10.9 mCi of technetium-99 Myoview and the resting images were obtained. Then, the patient started exercising with a baseline heart rate, blood pressure and EKG mentioned above. The patient was able to exercise for 4 minutes on standard Sj protocol. With peak exercise level, there were no EKG changes. Blood pressure was 202/117. During recovery, heart rate and blood pressure returned to baseline. The resting and stress images were reviewed and compared in the short axis, horizontal long axis, and vertical long axis views. Review of the images showed breast attenuation with no significant ischemia or infarction. SSS is 3. SDS 1. TID value 1.0. On the gated images, the left ventricle appeared to be small in size with normal contractility. Calculated ejection fraction 79%. CONCLUSION: 1. Fair exercise tolerance, a total of 4 minutes on standard Sj protocol, total of 5.8 METS achieving 95% of maximum expected heart rate. 2. Severe hypertensive response to exercise returned to baseline during recovery with peak blood pressure 202/117. 3. Minimal nondiagnostic EKG changes with exercise returned to baseline during recovery. 4. Breast attenuation with no significant ischemia or infarction on SPECT images. 5. Normal left ventricular size with normal contractility. Calculated ejection fraction 79%. Job ID: [id number] DocumentID: [id number] Dictated Date: 02/17/2019 15:52:50 Adhesive Sprayer Date: 02/17/2019 21:22:02 Dictated By: HARRISON MORRIS MD
== END ==
LOC: CARD 11:54
PROVIDERS: ATTEND Internal Medicine Cardiovascular Disease
DX: I08.1 Rheumatic disorders of both mitral and tricuspid valves (principal); R06.02 Shortness of breath; Z82.49 Family history of ischemic heart disease and other diseases of the circulatory system
CPT/HCPCS: 78452; 93017

== ENCOUNTER → 2020-04-11 | Outpatient (CLI) | payer BC ==
[~2020-04-11] MED LIST changes: -CALC-6 PO; +CALC1TAB84 PO; -CATHETER FLUSH 10 ML SYR IV PRN; +DIPH25CA48 PO; -DIPH25CA6 PO; -METO-370 PO
--- NOTE | 2020-04-11 16:20 | Diagnostic Imaging Report ---
INDICATION: Routine screening. COMPARISON: 02/09/2019 and 01/06/2018. TECHNIQUE: 2D and 3D bilateral screening mammography was performed with CAD. FINDINGS: Both breasts are heterogeneously dense, limiting the sensitivity of mammography. The parenchymal pattern is stable. No mass or malignant appearing microcalcifications are seen. The axillae are unremarkable. IMPRESSION: No mammographic features suspicious for malignancy are identified. ACR BI-RADS Category 2: Benign findings. Result letter will be mailed to the patient. Note: At least 10% of breast cancer is not imaged by mammography. Dictated by: Dictated on workstation # [id number]
== END ==
LOC: RAD 14:25
PROVIDERS: ATTEND Obstetrics & Gynecology
DX: Z12.31 Encounter for screening mammogram for malignant neoplasm of breast (principal)
CPT/HCPCS: 77063; 77067

== ENCOUNTER 2020-08-22 05:32 | Outpatient (RCR) | payer BC ==
[~2020-08-22] VITALS: Ht 165.1 cm; Wt 84.4 kg
[~2020-08-22 05:32] MED LIST changes: +OMG1KC PO; +VALS40TA9 PO
== END 2020-08-22 10:17 | disposition home or self-care (01) ==
LOC: PREOP 05:32
PROVIDERS: ATTEND Surgery
DX: Z01.812 Encounter for preprocedural laboratory examination (principal); Z12.11 Encounter for screening for malignant neoplasm of colon; R13.10 Dysphagia, unspecified; Z86.010 Personal history of colon polyps; Z80.0 Family history of malignant neoplasm of digestive organs
CPT/HCPCS: 87635

== ENCOUNTER 2020-08-24 10:26 | Day surgery (SDC) | payer BC ==
[~2020-08-24] VITALS: Ht 165.1 cm; Wt 84.4 kg
[2020-08-24] VITALS (8 sets, daily range): BP systolic 98–137; BP diastolic 63–103
[2020-08-24] MEDS ORDERED: LACTATED RINGERS 1,000 ML IV STA (10:42)
[2020-08-24] MEDS ORDERED: HURRICAINE EXT TUBE (BENZOCAINE) XX PRN (10:45)
[2020-08-24] MEDS ORDERED: LACTATED RINGERS 1,000 ML IV ONE (10:47)
--- NOTE | 2020-08-24 11:00 | Progress Note-Pre Operative ---
Pre-Operative Progress Note H&P Reviewed The H&P was reviewed, patient examined and no changes noted. Date Seen by Provider: Aug 24, 2020 Time Seen by Provider: 10:59 Date H&P Reviewed: Aug 24, 2020 Time H&P Reviewed: 10:59 Pre-Operative Diagnosis: dysphagia, hx polyps, family hx colon cancer CHRISTINE MARTIN DO Aug 24, 2020 11:00
[2020-08-24] MEDS ORDERED: PROPOFOL INJECTION 50 ML IV ONE (11:03)
[2020-08-24] MEDS ORDERED: MIDAZOLAM 2 MG/2 ML (VERSED) VIAL ONE (11:03)
[2020-08-24] MEDS ORDERED: PANT40TA2 PO (11:34)
--- NOTE | 2020-08-24 11:36 | Discharge Inst-Simple/Standard ---
Discharge Inst-Standard Discharge Medications New, Converted or Re-Newed RX: Transmitted to Pharmacy Patient Instructions/Follow Up Plan of Care/Instructions/FU: 2-3 weeks alexandrea Activity as Tolerated: Yes Discharge Diet: Regular Diet (high fiber) CHRISTINE MARTIN DO Aug 24, 2020 11:36
--- NOTE | 2020-08-24 11:36 | Progress Note-Post Operative ---
Post-Operative Progess Note Surgeon (s)/Activity Aid (s) Surgeon CHRISTINE MARTIN DO Activity Aid: na Pre-Operative Diagnosis dysphagia, hx polyps, family hx colon cancer Post-Operative Diagnosis gastritis, diverticulosis Procedure & Operative Findings Date of Procedure 08/24/20 Procedure Performed/Findings egd c biopsies, colonoscopy Anesthesia Type per green building engineer Estimated Blood Loss Estimated blood loss (mL): none Specimens/Packing Specimens Removed antrum, ge CHRISTINE MARTIN DO Aug 24, 2020 11:36
--- NOTE | 2020-08-24 14:52 | Anesthesia-General Post-Op ---
MAC Patient Condition Mental Status/LOC: Same as Preop Cardiovascular: Satisfactory Nausea/Vomiting: Absent Respiratory: Satisfactory Pain: Controlled Complications: Absent Post Op Complications Complications None Follow Up Care/Instructions Patient Instructions None needed. Anesthesiology Discharge Order Discharge Order Patient is doing well, no complaints, stable vital signs, no apparent adverse anesthesia problems. No complications reported per nursing. NISHI IZQUIERDO CRNA Aug 24, 2020 14:52
--- NOTE | 2020-08-24 16:10 | OPERATIVE REPORT ---
DATE OF SERVICE: 08/24/2020 PREOPERATIVE DIAGNOSES: Dysphagia, history of polyps, family history of colon cancer. POSTOPERATIVE DIAGNOSES: Gastritis, diverticulosis. PROCEDURE: EGD with biopsies, colonoscopy. SURGEON: Christine Huff DO ANESTHESIA: Per INSIGHTS MANAGER. ESTIMATED BLOOD LOSS: None. COMPLICATIONS: None. INDICATIONS: The patient is a 59-year-old female with dysphagia symptoms and needing colonoscopy for family history of colon cancer and history of polyps. She understands risks and benefits of procedure and wished to proceed with procedure. Consent was signed in the chart. DESCRIPTION OF PROCEDURE: The patient was taken to the endoscopy suite, placed in left lateral recumbent position. Timeout was performed. Scope was inserted in mouth, down the esophagus, stomach and into the duodenum without difficulty. There were no polyps, masses or ulcerations. Scope was slowly retracted back in the stomach where it was further insufflated. Erythematous changes consistent with some slight gastritis present in the antrum. Biopsy of the antrum was obtained. Scope was retroflexed noting no other pathology. Scope was returned to its normal position, slowly withdrawn to distal esophagus. No polyps, masses or ulcerations. Biopsy of GE junction was obtained. Scope was then slowly retracted back until completely removed noting no other pathology. Digital rectal exam was performed. There were no palpable polyps, masses or ulcerations. Scope was inserted in the rectum, advanced all the way to cecum with minimal difficulty. The ileocecal valve was intubated, which had normal appearance. Scope was retracted back into the stomach. Prep was adequate. There were no polyps, masses or ulcerations within the cecum, ascending, transverse, descending and sigmoid colon. Very minimal amount of diverticulosis present in the sigmoid colon. Once in the rectum, scope was retroflexed noting no other pathology. Scope was returned to its normal position, slowly withdrawn until completely removed. The patient tolerated procedure well without any complications. She was taken to recovery room in stable condition. RECOMMENDATIONS: The patient will need repeat colonoscopy in 5 years. Any issues before that be seen at that time. The patient will be started on Protonix 40 mg daily. I would then convert this to Pepcid. If not controlled to go back on the Protonix. Would be on Protonix at least one month. Job ID: [id number] DocumentID: [id number] Dictated Date: 08/24/2020 11:39:21 Stave Machine Tender Date: 08/24/2020 16:09:12 Dictated By: CHRISTINE HUFF DO
== END 2020-08-24 12:50 | disposition home or self-care (01) ==
LOC: ENDO 10:26
PROVIDERS: ATTEND Surgery
DX: Z12.11 Encounter for screening for malignant neoplasm of colon (principal); K29.50 Unspecified chronic gastritis without bleeding; K57.30 Diverticulosis of large intestine without perforation or abscess without bleeding; I10 Essential (primary) hypertension; J45.909 Unspecified asthma, uncomplicated; K21.9 Gastro-esophageal reflux disease without esophagitis; E07.9 Disorder of thyroid, unspecified; Z80.0 Family history of malignant neoplasm of digestive organs; Z79.899 Other long term (current) drug therapy; Z98.890 Other specified postprocedural states; Z79.890 Hormone replacement therapy; Z79.2 Long term (current) use of antibiotics; Z86.010 Personal history of colon polyps
CPT/HCPCS: 88305

== ENCOUNTER → 2021-01-29 | Outpatient (CLI) | payer BC ==
[~2021-01-29] MED LIST changes: +HOLD METFORMIN - RECEIVED CONTRAST 20 ML VIAL IV SCH; +IOHEXOL 350 MG/ML 100 ML (OMNIPAQUE 350) VIAL IV ONE; +NS 100 ML (IVPB) BAG IV ONE; +PANT40TA2 PO
[2021-01-29 08:40] LABS: CREATININE SERUM 0.72 MG/DL (0.60-1.30)
--- NOTE | 2021-01-29 09:31 | Diagnostic Imaging Report ---
PROCEDURE: CT abdomen and pelvis with contrast. TECHNIQUE: Multiple contiguous axial images were obtained through the abdomen and pelvis after administration of intravenous contrast. Auto Exposure Controls were utilized during the CT exam to meet ALARA standards for radiation dose reduction. All CT scans use one or more of the following dose optimizing techniques: automated exposure control, MA and/or KvP adjustment based on patient size and exam type or iterative reconstruction. INDICATION: Left upper quadrant abdominal pain for 6 months. Comparison is made with prior CT from 04/11/2016. The lung bases are clear. The liver shows some mild generalized low density consistent with hepatic steatosis. No discrete liver mass is identified. Gallbladder is unremarkable. There is no biliary ductal dilatation. Pancreas and spleen are unremarkable. No adrenal mass is identified. The kidneys are unremarkable. Aorta is nonaneurysmal. No central retroperitoneal or mesenteric lymphadenopathy is seen. The small and large bowel loops are normal caliber. Bladder and uterus are unremarkable. There is no free fluid or fluid collection. No pelvic lymphadenopathy is seen. The bony structures are nonacute. IMPRESSION: Continued unremarkable CT of abdomen and pelvis with contrast. No acute feature is detected. Dictated by: Dictated on workstation # [id number]
== END ==
LOC: RAD 09:15
PROVIDERS: ATTEND Nurse Practitioner Family
DX: R10.12 Left upper quadrant pain (principal)
CPT/HCPCS: 36415; 74177; 82565; 84520

== ENCOUNTER 2021-03-19 14:51 | Emergency (ER) | payer OTHER, BC ==
[~2021-03-19] VITALS: Ht 165.1 cm; Wt 82.6 kg
[~2021-03-19 14:51] MED LIST changes: -HOLD METFORMIN - RECEIVED CONTRAST 20 ML VIAL IV SCH; -IOHEXOL 350 MG/ML 100 ML (OMNIPAQUE 350) VIAL IV ONE; -NS 100 ML (IVPB) BAG IV ONE
[2021-03-19 15:15] VITALS: BP 136/83
--- NOTE | 2021-03-19 15:58 | ED Upper Extremity ---
General Chief Complaint: Trauma-Non Activation Stated Complaint: FALL Source: patient Exam Limitations: no limitations History of Present Illness Date Seen by Provider: Mar 19, 2021 Time Seen by Provider: 15:45 Initial Comments Patient is a 60-year-old female who presents to the emergency department today with a chief complaint of right shoulder pain. Patient was walking into a local grocery store when she stepped in a puddle and then onto a patch of ice, slipped and fell onto her right shoulder. Had some pain to the left wrist, some pain to the left knee and right hip. Those pains have since gotten better. She did not hit her head or have loss of consciousness. No chest pain or shortness of breath no abdominal pain nausea or vomiting. She states specifically with range of motion, external rotation of the right arm she has intense shoulder pain. She has not taken anything for it. She states this injury happened just prior to arrival. She denies any numbness tingling or weakness to the hands. No open wounds. All other review of systems reviewed and negative except as stated. Onset: just prior to arrival Pain/Injury Location: right shoulder Method of Injury: fell Modifying Factors: Worse With Movement; Improves With Rest Allergies and Home Medications Allergies Coded Allergies: butalbital (Verified Allergy, Mild, HIVES, 12/12/16) caffeine (Verified Allergy, Mild, HIVES, 12/12/16) Patient Home Medication List Home Medication List Reviewed: Yes Acetaminophen (Acetaminophen) 325 Mg Tablet, 650 MG PO PRN, (Reported) Entered as Reported by: KAY LAUREANO on 12/12/16 144 Calcium Carbonate (Tums) 200 Mg Tab.chew, 200 MG PO PRN, (Reported) Entered as Reported by: KAY LAUREANO on 12/12/16 144 Calcium Carbonate/Vitamin D3 (Calcium 600 + Vit D 200 Tablet) 1 Each Tablet, 1 EACH PO DAILY, (Reported) Entered as Reported by: KAY LAURENAO on 12/12/16 144 Diphenhydramine HCl (Diphenhydramine HCl) 25 Mg Capsule, 25 MG PO BID PRN for CONGESTION, (Reported) Entered as Reported by: KAY LAUREANO on 12/12/16 144 Levothyroxine Sodium (Levothyroxine Sodium) 50 Mcg Tablet, 50 MCG PO DAILY, (Reported) Entered as Reported by: LEAH RICHARDSON on 08/25/17 1425 Metoprolol Succinate (Metoprolol Succinate) 50 Mg Tab.er.24h, 50 MG PO HS, (Reported) Entered as Reported by: KAY LAUREANO on 12/12/16 1446 [place] 3 Polyunsat Fatty Acids (Fish Oil 1,000 mg Capsule) 1,000 Mg Cap, 1,000 MG PO DAILY, (Reported) Entered as Reported by: BARRINGTON HAY on 08/17/20 0953 Pantoprazole Sodium (Protonix) 40 Mg Tablet.dr, 40 MG PO DAILY Prescribed by: CHRISTINE MARTIN on 08/24/20 1134 Valsartan (Valsartan) 40 Mg Tablet, 40 MG PO DAILY, (Reported) Entered as Reported by: BARRINGTON HAY on 08/17/20 0953 Review of Systems Constitutional: see HPI EENTM: no symptoms reported Respiratory: no symptoms reported Cardiovascular: no symptoms reported Gastrointestinal: no symptoms reported Genitourinary: no symptoms reported : No Musculoskeletal: joint pain (right shoulder; left wrist; right hip), other (mild upper back pain) Skin: no symptoms reported Psychiatric/Neurological: No Symptoms Reported All Other Systems Reviewed Negative Unless Noted: Yes Past Ybqvnpt-Dmukye-Rwmzjl Hx Immunizations Up To Date Tetanus Booster (TDap): More than 5yrs PED Vaccines UTD: No Seasonal Allergies Seasonal Allergies: Yes Past Medical History Surgeries: Yes (HERNIA, C sect x2, laproscopy ) Abdominal, Adenoidectomy, Section, Thyroidectomy, Tonsillectomy Respiratory: Yes (ALLERGY INDUCED ASTHMA) Asthma Cardiac: Yes (MITRAL VALVE REGURGITATION) Hypertension Neurological: Yes Headaches /Migraines Reproductive Disorders: No Female Reproductive Disorders: Endometriosis Sexually Transmitted Disease: No HIV/AIDS: No Genitourinary: No Gastrointestinal: Yes Gastroesophageal Reflux, Polyps, Ulcer Musculoskeletal: Yes (arthritis) Arthritis Endocrine: Yes (PARTIAL THYROIDECTOMY) HEENT: No Loss of Vision: Bilateral Hearing Impairment: Denies Cancer: No Psychosocial: Yes Anxiety Integumentary: No Blood Disorders: No Adverse Reaction/Blood Tranf: No (N/A) Family Medical History Atrial fibrillation 19 FATHER 19 MOTHER Brain aneurysm 19 FATHER Colon cancer 19 MOTHER Colon cancer 19 MOTHER Diabetes mellitus 19 FATHER FH: cholecystectomy 19 FATHER 19 MOTHER G8 BROTHER FH: stomach cancer 19 FATHER FH: thyroid cancer 19 FATHER Hypertension 19 FATHER 19 MOTHER Kidney disease 19 MOTHER Cancer, Hypertension, Renal Disease, Stroke Physical Exam Vital Signs Capillary Refill : Height, Weight, BMI Height: 5'5.00" Weight: 200lbs. 0oz. [id number]; 30.96 BMI Method:Stated General Appearance: WD/WN, no apparent distress HEENT: PERRL/EOMI Neck: non-tender, full range of motion Cardiovascular: regular rate, rhythm Respiratory: lungs clear, normal breath sounds, no respiratory distress, no accessory muscle use Back: no vertebral tenderness Shoulder: normal inspection, bone tenderness (Bony tenderness right distal clavicle), limited ROM (Limited range of motion especially to external rotation, abduction, and extension), pain Elbow/Forearm: normal inspection, non-tender, no evidence of injury, normal ROM, Right Wrist: Yes normal inspection, Yes non-tender, Yes no evidence of injury, Yes normal ROM Hand: normal inspection, non-tender, no evidence of injury, normal ROM, Right Neurologic/Psychiatric: no motor/sensory deficits, alert, normal mood/affect, oriented x 3 Skin: normal color, warm/dry Progress/Results/Core Measures Results/Orders My Orders Orders - JEFFY TILLMAN MD Shoulder, Right, 3 Views (03/19/21 15:54) Progress Progress Note : Time: 17:09 Progress Note Patient counseled on therapies for her shoulder including ywzi-sxk-qjotryr pain patches, Tylenol, ibuprofen as needed/tolerated. Sling for 24 hours. Follow-up with primary care, possible need for orthopedic referral and MRI in the future. She is comfortable with this plan of care she is relieved her shoulder is not broken. All questions are sought and answered. Diagnostic Imaging Diagonstic Imaging: Xray Comments NAME: [facility] REC#: [id number] PT STATUS: REG ER : 1960 PHYSICIAN: JEFFY TILLMAN MD ADMIT DATE: 03/19/21/ER Draft Date of Exam:03/19/21 SHOULDER, RIGHT, 3 VIEWS SHOULDER, RIGHT, 3 VIEWS INDICATION: Right shoulder pain. COMPARISON: None available. TECHNIQUE: Three views of the right shoulder. FINDINGS: No fracture or malalignment. AC joint osteoarthritis is present. Subacromial space is preserved. No abnormal soft tissue mineralizations. Prior surgical changes in the neck may be from thyroidectomy. IMPRESSION: No acute osseous abnormality about the right shoulder. Dictated on workstation # [id number] Dict: 03/19/21 1703 Trans: 03/19/21 1705 [id number] Interpreted by: MATTHEW TROTTER MD Electronically signed by: Departure Impression Primary Impression: Right shoulder injury Qualified Codes: S49.91XA - Unspecified injury of right shoulder and upper arm, initial encounter Disposition: HOME, SELF-CARE Condition: Stable Departure-Patient Inst. Decision time for Depature: 15:58 Referrals: MOLINA VILLALOBOS MD (PCP/Family) Primary Care Physician Add. Discharge Instructions: You may wear a sling for only the next 24 hours. After that I would like for you to do small gentle range of motion exercises to loosen up the shoulder joint. Ice packs for 20 minutes at a time 3-4 times daily over the next 1 to 2 days for pain. Qcdo-rni-uvlvrho lidocaine or "Salonpas" patches may also be helpful. Follow packaging directions. Ibuprofen, 3 tablets which is 600 mg, every 6-8 hours with food as needed for pain. Also you can take iocq-xcu-vupczmj extra strength Tylenol 2 pills every 6 hours as needed for pain. Follow-up with your primary care physician as you may need to ultimately be referred to an orthopedic surgeon for an MRI if you continue to have pain and d ifficulty with range of motion. Return to the emergency room for any new, concerning or emergent complaints. Copy Copies To 1: MOLINA VILLALOBOS MD, KATHRYN M MD Mar 19, 2021 15:58
--- NOTE | 2021-03-19 17:05 | Diagnostic Imaging Report ---
SHOULDER, RIGHT, 3 VIEWS INDICATION: Right shoulder pain. COMPARISON: None available. TECHNIQUE: Three views of the right shoulder. FINDINGS: No fracture or malalignment. AC joint osteoarthritis is present. Subacromial space is preserved. No abnormal soft tissue mineralizations. Prior surgical changes in the neck may be from thyroidectomy. IMPRESSION: No acute osseous abnormality about the right shoulder. Dictated by: Dictated on workstation # [id number]
== END 2021-03-19 17:18 | disposition home or self-care (01) ==
LOC: EDUNIT# 14:51 → ER 14:53
DX: S49.91XA Unspecified injury of right shoulder and upper arm, initial encounter (principal); J45.909 Unspecified asthma, uncomplicated; I10 Essential (primary) hypertension; G43.909 Migraine, unspecified, not intractable, without status migrainosus; K21.9 Gastro-esophageal reflux disease without esophagitis; Z79.899 Other long term (current) drug therapy; W00.0XXA Fall on same level due to ice and snow, initial encounter; Y92.512 Supermarket, store or market as the place of occurrence of the external cause
CPT/HCPCS: 73030; A4565

== ENCOUNTER → 2021-03-23 | Outpatient (REF) ==
--- NOTE | 2021-03-23 16:44 | Diagnostic Imaging Report ---
INDICATION: Pain. Three views were obtained. FINDINGS: The alignment is normal. There are mild degenerative changes. There is no fracture or dislocation. Soft tissues are unremarkable. IMPRESSION: Mild degenerative changes, otherwise unremarkable. Dictated by: Dictated on workstation # [id number]
== END ==
LOC: OCC 15:18
PROVIDERS: ATTEND Family Medicine
DX: M25.561 Pain in right knee (principal)
CPT/HCPCS: 73562

== ENCOUNTER → 2021-04-05 | Outpatient (REF) ==
--- NOTE | 2021-04-05 13:46 | Diagnostic Imaging Report ---
EXAMINATION: Right knee MRI, 04/05/2021. TECHNIQUE: Multiplanar, multisequence rxm-pgmyboce-nmoorgjq MRI of the right lower extremity was accomplished. INDICATION: Knee pain. FINDINGS: The extensor mechanism is intact. The ACL and PCL are intact. Lateral collateral ligamentous complex and MCL are intact. The medial and lateral menisci appear unremarkable. There is moderate loss of cartilage in the medial joint compartment with subchondral cystic change in the medial femoral condyle. Minimal thinning of the cartilage in the lateral joint space is also noted. There is ktrxoyrw-hi-uuhutf loss of cartilage over the patella, especially patellar apex and medial patellar facet with subchondral edema in the patella. There is a small joint effusion. There is a slit-like Elizabeth's cyst. There is no acute osseous abnormality. IMPRESSION: 1. Ligaments and tendons intact. 2. Menisci intact. 3. Tricompartmental degenerative disease. Dictated by: Dictated on workstation # [id number]
== END ==
LOC: OCC 12:04
PROVIDERS: ATTEND Nurse Practitioner Family
DX: M17.11 Unilateral primary osteoarthritis, right knee (principal)
CPT/HCPCS: 73721

== ENCOUNTER → 2021-04-12 | Outpatient (CLI) | payer BC ==
--- NOTE | 2021-04-13 09:21 | Diagnostic Imaging Report ---
INDICATION: Routine screening. COMPARISON: 04/11/2020 and 02/09/2019. TECHNIQUE: 2D and 3D bilateral screening mammography was performed with CAD. FINDINGS: Both breasts are heterogeneously dense, limiting the sensitivity of mammography. A cluster of calcifications in the right breast at mid depth just medial to the nipple line appears stable. There are benign calcifications laterally. There are benign calcifications in the left breast as well. No mass or malignant-appearing microcalcifications are seen. The axillae are unremarkable. IMPRESSION: No mammographic features suspicious for malignancy are identified. ACR BI-RADS Category 2: Benign findings. Result letter will be mailed to the patient. Note: At least 10% of breast cancer is not imaged by mammography. Dictated by: Dictated on workstation # [id number]
== END ==
LOC: RAD 15:00
PROVIDERS: ATTEND Obstetrics & Gynecology
DX: Z12.31 Encounter for screening mammogram for malignant neoplasm of breast (principal)
CPT/HCPCS: 77063; 77067

== ENCOUNTER → 2021-09-18 | Outpatient (CLI) | payer BC ==
--- NOTE | 2021-09-18 16:40 | Diagnostic Imaging Report ---
INDICATION: Shortness of breath and chest pain. TIME OF EXAM: 3:43 PM. COMPARISON: 07/10/2014. FINDINGS: The heart size is normal. The left hemidiaphragm is elevated. The lungs are clear. The pulmonary vascularity is normal. No infiltrates, effusion, or pneumothorax is detected. IMPRESSION: Elevated left hemidiaphragm. The study is otherwise unremarkable. Dictated by: Dictated on workstation # [id number]
== END ==
LOC: RAD 15:22
PROVIDERS: ATTEND Family Medicine
DX: Q79.1 Other congenital malformations of diaphragm (principal)
CPT/HCPCS: 71046

== ENCOUNTER → 2021-09-27 | Outpatient (CLI) | payer BC ==
[~2021-09-27] MED LIST changes: +RT-ALBUTEROL SULF 2.5 MG/3 ML PRE-MIX VIAL INH ONE
== END ==
LOC: RT 08:00
PROVIDERS: ATTEND Nurse Practitioner Family
DX: R07.89 Other chest pain (principal); Z77.22 Contact with and (suspected) exposure to environmental tobacco smoke (acute) (chronic)
CPT/HCPCS: 94060; 94726; 94729

== ENCOUNTER → 2022-10-31 | Outpatient (CLI) | payer BC ==
[~2022-10-31] MED LIST changes: +DIPH-1122 PO; -DIPH25CA48 PO; -RT-ALBUTEROL SULF 2.5 MG/3 ML PRE-MIX VIAL INH ONE
--- NOTE | 2022-10-31 13:57 | Diagnostic Imaging Report ---
INDICATION: Routine screening. Comparison is made with prior mammogram 04/12/2021 and 04/11/2020. 2-D and 3-D bilateral screening mammography was performed with CAD. The current study was also evaluated with a Computer Aided Detection (CAD) system. Both breasts are heterogeneously dense, limiting the sensitivity of mammography. The fibronodular parenchymal pattern appears to be stable. No dominant mass or malignant-appearing microcalcifications are seen. Benign consultations again noted. Axillae are unremarkable. IMPRESSION: BI-RADS Category 2 No mammographic features suspicious for malignancy are identified. ACR BI-RADS Category 2: Benign findings. Result letter will be mailed to the patient. Note: At least 10% of breast cancer is not imaged by mammography. Dictated by: Dictated on workstation # [id number]
== END ==
LOC: RAD 07:19
PROVIDERS: ATTEND Nurse Practitioner Women's Health
DX: Z12.31 Encounter for screening mammogram for malignant neoplasm of breast (principal)
CPT/HCPCS: 77063; 77067